=== PATIENT | female | born 1960 | race Caucasian/White ===

== ENCOUNTER → 2017-12-10 08:37 | Outpatient (CLI) | payer OTHER, SELFPAY ==
--- NOTE | 2017-12-10 08:43 | MRI_ITS ---
STUDY: MRI LUMBAR SPINE WITHOUT CONTRAST REASON FOR EXAM: Female, 57 years old. back pain, RIGHT SCIATIC PAIN, RIGHT LEG NUMBNESS, PAIN INTO BILAT BUTTOCKS. TECHNIQUE: Standardized fat and water weighted pulse sequences were obtained in the sagittal and axial planes. COMPARISON: September 21, 2012 FINDINGS: T12-L1: There is mild disc space narrowing and endplate spondylosis. There is no significant central canal or foraminal stenosis. Normal lumbar lordosis. There is no substantial scoliosis. Normal conus medullaris that terminates at the L1/L2 L1-2: There is mild disc space narrowing and endplate spondylosis. There is mild facet arthropathy without significant central canal or foraminal stenosis. L2-3: There is moderate disc space narrowing and endplate spondylosis. There is facet arthropathy with moderate central canal and mild bilateral foraminal stenosis. Findings are stable since the prior examination L3-4: There is moderate disc space narrowing and endplate sclerosis. There is a mild disc bulge and facet hypertrophy with mild central canal and mild bilateral foraminal stenosis. L4-5: There is moderate disc space narrowing and endplate spondylosis. There is facet arthropathy with severe central canal stenosis. There is mild bilateral foraminal stenosis. Findings are stable since the prior examination L5-S1: There is moderate disc space narrowing and endplate spondylosis. There is extensive facet arthropathy with mild central canal stenosis. There is mild bilateral foraminal stenosis. Findings are stable since the prior examination. Normal visualized sacral ala. Normal visualized paraspinous soft tissue structures. MRI/Spine Lumbar (Routine) IMPRESSION: Stable examination. L2/L3: Moderate central canal stenosis. L4/L5: Severe central canal stenosis. L5/S1: Severe facet arthropathy. Electronically Signed: Sebastian García MD at 8:35 EDT Tel , Service support ,
== END ==
PROVIDERS: Family Provider Family Medicine; PCP Family Medicine; Visit Provider Anesthesiology Pain Medicine
DX: M54.9 Dorsalgia, unspecified (principal); M79.606 Pain in leg, unspecified
CPT/HCPCS: 72148

== ENCOUNTER → 2018-01-20 07:31 | Outpatient (CLI) | payer OTHER, SELFPAY ==
--- NOTE | 2018-01-20 07:45 | MRI_ITS ---
STUDY: MRI RIGHT ANKLE WITHOUT CONTRAST REASON FOR EXAM: Female, 57 years old. Pain. TECHNIQUE: Standardized fat and water weighted pulse sequences were obtained in all 3 orthogonal planes. COMPARISON: None. FINDINGS: Normal subcutis adipose space. Normal posterior tibialis tendon. Normal flexor digitorum longus tendon. Normal flexor hallucis longus tendon. Normal peroneus longus and brevis tendons. There is tenosynovitis of the tibialis anterior tendon. Normal extensor hallucis longus tendon. Normal extensor digitorum longus tendons. Normal Achilles tendon and teno-osseous insertion. There is thickening of the central cord of the plantar fascia, without a plantar fasciitis or plantar fascial tear, consistent with plantar fascial degeneration. There is a plantar calcaneal spur, but without cancellous marrow edema. Normal intrinsic muscles of the rearfoot. Normal distal tibiofibular syndesmotic ligamentous complex. Normal lateral ligamentous complex. Normal subtalar ligaments and sinus tarsi. Normal deltoid ligamentous complexes. Normal plantar calcaneonavicular (spring) ligament. There is a joint effusion of the tibiotalar articulation with capsular distension. Normal talar dome. Mild arthritic change of the subtalar articulations. Mild arthritic change at the talonavicular articulation. Normal calcaneocuboid articulation. Normal navicular-cuneiform articulations. MRI/Lower Ext Joint Only (Routine) IMPRESSION: Tenosynovitis of the tibialis anterior. Mild arthritic changes of the hindfoot. Plantar heel spur. Thickening of the plantar fascia. No osteochondral injury of the talar dome. Electronically Signed: Jimy Chiang MD at 9:37 EDT , Service support ,
== END ==
PROVIDERS: Family Provider Family Medicine; PCP Family Medicine; Visit Provider Podiatrist
DX: M25.571 Pain in right ankle and joints of right foot (principal); G57.50 Tarsal tunnel syndrome, unspecified lower limb
CPT/HCPCS: 73721

== ENCOUNTER → 2018-04-20 12:13 | Outpatient (CLI) | payer OTHER, SELFPAY | PROVIDERS: Family Provider Family Medicine; PCP Family Medicine; Visit Provider Family Medicine | DX: Z01.818 Encounter for other preprocedural examination (principal) | CPT/HCPCS: 71046 ==

== ENCOUNTER 2018-04-28 16:00 | Observation (INO) | payer OTHER, SELFPAY ==
[2018-04-28] VITALS (11 sets, daily range): BP systolic 118–142; BP diastolic 62–86; PULSE 74–98; RESP 15–18; TEMP 35.8–37.2; O2SAT 93–99; BMI 38.4
[2018-04-28] MEDS: Cefazolin 2 GM in 0.9% Normal Saline 100 ML IV (07:34)
[2018-04-28] MEDS: Bupivacaine Mpf 0.5% 30 ML VIAL (13:12)
--- NOTE | 2018-04-28 13:47 | PCM.DC.POD ---
Discharge Diet: No Restrictions Discharge Activity: May not drive while taking narcotic pain medications. Weight Bearing Status: No weight bearing Keep extremity elevated above heart level: Right Leg Call your doctor if your incision/area has: Continuous Slow Oozing, Sudden Increased Bleeding, Increased Pain/ Swelling, Increased Redness, Foul Smelling Discharge, Swelling at the incision site Call your doctor if you observe: Fever of 101 or Higher, Coldness, Increased Pain, Numbness or Tingling, Chest pain, Calf discomfort, Uncontrolled pain Cleanse incision/area with: Keep Dressing Clean & Dry Allergies/Adverse Reactions: Allergies adhesive tape Adverse Reaction (Mild, Verified 04/28/18 05:49) itching Medications to take at Discharge Ascorbic Acid [Vitamin C] 1,000 mg PO DAILY@0800 05/09/14 Calcium Carb/Vitamin D3/Vit K1 [Viactiv Soft Chew] 1 ea PO BID 05/09/14 Celecoxib [Celebrex] 200 mg PO DAILY 05/09/14 Gabapentin [Neurontin] 300 mg PO QHS 05/09/14 Glucosa Santa 2Kcl/Chondroitin Santa [Glucosamine-Chondroitin Cap] 4 ea PO DAILY 05/09/14 Tizanidine HCl [Zanaflex] 4 mg PO QHS 11/14/14 acetaminophen 500 mg tablet 500 mg PO Q6H PRN 08/19/17 traMADol [Ultram (G)] 50 mg PO Q6H PRN PRN 04/24/18 Primary Care Physician: Waldemar Raymond MD [Primary Care Provider] - Test Results: Test results from this visit will be discussed in further detail at your follow-up appointment, if applicable. Please Follow Up With: Maggy Graham DPM
--- NOTE | 2018-04-28 13:49 | PCM.IMDPSTOP ---
Problem List (1) Right foot pain Status: Chronic (2) Hallux valgus (acquired), right foot Status: Chronic (3) Pes planus of right foot Status: Chronic (4) Gastrocnemius equinus of right lower extremity Status: Chronic Immediate Post-Op Note Date of Procedure: 04/28/18 - Health Social Work Professor: Beti Brooks PGY3. Surgeon: Maggy Graham DPM Primary Surgeon/Physician: Maggy Graham DPM tortilla maker: none Pre-Operative Diagnosis: pes planus symptomatic, right. gastrocnemius equinus, right. hallux valgus, right Post-Operative Diagnosis: pes planus symptomatic, right. gastrocnemius equinus, right. hallux valgus, right Surgery/Procedure Performed:: gastrocnemius open recession, right. sergey calcaneus osteotomy with graft, right. flexor digitorum longus tendon transfer with plication to posterior tibialis tendon, right. lapidus bunionectomy with internal fixation, right Description of Surgical Findings:: Hemostasis controlled Materials: 2-0 Vicryl, 3-0 Vicryl, 4-0 nylon, 4.0 mm cannulated short threaded screw, 2?3.5 mm locking screws, 2?3.5 mm cortical screws, plantar Lapidus standard plate, 4.75 swivel lock Bio-Tenodesis screw, titanium/bone graft 18 mm Marcial wedge The patient tolerated the procedure well and was transported to the PACU with vital signs stable and vascular status intact to the right lower extremity. She was advised to remain non weightbearing. Orders were placed electronically. Post operative xrays were ordered. Estimated Blood Loss: <200 mL Specimen's removed: none Type of Anesthesia:: General/Regional, Local - Preop: 4 cc of one-to-one mix of 1% lidocaine with epinephrine administered to gastrocnemius recession site, right lower extremity Postop: 13 cc total administered to the right lower extremity including saphenous and tibial nerve block and local infiltrative block to the lateral surgical site - Admit VTE Documentation VTE Present on Admission: No VTE Mechan Device Prophylaxis: SCD's VTE Pharm Prophylaxis ordered?: Yes
--- NOTE | 2018-04-28 13:55 | PCM.OPRPT ---
Problem List (1) Right foot pain Status: Chronic (2) Hallux valgus (acquired), right foot Status: Chronic (3) Pes planus of right foot Status: Chronic (4) Gastrocnemius equinus of right lower extremity Status: Chronic Report of Operation Date of Procedure: 04/28/18 - Roll Carrier: Beti Brooks PGY3. Surgeon: Maggy Graham DPM Pre-Operative Diagnosis: pes planus symptomatic, right. gastrocnemius equinus, right. hallux valgus, right Post-Operative Diagnosis: pes planus symptomatic, right. gastrocnemius equinus, right. hallux valgus, right Surgery/Procedure Performed:: gastrocnemius open recession, right. sergey calcaneus osteotomy with graft, right. flexor digitorum longus tendon transfer with plication to posterior tibialis tendon, right. lapidus bunionectomy with internal fixation, right Description of Surgical Findings:: Hemostasis: Well-padded pneumatic right thigh tourniquet, 300 mmHg Materials: 2-0 Vicryl, 3-0 Vicryl, 4-0 nylon, 4.0 mm cannulated short threaded screw, 2?3.5 mm locking screws, 2?3.5 mm cortical screws, plantar Lapidus standard plate, 4.75 swivel lock Bio-Tenodesis screw, marcial Biosync anatomic reconstructive wedge with porous titanium (8 mm) Complications: None leather crafter: none Type of Anesthesia:: General/Regional, Local - Preop: 4 cc of one-to-one mix of 1% lidocaine with epinephrine administered to gastrocnemius recession site, right lower extremity Postop: 13 cc total administered to the right lower extremity including saphenous and tibial nerve block and local infiltrative block to the lateral surgical site Specimen's removed: none Estimated Blood Loss (mL): <200 mL Description of Procedure: Indications: This is a 57-year-old female with significant past medical history of obesity, chronic back pain, and chronic pain with multiple orthopedic conditions who continues to complain of right foot pain that is affecting her daily work and daily activities. She is unable to bear weight and get through a regular work shift. She is failed conservative care including orthotics, physical therapy, stretching, cortisone injections, strengthening, pain medications, Wendy brace. She has progressive flattening of her foot with advanced bunion deformity. Most recently her pain is consistent with lateral impingement. She does have x-rays which demonstrated a severe increased intermetatarsal angle with prominent medial eminence of the first metatarsal head and lateral hallux deviation. There is also decreased calcaneal inclination angle, anterior displaced cyma line, increased Meary's angle and midtarsal breach. Her pain on palpation is over by the lateral sinus tarsi location and weightbearing stance to the plantar arch and medial foot. She did also have an MRI done and this demonstrated subtle tenosynovitis of the posterior tibial tendon, very mild bone edema consistent with lateral impingement and mild arthritis changes to the rearfoot. There is no talar dome lesion or advanced arthritis of the ankle noted on the MRI. She did have a diagnostic injection to the sinus tarsi which did not provide more than 20% relief. She did have a diagnostic injection to the tarsal tunnel around the tibial nerve and this did not provide relief to her medial foot symptoms. Her EMG nerve conduction study are also noted and she does have history of chronic back pain and this may also be contributing to her condition. Her planar dominance is in the transverse plane when she is evaluated with walking gait and in stance. Her preoperative clearance and history and physical from Dr. Raymond was reviewed. Her preoperative diagnostic data was also reviewed including labs, EKG, and chest xray. The preoperative indications, planned procedure, possible benefits, risks, complications, and anticipated healing time and management were discussed in detail with patient. She understands and elects to proceed with surgery at this time. She understands complications may include but are not limited to the following: Pain, swelling, scarring, nontender delayed healing, over or under correction, hardware failure, need for further surgery, allergic reactions, blood clots, loss of limb, function, life. I answered all of her questions. The informed surgical consent and surgical limb were signed. Procedure in detail: The patient was transferred to the operating room via cart and placed on the operating table in supine position. Final verification the patient, surgery, limb designation was performed via the timeout procedure. A bump was placed to allow good exposure to the lateral rear foot. Well-padded pneumatic thigh tourniquet was placed. General anesthesia was initiated by the anesthesia team. The right lower extremity was prepped and draped in the usual aseptic manner. Next her posterior leg flexibility was evaluated for equinus with the Silverskold test. She had improve ankle dorsiflexion with the knee flexed and the decision to perform a gastrocnemius recession was performed. I administered the preoperative local block with lidocaine with epinephrine to the gastrocnemius recession site. A 3 cm linear incision was about three cm distal to the medial head of the gastrocnemius muscle belly through the skin just medial to the leg midline. Care was taken at this point and throughout all of the procedures performed today to identify, protect, and retract all neurovascular structures. Blunt dissection was performed down to the fascial layer in which the aponeurosis was identified. Careful dissection was performed with tenotomy scissors to release just the gastrocnemius layer (Lauren technique). Ankle dorsiflexion was improved. This was copiously irrigated with normal saline. Deep closure was achieved with Vicryl. Next, an Esmarch bandage was used to exsanguinate the right lower extremity and the tourniquet was inflated at this time. Surgery proceeded in the following manner: Attention was next directed to the lateral aspect of the hindfoot in which a curvilinear incision was made to gain exposure to the anterior calcaneus to allow surgical correction. This incision was made through the skin and blunt dissection was performed down to the extensor digitorum brevis taking care to further identify protect and retract all neurovascular bundles at this time and throughout the remainder of the procedure. The anterior process of the calcaneus was identified in the extensor digitorum brevis muscle was reflected to gain good exposure as were the peroneal tendons. The calcaneal cuboid joint was identified with intraoperative fluoroscopy with a needle. Approximately 1.2 cm proximal to the joint, an osteotomy was made with a sagittal saw and osteotome. A small joint distractor was used to open this site to find the appropriate correction needed in multiple planes. An Arthrex Navitellync trapezoid shaped wedge was placed according to standard protocol (8mm). It is noted that the cyma line was reduced and full talar head coverage was achieved. The subtalar joint moved freely. The wound was irrigated and deep closure was performed over this site with the extensor digitorum brevis muscle belly tagged over the wedge to the anterior calcaneus. Attention was next directed to the medial aspect of the foot in which a curvilinear incision was made over the posterior tibialis tendon also extending distally to the navicular attachment site and further distal to the proximal phalanx of the hallux in preparation for the later bunionectomy procedure. No hypertrophy of the navicular was noted. The flexor digitorum longus tendon was carefully dissected and was released as distal as possible taking care to identify and preserve neurovascular structures in this area. This tendon (FDL) was viable and thus was selected for tendon transfer. The Bio-Tenodesis screw was next used to apply the flexor digitorum tendon transfer into the navicular utilizing proper technique and with the foot in a plantarflexed and inverted position with zero tension. Anastomosis was next performed between this flexor digitorum longus tendon and the posterior tibialis tendon at this site with size 0 FiberWire. Deep closure was next performed with Vicryl to provide additional stability. The subtalar joint was placed in neutral and her foot was evaluated for forefoot varus in which this was not identified. The medial column was evaluated and a first metatarsal cuneiform arthrodesis with bunion correction to correct her full deformity was performed next. Attention was next directed towards the bunion deformity. The medial incision was extended distally in the interface between the abductor hallucis muscle belly and plantar first metatarsal was identified and carefully dissected. The first metatarsocuneiform articulation was identified clinically and confirmed with intraoperative fluoroscopy. A 15 blade, osteotomes, curettes, and sagittal saw was used to denude the articular surface down to bleeding healthy subchondral bone in the joint was mobilized to allow for correction. A K wire and tenaculum were placed with the first metatarsal now with varus rotation correction achieved. Sesamoid reduction, decreased first intermetatarsal angle, and [id number] approximation was confirmed with intraoperative fluoroscopy. Cancellous bone chips were placed into the arthrodesis site and temporary fixation across the site with K wires was placed. A plantar Arthrex Lapidus plate was fashioned and temporary held in place with wires and BB taks. The tourniquet was deflated and brisk capillary refill time was noted to all digits of the right foot. There was no pulsatile bleeding noted and pressure was applied to maintain hemostasis. The tourniquet was deflated for an appropriate amount of time to allow tissue reperfusion for over 20 minutes. Reinflation was later performed after Esmarch reexsanguination. The plate was secured distally prior to compression screw application. Care was taken to remove all temporary fixation while the compression was applied. Lastly the plate was secured proximally and the unit was clinically and radiographically stressed and appeared to be stable as one solid unit. The reduction was maintained and all screws and hardware placement maintained the proper and desired trajectory. Next, attention was directed to the first metatarsophalangeal joint in which careful capsular dissection was performed. A sagittal saw was used to resect the hypertrophic medial prominent eminence taking care to preserve the sagittal sulcus. Additional cheilectomy was performed dorsally to allow improved sagittal plane motion. The joint was smooth and gliding. A McGlamry elevator was used to mobilize as slightly adhesed lateral sesamoid. This was irrigated with copious normal saline. No first metatarsal head osteotomy was deemed necessary nor there any first metatarsal head osteochondral defect. Capsular closure was next achieved with 2-0 Vicryl taking care to maintain the desired bony correction and a capsulorrhaphy was performed with 2-0 Vicryl for reapproximation. Additional deep closure was performed to all sites utilizing 2-0 and 3-0 Vicryl. The tourniquet was again deflated at this time and brisk capillary refill time was noted to all digits of the foot. There was no pulsatile bleeding. The skin was reapproximated 4-0 nylon utilizing horizontal mattress and simple suture techniques all sites. Next, the patient was evaluated with final intraoperative fluoroscopy demonstrating desired position of the Marcial osteotomy wedge, bunion correction, and overall foot position. A postoperative injection was administered. A dressing consisting of Betadine soaked Adaptic, gauze, abdominal pads, Kerlix, webril were applied. A well-padded posterior mold was placed with the foot in a neutral slightly inverted and plantarflexed position to protect the tendon transfer site. After procedure: The patient tolerated the procedure and anesthesia well was transported to the PACU with vital signs stable and vascular status intact to the right foot. Postoperative x-rays were obtained and reviewed as noted previously. She was advised to maintain strict nonweightbearing status to the right lower extremity use crutches for assistance. She did obtain a popliteal regional block for pain control. Her family is concerned about her returning home due to pain when the block wears off and it is noted she has had extensive work performed today and she does have history of chronic pain issues. She will be monitored under observation status until tomorrow morning to assist with pain control. Postoperative orders were entered electronically. She will resume DVT prophylaxis medication tomorrow. She understands her surgical and postoperative risks. To keep her dressing clean, dry, and intact until follow-up next week. I will follow her closely in house. She is advised to ice and elevate for pain and inflammation management. Additional postoperative orders were entered electronically. Maggy Graham DPM, FACF[facility] - Complications None
--- NOTE | 2018-04-28 16:06 | PCM.HP.STD ---
History of Present Illness Date of Admission: 04/28/18 Chief Complaint: status post gastrocnemius open recession, right. sergey calcaneus osteotomy with graft, right. flexor digitorum longus tendon transfer with plication to posterior tibialis tendon, right. lapidus bunionectomy with internal fixation, right The patient is a 57 year old F who underwent astrocnemius open recession, right. sergey calcaneus osteotomy with graft, right. flexor digitorum longus tendon transfer with plication to posterior tibialis tendon, right. lapidus bunionectomy with internal fixation, right. Patient groggy and had a nerve blocks as feeling in her right leg at this time. Denies any new complaints. [] Past Medical History Past Medical History (Chronic Problems): Chronic Problems (Last Reviewed 04/28/18 @ 16:07 by Shawn Louise DO) Right foot pain (Chronic) Hallux valgus (acquired), right foot (Chronic) Pes planus of right foot (Chronic) Gastrocnemius equinus of right lower extremity (Chronic) DDD (degenerative disc disease), lumbar (Chronic) Arthritis (Chronic) Sciatica (Chronic) Obesity (BMI 30-39.9) (Chronic) Medical History: Medical History (Last Reviewed 04/28/18 @ 16:07 by Shawn Louise DO) DDD (degenerative disc disease), lumbar (Chronic) M51.36 Arthritis M19.90 Deficiency of internal organs Z87.898 History of back pain Z87.39 Knee pain, right M25.561 Polyneuropathy G62.9 Post hysterectomy menopause E89.40, Z90.710 Allergies adhesive tape Adverse Reaction (Mild, Verified 04/28/18 05:49) itching Home Medications: Ambulatory Orders Medication Instructions Recorded Ascorbic Acid [Vitamin C] 1,000 mg PO DAILY@0800 05/09/14 Calcium Carb/Vitamin D3/Vit K1 1 ea PO BID 05/09/14 [Viactiv Soft Chew] Celecoxib [Celebrex] 200 mg PO DAILY 05/09/14 Gabapentin [Neurontin] 300 mg PO QHS 05/09/14 Glucosa Santa 2Kcl/Chondroitin Santa 4 ea PO DAILY 05/09/14 [Glucosamine-Chondroitin Cap] Tizanidine HCl [Zanaflex] 4 mg PO QHS 11/14/14 acetaminophen 500 mg tablet 500 mg PO Q6H PRN 12/15/17 traMADol [Ultram (G)] 50 mg PO Q6H PRN PRN 04/24/18 Surgical History: Surgical History (Last Reviewed 04/28/18 @ 16:07 by Shawn Louise DO) H/O arthroscopy of right knee Z98.890 H/O hernia repair Z98.890, Z87.19 H/O tubal ligation Z98.51 History of bunionectomy of left great toe Z98.890 History of surgical removal of ganglion cyst Z98.890 Hx of rotator cuff surgery Z98.890 S/P laparoscopic assisted vaginal hysterectomy (LAVH) Z90.710 Total knee replacement status Z96.659 Surgical History: hysterectomy, rotator cuff repair Smoking Status: Former smoker - *Family History Maternal Family History: Family History (Last Reviewed 04/28/18 @ 16:07 by Shawn Louise DO) Mother Breast cancer Dementia Father Prostate cancer Hypertension Review of Systems Constitutional: Denies: Anorexia, Chills, Fever Eyes: Denies: Blurred vision, Double vision HEENT: Denies: Head Aches, Sinus Congestion, Sinus Drainage Cardiovascular: Denies: Chest Pain, Palpitations Respiratory: Denies: Cough, Shortness of breath at rest, Sputum production Gastrointestinal: Denies: Abdominal Pain, Nausea, Vomiting Genitourinary: Denies: Dysuria Musculoskeletal: Denies: Joint Pain, Joint Tenderness Skin: Denies: Rash, Wounds Neurological: Denies: Numbness, Tingling, Focal weakness Psychiatric: Denies: Anxiety, Depression Hematologic/ Lymphatic: Denies: Easy Bruising, Easy Bleeding, Hx of blood clot Comment: Groggy. All review of systems are negative except as mentioned in the history of present illness and the other review of systems. VTE Information - Inpt Only VTE Present on Admission: No VTE Pharm Prophylaxis ordered?: Yes - Physical Exam General: Alert, Cooperative, No apparent distress HEENT: Atraumatic, Normocephalic Oral: Moist Mucosa, No Gingival or Mucosal Lesions/ Ulcerations Neck: No Nodes, Thyroid Normal Size and Texture Lungs: Clear to auscultation, Normal air movement, No rhonchi, No wheeze Cardiovascular: Regular rate, Regular Rhythm, Normal S1, Normal S2, No murmurs Abdomen: Bowel Sounds Present, Soft, Non Tender, Non-Distended, No Hepato-splenomegaly Extremities: No edema, No Calf Tenderness, - - Right lower extremity in a splint and Neftali wrap, did not remove. Skin: No rashes, No breakdown Neurological: - - Not able to move the digits of her left foot at this time Psych/Mental Status: Normal Affect, Appropriate Vital Signs Temp Pulse Resp BP Pulse Ox 36.3 C L 74 18 129/84 H 95 04/28/18 14:35 04/28/18 14:35 04/28/18 14:35 04/28/18 14:35 04/28/18 14:35 Oxygen Flow Rate (L/min) 2 Oxygen Delivery Method Room Air Weight: 104.8 kg Body Mass Index (BMI) 38.4 Intake and Output for Last 24 Hours 04/26/18 04/27/18 04/28/18 23:59 23:59 23:59 Intake Total 2500 / 2500 Balance 2500 / 2500 Assessment/Plan All Active Problems (Last Reviewed 04/28/18 @ 16:07 by Shawn Louise DO) Sinusitis (Acute) Gastroenteritis (Acute) Pharyngitis, acute (Acute) Right calf pain (Acute) Osteoarthritis (Acute) Sciatica (Acute) Segmental and somatic dysfunction of cervical region (Acute) Segmental and somatic dysfunction of thoracic region (Acute) Segmental and somatic dysfunction of lumbar region (Acute) Status post bilateral knee replacements (Acute) 1. Status postastrocnemius open recession, right. sergey calcaneus osteotomy with graft, right. flexor digitorum longus tendon transfer with plication to posterior tibialis tendon, right. lapidus bunionectomy with internal fixation, right Plan is to bring the patient under observation status to ensure adequate pain control given the extensive surgery. Patient will have pain medications available and have been ordered Podiatry will follow and help direct care 2. DVT prophylaxis: Caridadnox Code Visit OBSV E&M: 30596 Initial observation care L2
[2018-04-28] MEDS: Ondansetron 4 MG/2 ML Vial IV (18:21)
[2018-04-28] MEDS: Acetaminophen 500 MG Tablet PO (18:21)
[2018-04-28] MEDS: 0.9% NaCl Peripheral Flush Adult/Peds IV (18:22)
[2018-04-28] MEDS: Gabapentin 300 MG Capsule PO (20:53)
[2018-04-28] MEDS: Multivitamins,Therapeutic Tablet 1 TABLET PO (20:53)
[2018-04-28] MEDS: tiZANidine HCl 2 MG Tablet 4 MG PO (20:53)
[2018-04-28] MEDS: Ketorolac 30 MG/ML Syringe IV (22:55)
[2018-04-29 03:20] VITALS: BP 118/59; PULSE 103; RESP 15; TEMP 37.3; O2SAT 95
[2018-04-29 04:00] VITALS: RESP 15
--- NOTE | 2018-04-29 06:38 | PCM.PROGNOTE ---
Subjective: This 57-year-old female seen bedside status post (day #1) right lower extremity gastrocnemius open recession, sergey's calcaneus osteotomy with graft, flexor digitorum longus tendon transfer with plication to posterior tibialis tendon, and lapidus bunionectomy with internal fixation. She relates her pain is under control and she only has partial feeling of her right foot at this time. Her nausea has resolved. She denies fever, chill, vomiting, loss of appetite, calf pain, shortness of breath, chest pain. She is elevating her surgical limb and hopes to go home later today. - Physical Exam General: Alert, Oriented x3, Cooperative HEENT: Atraumatic Extremities: No cyanosis, No edema, Capillary Refill Less than 3 Seconds - All digits right foot, No Calf Tenderness - Negative Menendez sign bilateral Skin: - - Dressing and splint remained clean dry and intact without strikethrough noted to right lower extremity Musculoskeletal: Tenderness - Active range of motion digits 1, 2, 3, 4, 5 to right lower extremity. Able to contract in the right lower extremity Neurological: - - Partial sensation to light touch to fifth toe. Epicritic sensation light touch is not returned yet to the remaining toes and she is able to feel pressure. Psych/Mental Status: Normal Affect, Appropriate Vital Signs Temp Pulse Resp BP Pulse Ox 99.2 F H 103 H 15 118/59 L 95 04/29/18 03:20 04/29/18 03:20 04/29/18 04:00 04/29/18 03:20 04/29/18 03:20 Oxygen Flow Rate (L/min) 2 Oxygen Delivery Method Room Air Weight: 104.8 kg Body Mass Index (BMI) 38.4 Intake and Output for Last 24 Hours 04/27/18 04/28/18 04/29/18 23:59 23:59 23:59 Intake Total 2635 / 2635 1389 / 1389 Output Total 2049 Balance 2635 / 2635 -661 / -661 Medical Necessity - Tobacco Use Smoking Status: Former smoker Assessment/Plan All Active Problems (Last Reviewed 04/28/18 @ 16:07 by Shawn Louise DO) Sinusitis (Acute) Gastroenteritis (Acute) Pharyngitis, acute (Acute) Right calf pain (Acute) Osteoarthritis (Acute) Sciatica (Acute) Segmental and somatic dysfunction of cervical region (Acute) Segmental and somatic dysfunction of thoracic region (Acute) Segmental and somatic dysfunction of lumbar region (Acute) Status post bilateral knee replacements (Acute) Postoperative day #1 right lower extremity for correction of symptomatic pes planus and hallux valgus Pain control I reviewed and discussed her case. Her postoperative x-rays were reviewed with foot deformity correction noted and hardware and desired position at the Marcial calcaneal osteotomy, tendon transfer, and Lapidus arthrodesis site. She demonstrates a very low-grade fever and this is likely secondary to anesthesia; she is asymptomatic. Her regional anesthetic block is still partially working and it is noted her pain is currently very controlled. Her nausea postoperative has resolved. I recommend she remain nonweightbearing the right lower extremity with crutches; she has these already. I recommend she keeps the dressing and splint clean dry and intact until she [facility] She has already been provided with postoperative pain control (norco) and DVT prophylaxis (xarelto) medication prescriptions, and she has these at home already. She understands proper use. She was advised to continue to ice and elevate for additional pain and inflammation management. I will continue to monitor her this morning and discharge home is likely once her regional block wears off and her pain remains controlled. Podiatry discharge recommendation document has been completed. Please do not hesitate to call if you have any questions. Medical management per hospitalist during this observation time is appreciated. I answered all of her questions. Maggy Graham DPM, [facility] [phone]
[2018-04-29 07:31] VITALS: BP 116/78; PULSE 95; RESP 16; TEMP 37.2; O2SAT 94
[2018-04-29] MEDS: oxyCODONE 5 MG Tablet PO (09:04)
[2018-04-29] MEDS: Enoxaparin 40 MG/0.4 ML Syringe SC (09:05)
[2018-04-29] MEDS: Multivitamins,Therapeutic Tablet 1 TABLET PO (09:05)
[2018-04-29] MEDS: Ascorbic Acid 500 MG Tablet 1000 MG PO (09:05)
--- NOTE | 2018-04-29 10:07 | PCM.DC ---
- Discharge Diagnoses Current Active Problems: Current Active and Chronic Problems (Last Reviewed 04/28/18 @ 16:07 by Shawn Louise DO) Right foot pain (Chronic) Hallux valgus (acquired), right foot (Chronic) Pes planus of right foot (Chronic) Gastrocnemius equinus of right lower extremity (Chronic) You will use the following diet at home:: No restrictions Your food should be the consistency of: Regular Your liquids should be the consistency of: Regular/Thin Discharge Activity: May not drive while taking narcotic pain medications., - Weight Bearing Status: No weight bearing Keep extremity elevated above heart level: Right Leg Call your doctor if your incision/area has: Continuous Slow Oozing, Sudden Increased Bleeding, Increased Pain/ Swelling, Increased Redness, Foul Smelling Discharge, Swelling at the incision site Call your doctor if you observe: Fever of 101 or Higher, Coldness, Increased Pain, Numbness or Tingling, Chest pain, Calf discomfort, Uncontrolled pain Cleanse incision/area with: Keep Dressing Clean & Dry Allergies/Adverse Reactions: Allergies adhesive tape Adverse Reaction (Mild, Verified 04/28/18 05:49) itching Medications to take at Discharge Ascorbic Acid [Vitamin C] 1,000 mg PO DAILY@0800 05/09/14 Calcium Carb/Vitamin D3/Vit K1 [Viactiv Soft Chew] 1 ea PO BID 05/09/14 Gabapentin [Neurontin] 300 mg PO QHS 05/09/14 Glucosa Santa 2Kcl/Chondroitin Santa [Glucosamine-Chondroitin Cap] 4 ea PO DAILY 05/09/14 Tizanidine HCl [Zanaflex] 4 mg PO QHS 11/14/14 acetaminophen 500 mg tablet 500 mg PO Q6H PRN 08/19/17 Hydrocodone Bitart/Apap 5-325 [Mojave 5MG-325MG] 1 tablet PO Q6H PRN PRN #1 tablet 04/29/18 Rivaroxaban [Xarelto] 10 mg PO DAILY #1 tablet 04/29/18 The following prescriptions were given: Hydrocodone Bitart/Apap 5-325 [Mojave 5MG-325MG] 1 tablet PO Q6H PRN PRN #1 tablet PRN Reason: Pain Rivaroxaban [Xarelto] 10 mg PO DAILY #1 tablet Primary Care Physician: Waldemar Raymond MD [Primary Care Provider] - Within 2 Weeks Test Results: Test results from this visit will be discussed in further detail at your follow-up appointment, if applicable. Please Follow Up With: Maggy Graham DPM When: 05/05/18 Proposed Discharge Date: 04/29/18
--- NOTE | 2018-04-29 10:08 | PCM.DC.SUM ---
Discharge Date and Diagnosis Date of Admission: 04/28/18 Date of Discharge: 04/29/18 - Secondary Discharge Diagnosis Chronic Problems (Last Reviewed 04/28/18 @ 16:07 by Shawn Louise DO) Right foot pain (Chronic) Hallux valgus (acquired), right foot (Chronic) Pes planus of right foot (Chronic) Gastrocnemius equinus of right lower extremity (Chronic) DDD (degenerative disc disease), lumbar (Chronic) Arthritis (Chronic) Sciatica (Chronic) Obesity (BMI 30-39.9) (Chronic) Hospital Course and Treatment Imaging Results: Clinical Impression(s) from Imaging Studies Foot X-Ray 04/28/18 07:30 IMPRESSION: 1. Surgical fusion with metal hardware across the first tarsometatarsal articulation. 2. Mild hallux valgus deformity. 3. Old healed fracture deformity at the midshaft of the right second metatarsal. Electronically Signed: Bhavesh Jaramillo MD at 19:33 EDT , Service support , Foot X-Ray 04/28/18 13:55 IMPRESSION: Status post fusion at the first tarsometatarsal joint as well as osteotomy along the anterior aspect of the calcaneus with insertion of a metallic prosthesis. Electronically Signed: Juancarlos Garcia MD at 14:14 EDT Tel [phone], Service support , Fascione Operations: - - gastrocnemius open recession, right. sergey calcaneus osteotomy with graft, right. flexor digitorum longus tendon transfer with plication to posterior tibialis tendon, right. lapidus bunionectomy with internal fixation, right Procedures: None Summary of Care Provided: The patient is a 57 year old F presents after having surgery for gastrocnemius open recession, right. sergey calcaneus osteotomy with graft, right. flexor digitorum longus tendon transfer with plication to posterior tibialis tendon, right. lapidus bunionectomy with internal fixation, right. Patient was brought in for just pain management to ensure that her pain did not get out of control at home. Patient had a nerve block and its wearing off this morning but is otherwise feeling well. Patient is anxious to go home. Patient already has prescription for Abrams as well as Xarelto for DVT prophylaxis prescribed by Dr. Graham. Patient will be nonweightbearing to her right leg. Patient will follow-up with podiatry on the . Physical exam Vital Signs Height 1.65 m Weight: 104.8 kg Weight in Pounds 231.0 lbs Pulse Ox 94 Temperature 37.2 C Pulse Rate 95 Respiratory Rate 16 Blood Pressure 116/78 Blood Pressure Position Semi-Fowlers No acute distress and afebrile. Head is atraumatic and normocephalic. Patient able to move all extremities spontaneously. [] Discharge Diet: No Restrictions Discharge Activity: May not drive while taking narcotic pain medications., - Weight Bearing Status: No weight bearing Keep extremity elevated above heart level: Right Leg Call your doctor if your incision/area has: Continuous Slow Oozing, Sudden Increased Bleeding, Increased Pain/ Swelling, Increased Redness, Foul Smelling Discharge, Swelling at the incision site Call your doctor if you observe: Fever of 101 or Higher, Coldness, Increased Pain, Numbness or Tingling, Chest pain, Calf discomfort, Uncontrolled pain Cleanse incision/area with: Keep Dressing Clean & Dry Home Medications: Medications to take at Discharge Ascorbic Acid [Vitamin C] 1,000 mg PO DAILY@0800 05/09/14 Calcium Carb/Vitamin D3/Vit K1 [Viactiv Soft Chew] 1 ea PO BID 05/09/14 Gabapentin [Neurontin] 300 mg PO QHS 05/09/14 Glucosa Santa 2Kcl/Chondroitin Santa [Glucosamine-Chondroitin Cap] 4 ea PO DAILY 05/09/14 Tizanidine HCl [Zanaflex] 4 mg PO QHS 11/14/14 acetaminophen 500 mg tablet 500 mg PO Q6H PRN 08/19/17 Hydrocodone Bitart/Apap 5-325 [Abrams 5MG-325MG] 1 tablet PO Q6H PRN PRN #1 tablet 04/29/18 Rivaroxaban [Xarelto] 10 mg PO DAILY #1 tablet 04/29/18 Following Prescrptions Were Given to Patient: Hydrocodone Bitart/Apap 5-325 [Abrams 5MG-325MG] 1 tablet PO Q6H PRN PRN #1 tablet PRN Reason: Pain Rivaroxaban [Xarelto] 10 mg PO DAILY #1 tablet Primary Care Physician: Waldemar Raymond MD [Primary Care Provider] - Within 2 Weeks Please Follow Up With: Maggy Graham DPM When: 05/05/18 Disposition: Home Minutes spent on discharge:: 28 Patient Condition:: Good Medical Necessity - Tobacco Use Smoking Status: Former smoker Meaningful Use Info Meaningful Use Diagnoses (Choose all that apply): None applicable Code Visit OBSV E&M: 44220 Observation care discharge
== END 2018-04-29 11:50 | disposition home or self-care (01) ==
LOC: MS3 05-01 07:29 → SDC 05-01 07:29
PROVIDERS: Podiatrist; Family Provider Family Medicine; PCP Family Medicine
PROC: (CPT 28300; principal; 2018-04-28 07:15)
DX: M21.41 Flat foot [pes planus] (acquired), right foot (principal); M20.11 Hallux valgus (acquired), right foot; M51.36 Other intervertebral disc degeneration, lumbar region; E66.9 Obesity, unspecified; Z68.38 Body mass index [BMI] 38.0-38.9, adult; Z71.3 Dietary counseling and surveillance; Z79.899 Other long term (current) drug therapy; Z87.891 Personal history of nicotine dependence
CPT/HCPCS: 27687; 27691; 28300; 64445; 73620; 73630; 76000; 96372; 96374; 96375; 99218; C1713; J7120; A4216; G0378; G0379; J2405

== ENCOUNTER → 2018-08-18 08:16 | Outpatient (CLI) | payer OTHER, SELFPAY ==
[2018-08-18 17:00] VITALS: BMI 34.4
--- OUTSIDE RECORDS SUMMARY | 2018-11-22 11:31 | XMS RPT_ITS ---
:1960 Author Organization [place] Support Name Relationship Address Phone GABO DUFFY Unavailable [address] + [place] [address] WC Unavailable [address] + [place] [address] GABO DUFFY Unavailable [address] + [place] [address] WC Unavailable [address] + [place] [address] GABO DUFFY Unavailable [address] + [place] [address] WC Unavailable [address] + [place] [address] GABO DUFFY Unavailable [address] + [place] [address] [facility] Unavailable [address] + [place] [address] GABO DUFFY Unavailable [address] + [place] [address] [facility] Unavailable [address] + [place] [address] GABO DUFFY Unavailable [address] + [place] [address] [facility] Unavailable [address] + [place] [address] CLIVE, GABO Unavailable [address] + [place] [address] [facility] Unavailable [address] + [place] [address] OREGABO Bey Unavailable [address] + [place] [address] [facility] Unavailable [address] + [place] [address] OREM, GABO Unavailable [address] + [place] [address] [facility] Unavailable [address] + [place] [address] OREM, GABO Unavailable [address] + [place] [address] [facility] Unavailable [address] + [place] [address] O[place], GABO Unavailable [address] + [place] [address] [facility] Unavailable [address] + [place] [address] [place], GABO Unavailable [address] + [place] [address] [facility] Unavailable [address] + [place] [address] O[place], GABO Unavailable [address] + [place] [address] [facility] Unavailable [address] + [place] [address] O[place], GABO Unavailable [address] + [place] [address] [facility] Unavailable [address] + [place] [address] OREM, GABO Unavailable [address] + [place] [address] [facility] Unavailable [address] + [place] [address] O[place], GABO Unavailable [address] + [place] [address] [facility] Unavailable [address] + [place] [address] [place], GABO Unavailable [address] + [place] [address] [facility] Unavailable [address] + [place] [address] O[place], GABO Unavailable [address] + [place] [address] [facility] Unavailable [address] + [place] [address] [place], GABO Unavailable [address] + [place] [address] [facility] Unavailable [address] + [place] [address] GABO DUFFY Unavailable [address] + [place] [address] [facility] Unavailable [address] + [place] [address] Care Team Providers Name Role Phone Josue Hernandez Attending Unavailable Ranney, Christopher Referring Unavailable Josue Hernandez Attending Unavailable Ranney, Christopher Primary Care Unavailable Josue Hernandez Referring Unavailable DossiBeti quiroz D.C. Attending Unavailable Ranney, Christopher Referring Unavailable Ranney, Christopher Primary Care Unavailable Ranney, Christopher Attending Unavailable Ranney, Christopher Referring Unavailable Ranney, Christopher Primary Care Unavailable DossiBeti quiroz D.C. Attending Unavailable Ranney, Christopher Referring Unavailable Ranney, Christopher Primary Care Unavailable Ranney, Christopher Attending Unavailable Ranney, Christopher Referring Unavailable Ranney, Christopher Primary Care Unavailable DossiBeti quiroz D.C. Attending Unavailable Ranney, Christopher Referring Unavailable Ranney, Christopher Primary Care Unavailable DossiBeti quiroz D.C. Attending Unavailable Ranney, Christopher Referring Unavailable Ranney, Christopher Primary Care Unavailable DosBeti mcdonald D.C. Attending Unavailable Ranney, Christopher Referring Unavailable Ranney, Christopher Primary Care Unavailable ObinnaiRosita Attending Unavailable Basali Ayman Referring Unavailable Ranney, Christopher Primary Care Unavailable Bakari Lafleur Attending Unavailable Ranney, Christopher Referring Unavailable Ranney, Christopher Primary Care Unavailable Fascione, Maggy Attending Unavailable Fascione, Maggy Referring Unavailable Ranney, Christopher Primary Care Unavailable ASSESSMENT, HEALTH RISK Attending Unavailable Ranney, Christopher Referring Unavailable Ranney, Christopher Primary Care Unavailable Fascione, Maggy Referring Unavailable Ranney, Christopher Primary Care Unavailable Fascione, Maggy Consulting Unavailable Jopperi, Shawn Admitting Unavailable Jopperi, Shawn Attending Unavailable Ranney, Christopher Attending Unavailable Ranney, Christopher Referring Unavailable Ranney, Christopher Primary Care Unavailable Jopperi, Shawn Attending Unavailable Fascione, Maggy Referring Unavailable Ranney, Christopher Primary Care Unavailable Fascione, Maggy Consulting Unavailable Jopperi, Shawn Admitting Unavailable Jopperi, Shawn Attending Unavailable Fascione, Maggy Referring Unavailable [facility] Primary Care Unavailable Fascione, Maggy Consulting Unavailable Jopperi, Shawn Consulting Unavailable ASSESSMENT, HEALTH RISK Attending Unavailable [facility] Referring Unavailable [facility] Primary Care Unavailable Fascione, Maggy Attending Unavailable Fascione, Maggy Referring Unavailable [facility] Primary Care Unavailable Beti Vaughan D.C. Attending Unavailable [facility] Referring Unavailable [facility] Primary Care Unavailable PROBLEMS PROBLEMS DATE TYPE CONDITION / CODE ATTENDING STATUS SOURCE 09/27/2018 Unknown Z98.890 - Other Fascione, Maggy Active [place] specified [facility] postprocedural Hospital states / Repository Z98.890(ICD-10) 08/25/2018 Unknown M54.2 - Cervicalgia Segundo, Active [place] / M54.2(ICD-10) [facility] Repository 08/21/2018 Unknown J02.9 - Acute David, Josue Active [place] pharyngitis, Community unspecified / Hospital J02.9(ICD-10) Repository 04/29/2018 Unknown M19.90 - Unspecified Jopperi, Shawn Active [place] osteoarthritis, Community unspecified site / Hospital M19.90(ICD-10) Repository 04/20/2018 Unknown Z01.818 - Encounter Ranhenry, Active [place] for other [facility] preprocedural Hospital examination / Repository Z01.818(ICD-10) 12/10/2017 Unknown M54.9 - Dorsalgia, Basali, Ayman Active [place] unspecified / Community M54.9(ICD-10) Hospital Repository 12/10/2017 Unknown M79.606 - Pain in Basali, Ayman Active [place] leg, unspecified / Community M79.606(ICD-10) Hospital Repository 11/11/2017 Unknown M99.01 - Segmental Dossie, Beti Active [place] and somatic [facility] Community dysfunction of Hospital cervical region / Repository M99.01(ICD-10) 11/11/2017 Unknown M99.02 - Segmental Dossie, Beti Active [place] and somatic [facility] Community dysfunction of Hospital thoracic region / Repository M99.02(ICD-10) 11/11/2017 Unknown M99.03 - Segmental Dossie, Beti Active [place] and somatic [facility] Community dysfunction of Hospital lumbar region / Repository M99.03(ICD-10) 10/21/2017 Unknown M51.36 - Other Dossie, Beti Active [place] intervertebral disc [facility] Community degeneration, lumbar Hospital region / Repository M51.36(ICD-10) 09/30/2017 Unknown M54.30 - Sciatica, Dossie, Beti Active [place] unspecified side / [facility].C. Community M54.30(ICD-10) Hospital Repository PROCEDURES PROCEDURES No Procedure Records FoundRESULTS RESULTS MASSAGE THERAPY Observed: 09/25/2018 Status: F Source: [place] EVALUATION 1:23 PM [facility] REPOSITORY [facility] [address] [place] [address]. [address] [place] [address] / REHABILITATION SERVICES INITIAL EVALUATION MR#: [id number] Acct: [id number] Name: DEE DUFFY Rep #: [id number] : 1960 58 From: Moriah Hernandez Referring Dr.: Ari Raymond MD Status: REG RCR Insurance: [facility] [employer] SELF PAY INSURANCE Massage Therapy Evaluation: Initial Evaluation Date: 09/21/2018 Referred By: Dr. [place] EDEN/Age: 09 1960, 58 Diagnosis: Cervicalgia Medications: See med list in chart Goals: Decrease frequency and intensity of headaches Increase cervical range of motion Dcrease muscle stiffness Plan: To be seen one time a month or PRN for a total of 10 visits <Electronically signed by Moriah Hernandez > 09/25/18 1323 CC: Ari Raymond MD Signed RE-EVALUATION - PT (1) Observed: 09/19/2018 Status: F Source: [place] 10:45 AM [facility] REPOSIT[facility] [address] [place] [address]. [address] [place] [address] / REEVALUATION / MEDICARE RECERTIFICATION PHYSICAL THERAPY MR#: [id number] Acct: [id number] Name: DEE DUFFY Rep #: [id number] : 1960 58 From: Peterson Marte PT, ATC Referring DrAlisha: Maggy Graham DPM Status: REG RCR Insurance: [facility] SELF PAY INSURANCE Maggy Graham, DPM, It has been my pleasure to treat DEE DUFFY over the last 22 visits for S/P R foot surgery. Please see the progress note below for an update on the physical therapy plan of care! Subjective: Pt reports she is really sore today after a lot of walking yesterday in the hospital secondary to mother in law's LB surgery Objective/Function: R ankle pain is 4/10 currently. R ankle DF ROM= -3 degrees. R ankle strength is 4-/5 and painful. Pt was progressing well until having to walk a lot yesterday Plan Plan: Pt would benefit from further skilled therapy at increase strength and ROM of R ankle, and to work on decreasing pain. Attempt to get 12 more PT visits approved. Goals Goal 1:: Decrease R foot pain x 50% to aid with standing tolerance Goal Time Frame: 6-8 Weeks Goal Progress: Progressing Goal 2:: Increase R ankle DF ROM x 20 degrees to aid restoring a normalized gait pattern Goal Time Frame: 6-8 Weeks Goal Progress: Progressing Goal 3:: Increase R ankle strength x 1 grade to aid with RTW Goal Time Frame: 6-8 Weeks Goal Progress: Progressing Goal 4:: I with HEP Goal Time Frame: 6-8 Weeks Goal Progress: Goal Met Anticipated Interventions Patient/Client Instruction: Educate patient on: Condition, Plan of Care For the Purpose of:: To improve self management Therapeutic Exercise to Include: Strength training, Endurance training, Balance training, Flexibilty training, Gait and locomotor training, Active ROM For the Purpose of:: To decrease pain, To increase ROM, To improve muscle performance and motor function Cryotherapy (ice pack, ice massage): Yes For the Purpose of:: To decrease pain Please do not hesitate to contact me at [phone] by phone or if you have questions or concerns regarding this new plan of care! Sincerely, Peterson Marte, PT, ATC <Electronically signed by Peterson Marte PT, ATC> 09/19/18 1045 CC: Ari Raymond MD; Maggy Graham DPM [facility] Signed For Medicare only, by signing this I certify the plan of care. Physicians Signature Date RE-EVALUATION - PT (1) Observed: 09/08/2018 Status: F Source: JUNIOR 10:32 AM [facility] REPOSITORY [facility] [address] [facility] [address] [place] [address] / REEVALUATION / MEDICARE RECERTIFICATION PHYSICAL THERAPY MR#: [id number] Acct: [id number] Name: DEE DUFFY Rep #: [id number] : 1960 58 From: Peterson Marte PT, ATC Referring Dr.: Maggy Graham DPM Status: REG RCR Insurance: [facility] [employer] SELF PAY INSURANCE Maggy Graham DPM, It has been my pleasure to treat DEE DUFFY over the last 18 visits for S/P R foot surgery. Please see the progress note below for an update on the physical therapy plan of care! Subjective: Pt reports her heel is sore Objective/Function: R foot pain ranges from 3-6/10. R ankle MMT: R ankle is 4-/5 throughout with the exception of PF= 5/5. R ankle DF ROM: 6 degrees. Pt is progressing well toward Rx goals Plan Plan: Continue as angela Goals Goal 1:: Decrease R foot pain x 50% to aid with standing tolerance Goal Time Frame: 6-8 Weeks Goal Progress: Progressing Goal 2:: Increase R ankle DF ROM x 20 degrees to aid restoring a normalized gait pattern Goal Time Frame: 6-8 Weeks Goal Progress: Progressing Goal 3:: Increase R ankle strength x 1 grade to aid with RTW Goal Time Frame: 6-8 Weeks Goal Progress: Progressing Goal 4:: I with HEP Goal Time Frame: 6-8 Weeks Goal Progress: Progressing Anticipated Interventions Patient/Client Instruction: Educate patient on: Condition, Plan of Care For the Purpose of:: To improve self management Therapeutic Exercise to Include: Strength training, Endurance training, Balance training, Flexibilty training, Gait and locomotor training, Active ROM For the Purpose of:: To decrease pain, To increase ROM, To improve muscle performance and motor function Cryotherapy (ice pack, ice massage): Yes For the Purpose of:: To decrease pain Please do not hesitate to contact me at [phone] by phone or if you have questions or concerns regarding this new plan of care! Sincerely, Peterson Marte, PT, ATC <Electronically signed by Peterson Marte PT, ATC> 09/08/18 1032 CC: Ari Raymond MD; Maggy Graham DPM [facility] Signed For Medicare only, by signing this I certify the plan of care. Physicians Signature Date DISCHARGE SUMMARY Observed: 08/24/2018 Status: F Source: [place] 11:06 AM [facility] REPOSITORY [facility] Medical Records Department [address] [place] [address] Discharge Summary 08/24/184 MR#: [id number] Acct: [id number] Name: DEE DUFFY Rep #: [id number] : 1960 58 From: Moriah Hernandez PCP: Ari Raymond MD Status: REG RCR Y Location: [facility] Massage Therapy Discharge Summary: Initial Evaluation: 10/17/2017 Diagnosis: Cervicalgia No. of Visits: Date of last visit: 08/23/2018 Goals: Decreased neck and shoulder pain Decreased muscle tension Improved range of motion This patient is being discharged from our care at the [facility]. Thank you, Moriah Hernandez LMT 08/24/18 1106 <Electronically signed by Moriah Hernandez > Date Moriah Barnes Signature (if applicable): Date CC: Moriah Hernandez; Ari Raymond MD Signed Observed: 08/19/2018 Status: F Source: JUNIOR CULTURE, R/O STREP A 2:00 PM [facility] REPOSITORY [facility] Culture No Group A Beta Streptococcus isolated. * This cultures intended use is to screen for Beta Streptococcus A only. All other pathogens and potential pathogens will not be screened for or reported. If a complete workup of all potential pathogens is indicated an order for a routine throat culture is required. Performed By: #### M100.010 #### [facility] [address] [place], [place], [address] URGENT CARE VISIT Observed: 08/18/2018 Status: F Source: JUNIOR REPORT 5:45 PM [facility] REPOSITORY [facility] [address] [place] [address] [address] [place] [address] OFFICE VISIT Date of Service: 08/18/18 MR#: [id number] Acct: [id number] Name: DEE DUFFY Rep #: [id number] : 1960 Provider: Josue AIKEN Age/Sex: 58/F Location: [facility] Status: Signed Intake Vital Signs08/18/18 Body Mass Index (BMI) 34.4 08/18/18 Blood Pressure 130/85 H 08/18/18 Blood Pressure Location Lt brachial 08/18/18 Blood Pressure Position Sitting 08/18/18 Respiratory Rate 18 08/18/18 Pulse Rate 78 Intake Visit Reasons: SORE THROAT Chief Complaint: sore throat Bundle Shaker Required: No Accompanied by: self Is patient in pain?: No Allergies adhesive tape Adverse Reaction (Mild, Verified 08/18/18 16:59) itching Medications Ascorbic Acid [Vitamin C] 1,000 mg PO DAILY@0800 05/09/14 [History Confirmed 08/18/18] Calcium Carb/Vitamin D3/Vit K1 [Viactiv Soft Chew] 1 ea PO BID 05/09/14 [History Confirmed 08/18/18] Gabapentin [Neurontin] 300 mg PO QHS 05/09/14 [History Confirmed 08/18/18] Glucosa Santa 2Kcl/Chondroitin Santa [Glucosamine-Chondroitin Cap] 4 ea PO DAILY 05/09/14 [History Confirmed 08/18/18] Tizanidine HCl [Zanaflex] 4 mg PO QHS 11/14/14 [History Confirmed 08/18/18] acetaminophen 500 mg tablet 500 mg PO Q6H PRN 08/19/17 [History Confirmed 08/18/18] Hydrocodone Bitart/Apap 5-325 [[place] 5MG-325MG] 1 tab PO Q6H PRN PRN #1 tab 04/29/18 [Rx Confirmed 08/18/18] Rivaroxaban [Xarelto] 10 mg PO DAILY #1 tab 04/29/18 [Rx Confirmed 08/18/18] PFSH Medical History DDD (degenerative disc disease), lumbar (Chronic) Arthritis (Acute) Deficiency of internal organs (Acute) History of back pain (Acute) Knee pain, right (Acute) Polyneuropathy (Acute) Post hysterectomy menopause (Acute) Surgical History H/O arthroscopy of right knee (Acute) H/O hernia repair (Acute) H/O tubal ligation (Acute) History of bunionectomy of left great toe (Acute) History of surgical removal of ganglion cyst (Acute) Hx of rotator cuff surgery (Acute) S/P laparoscopic assisted vaginal hysterectomy (LAVH) (Acute) Total knee replacement status (Acute) Family History Mother Breast cancer Dementia Father Prostate cancer Hypertension Social History household members: spouse number of children: 2 current occupational status: employed 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 Patient states that the sore throat has worsened over the past 24 hours despite the use of several iwiw-bce-wtdstda medications. She denies any fever, chills, sweats. No nausea, vomiting, diarrhea. No shortness of breath or difficulty breathing. No other associated symptoms or alleviating/aggravating factors. ROS Const Constitutional: No fever(s), headache(s), anorexia, chills or abnormal sleep pattern ENT ENT: Positive for post nasal drip, sore throat, nasal congestion and nasal discharge; no headache(s) or ear pain Resp Respiratory: No shortness of breath Cardio Cardiology: No irregular heart rhythm or palpitations Gastro GI: No nausea/dyspepsia Neuro Neurology: No headache(s) or behavioral changes Psych Psychiatric: No abnormal sleep pattern, No behavioral changes Exam Const General: cooperative, healthy appearing HENMT Head: normal to inspection Ears: hearing grossly normal bilaterally, TM's normal bilaterally, EAC's normal Nose: external nose normal, nasal discharge clear Mouth: oral mucosae normal Throat: abnormal tonsil bilaterally Resp Effort AND Inspection: normal respiratory effort Auscultation: Bilateral: Clear to Auscultation Cardio Palpation: normal PMI Rate: regular rate Rhythm: regular rhythm Neuro General: CN's II-XI intact bilaterally, alert Psych Appearance: grossly normal Mental Status: mental status grossly normal Results BMSRAPIDSTREPA Office Rapid Strep A Negative Last Edit by Holli Lemus on 08/18/18 17:16 Assessment AND Plan Problems 1. Acute pharyngitis, unspecified etiology J02.9 Plan Negative rapid strep in the office today and patient advised we will send the swab off for culture and notify her of any positive results. Patient advised to increase fluids as well as rest and to use ibuprofen or Tylenol as needed for pain. She is to follow-up with her PCP in 5-7 days if no better sooner if worse. Advised of potential red flags and when appropriate to report to the ED. Patient verbalized understanding and agreement with all the above. Orders Orders: Plan Detail Goals Decrease radiculopathy Decrease pain and increase ROM Barriers Work requirements Coding Level of Care Code Off vis,est,level 3 Diagnoses Acute pharyngitis, unspecified etiology J02.9 Pharyngitis/tonsillitis etiology: unspecified etiology 08/18/18 0151 <Electronically signed by Josue AIKEN> Date Josue Barnes Signature: Date (if applicable) CC: RE-EVALUATION - PT (1) Observed: 08/16/2018 Status: F Source: JUNIOR 2:58 PM [facility] REPOSIT[facility] [address] [facility] [address] [place] [address] Fax REEVALUATION / MEDICARE RECERTIFICATION PHYSICAL THERAPY MR#: [id number] Acct: [id number] Name: DEE DUFFY Rep #: [id number] : 1960 58 From: Peterson Marte PT, ATC Referring Dr.: Maggy Graham DPM Status: REG RCR Insurance: [facility] [employer] SELF PAY INSURANCE Maggy Graham DPM, It has been my pleasure to treat DEE DUFFY over the last 10 visits for S/P R foot surgery. Please see the progress note below for an update on the physical therapy plan of care! Subjective: Pt feels like she is gradually getting better Objective/Function: R ankle pain ranges from 1/10-5/10. R ankle DF ROM: 0 degrees. R ankle MMT: 4-/5 throughout. Pt is progressing well toward Rx goals Plan Plan: Attempt to get 12 more PT visits for R LE strengthening Goals Goal 1:: Decrease R foot pain x 50% to aid with standing tolerance Goal Time Frame: 6-8 Weeks Goal Progress: Progressing Goal 2:: Increase R ankle DF ROM x 20 degrees to aid restoring a normalized gait pattern Goal Time Frame: 6-8 Weeks Goal Progress: Progressing Goal 3:: Increase R ankle strength x 1 grade to aid with RTW Goal Time Frame: 6-8 Weeks Goal Progress: Progressing Goal 4:: I with HEP Goal Time Frame: 6-8 Weeks Goal Progress: Progressing Anticipated Interventions Patient/Client Instruction: Educate patient on: Condition, Plan of Care For the Purpose of:: To improve self management Therapeutic Exercise to Include: Strength training, Endurance training, Balance training, Flexibilty training, Gait and locomotor training, Active ROM For the Purpose of:: To decrease pain, To increase ROM, To improve muscle performance and motor function Cryotherapy (ice pack, ice massage): Yes For the Purpose of:: To decrease pain Please do not hesitate to contact me at [phone] by phone or if you have questions or concerns regarding this new plan of care! Sincerely, Peterson Marte PT, <Electronically signed by Peterson Marte PT, ATC> 08/16/18 0413 CC: Ari Raymond MD; Maggy Graham DPM [facility] Signed For Medicare only, by signing this I certify the plan of care. Physicians Signature Date INITAL EVALUATION (1) Observed: 07/17/2018 Status: F Source: [place] He PT 4:05 PM [facility] REPOSITORY [facility] [address] [place] [address]. [address] [place] [address] Fax REHABILITATION SERVICES INITIAL EVALUATION MR#: [id number] Acct: [id number] Name: DEE DUFFY Rep #: [id number] : 1960 58 From: Peterson Marte PT, ATC Referring DrAlisha: Maggy Graham DPM Status: REG RCR Insurance: [facility] [employer] SELF PAY INSURANCE Patient's Visit Information DEE DUFFY is a 58 year old F referred to Physical Therapy by Maggy Graham DPM with a diagnosis of S/P R foot surgery. Date of Evaluation: 07/17/18 Physical Therapist: Peterson Marte PT, - Visit Plan Frequency: 2x /Week Duration: 2 Months Plan: R ankle stretching and strengthening, balance and proprio, PROM/mobs, bike, and HEP - Subjective Subjective: DOS: 04/28/18. Pt reports she had ankle pain for over 2 years. Pt reports her arch had collapsed, so she had to have it repaired. She also had a bunyonectomy. Pt was NWB'ing for 6 weeks, then 30% WBing for 2 weeks, then 70% until 3 weeks ago. Pt reports 1 week ago, she was told to begin 100%. Pt ambulates in a cam boot at this time. Pt reports she still gets increased pain with wb'ing activity. Pt is glad to have had her surgery at this time as the pain is significantly less than prior to surgery. Pt reports mild numbness still in R foot surrounding the incision. Pt reports no sleep difficulty secondary to pain. 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 1/10 pain while at rest, 6/10 - Pain R foot Pain Intensity (Out of 10): 1 Pain Intensity Range: 6 - Objective Neuro: B LE sensation is WNL to light touch throughout dermatome pattern. Girth at malleolus line: L ankle 26 cm, R ankle 27 cm. Palpation: Incisions are healed. No obvious signs of infection. ROM: L ankle DF= 5, PF= 65. R ankle DF= -8, PF= 35. MMT: L foot 5/5 throughout, R foot 3+/5 and painful - Goals Goal 1:: Decrease R foot pain x 50% to aid with standing tolerance Goal Time Frame: 6-8 Weeks Goal 2:: Increase R ankle DF ROM x 20 degrees to aid restoring a normalized gait pattern Goal Time Frame: 6-8 Weeks Goal 3:: Increase R ankle strength x 1 grade to aid with RTW Goal Time Frame: 6-8 Weeks Goal 4:: I with HEP Goal Time Frame: 6-8 Weeks - Rehabilitation Potential Physical Therapy Diagnosis: R foot pain, weakness, and limited ROM secondary to R foot surgery Rehabilitation Potential: Good - Anticipated Interventions Patient/Client Instruction: Educate patient on: Condition, Plan of Care For the Purpose of:: To improve self management Therapeutic Exercise to Include: Strength training, Endurance training, Balance training, Flexibilty training, Gait and locomotor training, Active ROM For the Purpose of:: To decrease pain, To increase ROM, To improve muscle performance and motor function Cryotherapy (ice pack, ice massage): Yes For the Purpose of:: To decrease pain Thank you for the opportunity to evaluate your patient. For Medicare and Medicare HMO plans, please review the plan of care and approve it. It will need to be FAXED BACK to us at [phone] for Medicare purposes. Please let me know if there are questions or concerns regarding this plan of care. Physician Signature: Date: <Electronically signed by Peterson Marte PT, ATC> 07/17/18 1605 CC: Ari Raymond MD; Maggy Graham DPM [facility] Signed For Medicare only, by signing this I certify the plan of care. Physicians Signature Date OPERATIVE REPORT Observed: 05/08/2018 Status: F Source: JUNIOR 10:28 PM [facility] REPOSITORY [facility] Medical Records Department [address] [place] [address] Operative Report 04/28/18 1355 MR#: [id number] Acct: [id number] Name: DEE DUFFY Rep #: [id number] : 1960 57 From: Maggy Graham DPM PCP: Ari Raymond MD Status: DIS NADIR Y Location: DE3 [id number] Problem List (1) Right foot pain Status: Chronic (2) Hallux valgus (acquired), right foot Status: Chronic (3) Pes planus of right foot Status: Chronic (4) Gastrocnemius equinus of right lower extremity Status: Chronic Report of Operation Date of Procedure: 04/28/18 - Charge Attendant: Beti Brooks PGY3. Surgeon: Maggy Graham DPM Pre-Operative Diagnosis: pes planus symptomatic, right. gastrocnemius equinus, right. hallux valgus, right Post-Operative Diagnosis: pes planus symptomatic, right. gastrocnemius equinus, right. hallux valgus, right Surgery/Procedure Performed:: gastrocnemius open recession, right. sergey calcaneus osteotomy with graft, right. flexor digitorum longus tendon transfer with plication to posterior tibialis tendon, right. lapidus bunionectomy with internal fixation, right Description of Surgical Findings:: Hemostasis: Well-padded pneumatic right thigh tourniquet, 300 mmHg Materials: 2-0 Vicryl, 3-0 Vicryl, 4-0 nylon, 4.0 mm cannulated short threaded screw, 2 3.5 mm locking screws, 2 3.5 mm cortical screws, plantar Lapidus standard plate, 4.75 swivel lock Bio-Tenodesis screw, wang Biosync anatomic reconstructive wedge with porous titanium (8 mm) Complications: None denial management representative: none Type of Anesthesia:: General/Regional, Local - Preop: 4 cc of one-to-one mix of 1% lidocaine with epinephrine administered to gastrocnemius recession site, right lower extremity Postop: 13 cc total administered to the right lower extremity including saphenous and tibial nerve block and local infiltrative block to the lateral surgical site Specimen's removed: none Estimated Blood Loss (mL): <200 mL Description of Procedure: Indications: This is a 57-year-old female with significant past medical history of obesity, chronic back pain, and chronic pain with multiple orthopedic conditions who continues to complain of right foot pain that is affecting her daily work and daily activities. She is unable to bear weight and get through a regular work shift. She is failed conservative care including orthotics, physical therapy, stretching, cortisone injections, strengthening, pain medications, Wendy brace. She has progressive flattening of her foot with advanced bunion deformity. Most recently her pain is consistent with lateral impingement. She does have x-rays which demonstrated a severe increased intermetatarsal angle with prominent medial eminence of the first metatarsal head and lateral hallux deviation. There is also decreased calcaneal inclination angle, anterior displaced cyma line, increased Meary's angle and midtarsal breach. Her pain on palpation is over by the lateral sinus tarsi location and weightbearing stance to the plantar arch and medial foot. She did also have an MRI done and this demonstrated subtle tenosynovitis of the posterior tibial tendon, very mild bone edema consistent with lateral impingement and mild arthritis changes to the rearfoot. There is no talar dome lesion or advanced arthritis of the ankle noted on the MRI. She did have a diagnostic injection to the sinus tarsi which did not provide more than 20% relief. She did have a diagnostic injection to the tarsal tunnel around the tibial nerve and this did not provide relief to her medial foot symptoms. Her EMG nerve conduction study are also noted and she does have history of chronic back pain and this may also be contributing to her condition. Her planar dominance is in the transverse plane when she is evaluated with walking gait and in stance. Her preoperative clearance and history and physical from Dr. Raymond was reviewed. Her preoperative diagnostic data was also reviewed including labs, EKG, and chest xray. The preoperative indications, planned procedure, possible benefits, risks, complications, and anticipated healing time and management were discussed in detail with patient. She understands and elects to proceed with surgery at this time. She understands complications may include but are not limited to the following: Pain, swelling, scarring, nontender delayed healing, over or under correction, hardware failure, need for further surgery, allergic reactions, blood clots, loss of limb, function, life. I answered all of her questions. The informed surgical consent and surgical limb were signed. Procedure in detail: The patient was transferred to the operating room via cart and placed on the operating table in supine position. Final verification the patient, surgery, limb designation was performed via the timeout procedure. A bump was placed to allow good exposure to the lateral rear foot. Well-padded pneumatic thigh tourniquet was placed. General anesthesia was initiated by the anesthesia team. The right lower extremity was prepped and draped in the usual aseptic manner. Next her posterior leg flexibility was evaluated for equinus with the Silverskold test. She had improve ankle dorsiflexion with the knee flexed and the decision to perform a gastrocnemius recession was performed. I administered the preoperative local block with lidocaine with epinephrine to the gastrocnemius recession site. A 3 cm linear incision was about three cm distal to the medial head of the gastrocnemius muscle belly through the skin just medial to the leg midline. Care was taken at this point and throughout all of the procedures performed today to identify, protect, and retract all neurovascular structures. Blunt dissection was performed down to the fascial layer in which the aponeurosis was identified. Careful dissection was performed with tenotomy scissors to release just the gastrocnemius layer (Lauren technique). Ankle dorsiflexion was improved. This was copiously irrigated with normal saline. Deep closure was achieved with Vicryl. Next, an Esmarch bandage was used to exsanguinate the right lower extremity and the tourniquet was inflated at this time. Surgery proceeded in the following manner: Attention was next directed to the lateral aspect of the hindfoot in which a curvilinear incision was made to gain exposure to the anterior calcaneus to allow surgical correction. This incision was made through the skin and blunt dissection was performed down to the extensor digitorum brevis taking care to further identify protect and retract all neurovascular bundles at this time and throughout the remainder of the procedure. The anterior process of the calcaneus was identified in the extensor digitorum brevis muscle was reflected to gain good exposure as were the peroneal tendons. The calcaneal cuboid joint was identified with intraoperative fluoroscopy with a needle. Approximately 1.2 cm proximal to the joint, an osteotomy was made with a sagittal saw and osteotome. A small joint distractor was used to open this site to find the appropriate correction needed in multiple planes. An Arthrex biosync trapezoid shaped wedge was placed according to standard protocol (8mm). It is noted that the cyma line was reduced and full talar head coverage was achieved. The subtalar joint moved freely. The wound was irrigated and deep closure was performed over this site with the extensor digitorum brevis muscle belly tagged over the wedge to the anterior calcaneus. Attention was next directed to the medial aspect of the foot in which a curvilinear incision was made over the posterior tibialis tendon also extending distally to the navicular attachment site and further distal to the proximal phalanx of the hallux in preparation for the later bunionectomy procedure. No hypertrophy of the navicular was noted. The flexor digitorum longus tendon was carefully dissected and was released as distal as possible taking care to identify and preserve neurovascular structures in this area. This tendon (FDL) was viable and thus was selected for tendon transfer. The Bio-Tenodesis screw was next used to apply the flexor digitorum tendon transfer into the navicular utilizing proper technique and with the foot in a plantarflexed and inverted position with zero tension. Anastomosis was next performed between this flexor digitorum longus tendon and the posterior tibialis tendon at this site with size 0 FiberWire. Deep closure was next performed with Vicryl to provide additional stability. The subtalar joint was placed in neutral and her foot was evaluated for forefoot varus in which this was not identified. The medial column was evaluated and a first metatarsal cuneiform arthrodesis with bunion correction to correct her full deformity was performed next. Attention was next directed towards the bunion deformity. The medial incision was extended distally in the interface between the abductor hallucis muscle belly and plantar first metatarsal was identified and carefully dissected. The first metatarsocuneiform articulation was identified clinically and confirmed with intraoperative fluoroscopy. A 15 blade, osteotomes, curettes, and sagittal saw was used to denude the articular surface down to bleeding healthy subchondral bone in the joint was mobilized to allow for correction. A K wire and tenaculum were placed with the first metatarsal now with varus rotation correction achieved. Sesamoid reduction, decreased first intermetatarsal angle, and [id number] approximation was confirmed with intraoperative fluoroscopy. Cancellous bone chips were placed into the arthrodesis site and temporary fixation across the site with K wires was placed. A plantar Arthrex Lapidus plate was fashioned and temporary held in place with wires and BB taks. The tourniquet was deflated and brisk capillary refill time was noted to all digits of the right foot. There was no pulsatile bleeding noted and pressure was applied to maintain hemostasis. The tourniquet was deflated for an appropriate amount of time to allow tissue reperfusion for over 20 minutes. Reinflation was later performed after Esmarch reexsanguination. The plate was secured distally prior to compression screw application. Care was taken to remove all temporary fixation while the compression was applied. Lastly the plate was secured proximally and the unit was clinically and radiographically stressed and appeared to be stable as one solid unit. The reduction was maintained and all screws and hardware placement maintained the proper and desired trajectory. Next, attention was directed to the first metatarsophalangeal joint in which careful capsular dissection was performed. A sagittal saw was used to resect the hypertrophic medial prominent eminence taking care to preserve the sagittal sulcus. Additional cheilectomy was performed dorsally to allow improved sagittal plane motion. The joint was smooth and gliding. A McGlamry elevator was used to mobilize as slightly adhesed lateral sesamoid. This was irrigated with copious normal saline. No first metatarsal head osteotomy was deemed necessary nor there any first metatarsal head osteochondral defect. Capsular closure was next achieved with 2-0 Vicryl taking care to maintain the desired bony correction and a capsulorrhaphy was performed with 2-0 Vicryl for reapproximation. Additional deep closure was performed to all sites utilizing 2-0 and 3-0 Vicryl. The tourniquet was again deflated at this time and brisk capillary refill time was noted to all digits of the foot. There was no pulsatile bleeding. The skin was reapproximated 4-0 nylon utilizing horizontal mattress and simple suture techniques all sites. Next, the patient was evaluated with final intraoperative fluoroscopy demonstrating desired position of the Wang osteotomy wedge, bunion correction, and overall foot position. A postoperative injection was administered. A dressing consisting of Betadine soaked Adaptic, gauze, abdominal pads, Kerlix, webril were applied. A well- padded posterior mold was placed with the foot in a neutral slightly inverted and plantarflexed position to protect the tendon transfer site. After procedure: The patient tolerated the procedure and anesthesia well was transported to the PACU with vital signs stable and vascular status intact to the right foot. Postoperative x-rays were obtained and reviewed as noted previously. She was advised to maintain strict nonweightbearing status to the right lower extremity use crutches for assistance. She did obtain a popliteal regional block for pain control. Her family is concerned about her returning home due to pain when the block wears off and it is noted she has had extensive work performed today and she does have history of chronic pain issues. She will be monitored under observation status until tomorrow morning to assist with pain control. Postoperative orders were entered electronically. She will resume DVT prophylaxis medication tomorrow. She understands her surgical and postoperative risks. To keep her dressing clean, dry, and intact until follow-up next week. I will follow her closely in house. She is advised to ice and elevate for pain and inflammation management. Additional postoperative orders were entered electronically. Maggy Graham DPM, [facility] [place] - Complications None 05/08/18 0033 <Electronically signed by Maggy Graham DPM> Date Maggy Graham DPM CC: Ari Raymond MD; Maggy Graham DPM Signed DISCHARGE SUMMARY Observed: 04/29/2018 Status: F Source: UBALDO 10:11 AM [facility] REPOSITORY [facility] Medical Records Department [address] [place] [address] Discharge Summary 04/29/18 1008 MR#: [id number] Acct: [id number] Name: DEE DUFFY Rep #: [id number] : 1960 57 From: Shawn Louise DO PCP: Ari Raymond MD Status: ADM NADIR Y Location: [place] [address] Discharge Date and Diagnosis Date of Admission: 04/28/18 Date of Discharge: 04/29/18 - Secondary Discharge Diagnosis Chronic Problems (Last Reviewed 04/28/18 @ 16:07 by Shawn Louise DO) Right foot pain (Chronic) Hallux valgus (acquired), right foot (Chronic) Pes planus of right foot (Chronic) Gastrocnemius equinus of right lower extremity (Chronic) DDD (degenerative disc disease), lumbar (Chronic) Arthritis (Chronic) Sciatica (Chronic) Obesity (BMI 30-39.9) (Chronic) Hospital Course and Treatment Imaging Results: Clinical Impression(s) from Imaging Studies Foot X-Ray 04/28/18 07:30 IMPRESSION: 1. Surgical fusion with metal hardware across the first tarsometatarsal articulation. 2. Mild hallux valgus deformity. 3. Old healed fracture deformity at the midshaft of the right second metatarsal. Electronically Signed: Bhavesh Jaramillo MD at 19:33 EDT , Service support , Foot X-Ray 04/28/18 13:55 IMPRESSION: Status post fusion at the first tarsometatarsal joint as well as osteotomy along the anterior aspect of the calcaneus with insertion of a metallic prosthesis. Electronically Signed: Juancarlos Garcia MD at 14:14 EDT Tel [phone], Service support , Gladys Operations: - - gastrocnemius open recession, right. sergey calcaneus osteotomy with graft, right. flexor digitorum longus tendon transfer with plication to posterior tibialis tendon, right. lapidus bunionectomy with internal fixation, right Procedures: None Summary of Care Provided: The patient is a 57 year old F presents after having surgery for gastrocnemius open recession, right. sergey calcaneus osteotomy with graft, right. flexor digitorum longus tendon transfer with plication to posterior tibialis tendon, right. lapidus bunionectomy with internal fixation, right. Patient was brought in for just pain management to ensure that her pain did not get out of control at home. Patient had a nerve block and its wearing off this morning but is otherwise feeling well. Patient is anxious to go home. Patient already has prescription for Ladonia as well as Xarelto for DVT prophylaxis prescribed by Dr. Graham. Patient will be nonweightbearing to her right leg. Patient will follow-up with podiatry on the . Physical exam Vital Signs Height 1.65 m Weight: 104.8 kg Weight in Pounds 231.0 lbs Pulse Ox 94 No acute distress and afebrile. Head is atraumatic and normocephalic. Patient able to move all extremities spontaneously. [] Discharge Diet: No Restrictions Discharge Activity: May not drive while taking narcotic pain medications., - Weight Bearing Status: No weight bearing Keep extremity elevated above heart level: Right Leg Call your doctor if your incision/area has: Continuous Slow Oozing, Sudden Increased Bleeding, Increased Pain/ Swelling, Increased Redness, Foul Smelling Discharge, Swelling at the incision site Call your doctor if you observe: Fever of 101 or Higher, Coldness, Increased Pain, Numbness or Tingling, Chest pain, Calf discomfort, Uncontrolled pain Cleanse incision/area with: Keep Dressing Clean AND Dry Home Medications: Medications to take at Discharge Ascorbic Acid [Vitamin C] 1,000 mg PO DAILY@0800 05/09/14 Calcium Carb/Vitamin D3/Vit K1 [Viactiv Soft Chew] 1 ea PO BID 05/09/14 Gabapentin [Neurontin] 300 mg PO QHS 05/09/14 Glucosa Santa 2Kcl/Chondroitin Santa [Glucosamine-Chondroitin Cap] 4 ea PO DAILY 05/09/14 Tizanidine HCl [Zanaflex] 4 mg PO QHS 11/14/14 acetaminophen 500 mg tablet 500 mg PO Q6H PRN 08/19/17 Hydrocodone Bitart/Apap 5-325 [Ladonia 5MG-325MG] 1 tablet PO Q6H PRN PRN #1 tablet 04/29/18 Rivaroxaban [Xarelto] 10 mg PO DAILY #1 tablet 04/29/18 Following Prescrptions Were Given to Patient: Hydrocodone Bitart/Apap 5-325 [Lad[place] 5MG-325MG] 1 tablet PO Q6H PRN PRN #1 tablet PRN Reason: Pain Rivaroxaban [Xarelto] 10 mg PO DAILY #1 tablet Primary Care Physician: Waldemar Raymond MD [Primary Care Provider] - Within 2 Weeks Please Follow Up With: Maggy Graham DPM When: 05/05/18 Disposition: Home Minutes spent on discharge:: 28 Patient Condition:: Good Medical Necessity - Tobacco Use Smoking Status: Former smoker Meaningful Use Info Meaningful Use Diagnoses (Choose all that apply): None applicable Code Visit OBSV E AND M: 81216 Observation care discharge 04/29/18 1011 <Electronically signed by Shawn Louise DO> Date Shawn Samaniegoigner Signature (if applicable): Date CC: Ari Raymond MD; Shawn Louise DO; Maggy Graham DPM Signed DISCHARGE INSTRUCTION Observed: 04/29/2018 Status: F Source: UBALDO 10:08 AM [facility] REPOSITORY [facility] Medical Records Department [address] [place] [address] Instructions for Home/Discharge Instructions 04/29/18 1007 MR#: [id number] Acct: [id number] Name: DEE DUFFY Rep #: [id number] : 1960 57 From: Shawn Louise DO PCP: Ari Raymond MD Status: ADM NADIR - Discharge Diagnoses Current Active Problems: Current Active and Chronic Problems (Last Reviewed 04/28/18 @ 16:07 by Shawn Louise DO) Right foot pain (Chronic) Hallux valgus (acquired), right foot (Chronic) Pes planus of right foot (Chronic) Gastrocnemius equinus of right lower extremity (Chronic) You will use the following diet at home:: No restrictions Your food should be the consistency of: Regular Your liquids should be the consistency of: Regular/Thin Discharge Activity: May not drive while taking narcotic pain medications., - Weight Bearing Status: No weight bearing Keep extremity elevated above heart level: Right Leg Call your doctor if your incision/area has: Continuous Slow Oozing, Sudden Increased Bleeding, Increased Pain/ Swelling, Increased Redness, Foul Smelling Discharge, Swelling at the incision site Call your doctor if you observe: Fever of 101 or Higher, Coldness, Increased Pain, Numbness or Tingling, Chest pain, Calf discomfort, Uncontrolled pain Cleanse incision/area with: Keep Dressing Clean AND Dry Allergies/Adverse Reactions: Allergies adhesive tape Adverse Reaction (Mild, Verified 04/28/18 05:49) itching Medications to take at Discharge Ascorbic Acid [Vitamin C] 1,000 mg PO DAILY@0800 05/09/14 Calcium Carb/Vitamin D3/Vit K1 [Viactiv Soft Chew] 1 ea PO BID 05/09/14 Gabapentin [Neurontin] 300 mg PO QHS 05/09/14 Glucosa Santa 2Kcl/Chondroitin Santa [Glucosamine-Chondroitin Cap] 4 ea PO DAILY 05/09/14 Tizanidine HCl [Zanaflex] 4 mg PO QHS 11/14/14 acetaminophen 500 mg tablet 500 mg PO Q6H PRN 08/19/17 Hydrocodone Bitart/Apap 5-325 [Ladonia 5MG-325MG] 1 tablet PO Q6H PRN PRN #1 tablet 04/29/18 Rivaroxaban [Xarelto] 10 mg PO DAILY #1 tablet 04/29/18 The following prescriptions were given: Hydrocodone Bitart/Apap 5-325 [Ladonia 5MG-325MG] 1 tablet PO Q6H PRN PRN #1 tablet PRN Reason: Pain Rivaroxaban [Xarelto] 10 mg PO DAILY #1 tablet Primary Care Physician: Waldemar Raymond MD [Primary Care Provider] - Within 2 Weeks Test Results: Test results from this visit will be discussed in further detail at your follow-up appointment, if applicable. Please Follow Up With: Maggy Graham DPM When: 05/05/18 Proposed Discharge Date: 04/29/18 04/29/18 1008 <Electronically signed by Shawn Louise DO> Date Shawn Louise DO CC: Ari Raymond MD; Maggy Graham DPM HISTORY AND PHYSICAL Observed: 04/28/2018 Status: F Source: JUNIOR EXAM 4:10 PM [facility] REPOSITORY [facility] Medical Records Department [address] [place] [id number] History and Physical 04/28/18 1606 MR#: [id number] Acct: [id number] Name: DEE DUFFY Rep #: [id number] : 1960 57 From: Shawn Louise DO PCP: Ari Raymond MD Status: [facility] Y Location[place] [facility] [place] [id number] History of Present Illness Date of Admission: 04/28/18 Chief Complaint: status post gastrocnemius open recession, right. sergey calcaneus osteotomy with graft, right. flexor digitorum longus tendon transfer with plication to posterior tibialis tendon, right. lapidus bunionectomy with internal fixation, right The patient is a 57 year old F who underwent astrocnemius open recession, right. sergey calcaneus osteotomy with graft, right. flexor digitorum longus tendon transfer with plication to posterior tibialis tendon, right. lapidus bunionectomy with internal fixation, right. Patient groggy and had a nerve blocks as feeling in her right leg at this time. Denies any new complaints. [] Past Medical History Past Medical History (Chronic Problems): Chronic Problems (Last Reviewed 04/28/18 @ 16:07 by Shawn Louise DO) Right foot pain (Chronic) Hallux valgus (acquired), right foot (Chronic) Pes planus of right foot (Chronic) Gastrocnemius equinus of right lower extremity (Chronic) DDD (degenerative disc disease), lumbar (Chronic) Arthritis (Chronic) Sciatica (Chronic) Obesity (BMI 30-39.9) (Chronic) Medical History: Medical History (Last Reviewed 04/28/18 @ 16:07 by Shawn Louise DO) DDD (degenerative disc disease), lumbar (Chronic) M51.36 Arthritis M19.90 Deficiency of internal organs Z87.898 History of back pain Z87.39 Knee pain, right M25.561 Polyneuropathy G62.9 Post hysterectomy menopause E89.40, Z90.710 Allergies adhesive tape Adverse Reaction (Mild, Verified 04/28/18 05:49) itching Home Medications: Ambulatory Orders Medication Instructions Recorded Ascorbic Acid [Vitamin C] 1,000 mg PO DAILY@0800 05/09/14 Calcium Carb/Vitamin D3/Vit K1 1 ea PO BID 05/09/14 Surgical History: Surgical History (Last Reviewed 04/28/18 @ 16:07 by Shawn Louise DO) H/O arthroscopy of right knee Z98.890 H/O hernia repair Z98.890, Z87.19 H/O tubal ligation Z98.51 History of bunionectomy of left great toe Z98.890 History of surgical removal of ganglion cyst Z98.890 Hx of rotator cuff surgery Z98.890 S/P laparoscopic assisted vaginal hysterectomy (LAVH) Z90.710 Total knee replacement status Z96.659 Surgical History: hysterectomy, rotator cuff repair Smoking Status: Former smoker - *Family History Maternal Family History: Family History (Last Reviewed 04/28/18 @ 16:07 by Shawn Louise DO) Mother Breast cancer Dementia Father Prostate cancer Hypertension Review of Systems Constitutional: Denies: Anorexia, Chills, Fever Eyes: Denies: Blurred vision, Double vision HEENT: Denies: Head Aches, Sinus Congestion, Sinus Drainage Cardiovascular: Denies: Chest Pain, Palpitations Respiratory: Denies: Cough, Shortness of breath at rest, Sputum production Gastrointestinal: Denies: Abdominal Pain, Nausea, Vomiting Genitourinary: Denies: Dysuria Musculoskeletal: Denies: Joint Pain, Joint Tenderness Skin: Denies: Rash, Wounds Neurological: Denies: Numbness, Tingling, Focal weakness Psychiatric: Denies: Anxiety, Depression Hematologic/ Lymphatic: Denies: Easy Bruising, Easy Bleeding, Hx of blood clot Comment: Groggy. All review of systems are negative except as mentioned in the history of present illness and the other review of systems. VTE Information - Inpt Only VTE Present on Admission: No VTE Pharm Prophylaxis ordered?: Yes - Physical Exam General: Alert, Cooperative, No apparent distress HEENT: Atraumatic, Normocephalic Oral: Moist Mucosa, No Gingival or Mucosal Lesions/ Ulcerations Neck: No Nodes, Thyroid Normal Size and Texture Lungs: Clear to auscultation, Normal air movement, No rhonchi, No wheeze Cardiovascular: Regular rate, Regular Rhythm, Normal S1, Normal S2, No murmurs Abdomen: Bowel Sounds Present, Soft, Non Tender, Non-Distended, No Hepato-splenomegaly Extremities: No edema, No Calf Tenderness, - - Right lower extremity in a splint and Neftali wrap, did not remove. Skin: No rashes, No breakdown Neurological: - - Not able to move the digits of her left foot at this time Psych/Mental Status: Normal Affect, Appropriate Vital Signs Temp Pulse Resp BP Pulse Ox 36.3 C L 74 18 129/84 H 95 04/28/18 14:35 04/28/18 14:35 04/28/18 14:35 04/28/18 14:35 04/28/18 14:35 Oxygen Flow Rate (L/min) 2 Oxygen Delivery Method Room Air Weight: 104.8 kg Body Mass Index (BMI) 38.4 Intake and Output for Last 24 Hours Intake Total 2500 / 2500 Balance 2500 / 2500 Assessment/Plan All Active Problems (Last Reviewed 04/28/18 @ 16:07 by Shawn Louise DO) Sinusitis (Acute) Gastroenteritis (Acute) Pharyngitis, acute (Acute) Right calf pain (Acute) Osteoarthritis (Acute) Sciatica (Acute) Segmental and somatic dysfunction of cervical region (Acute) Segmental and somatic dysfunction of thoracic region (Acute) Segmental and somatic dysfunction of lumbar region (Acute) Status post bilateral knee replacements (Acute) 1. Status postastrocnemius open recession, right. sergey calcaneus osteotomy with graft, right. flexor digitorum longus tendon transfer with plication to posterior tibialis tendon, right. lapidus bunionectomy with internal fixation, right * Plan is to bring the patient under observation status to ensure adequate pain control given the extensive surgery. * Patient will have pain medications available and have been ordered * Podiatry will follow and help direct care 2. DVT prophylaxis: Lovenox Code Visit OBSV E AND M: 25513 Initial observation care L2 04/28/18 1610 <Electronically signed by Shawn Louise DO> Date Shawn Louise DO Cosigner Signature: Date (if applicable) CC: Ari Raymond MD; Shawn Louise DO Signed DISCHARGE INSTRUCTION Observed: 04/28/2018 Status: F Source: JUNIOR 1:49 PM [facility] REPOSITORY [facility] Medical Records Department [address] [place] [address] Instructions for Home/Discharge Instructions 04/28/18 1347 MR#: [id number] Acct: [id number] Name: DEE DUFFY Rep #: [id number] : 1960 57 From: Maggy Graham DPM PCP: Ari Raymond MD [place] [facility] [place] Diet: No Restrictions Discharge Activity: May not drive while taking narcotic pain medications. Weight Bearing Status: No weight bearing Keep extremity elevated above heart level: Right Leg Call your doctor if your incision/area has: Continuous Slow Oozing, Sudden Increased Bleeding, Increased Pain/ Swelling, Increased Redness, Foul Smelling Discharge, Swelling at the incision site Call your doctor if you observe: Fever of 101 or Higher, Coldness, Increased Pain, Numbness or Tingling, Chest pain, Calf discomfort, Uncontrolled pain Cleanse incision/area with: Keep Dressing Clean AND Dry Allergies/Adverse Reactions: Allergies adhesive tape Adverse Reaction (Mild, Verified 04/28/18 05:49) itching Medications to take at Discharge Ascorbic Acid [Vitamin C] 1,000 mg PO DAILY@0800 05/09/14 Calcium Carb/Vitamin D3/Vit K1 [Viactiv Soft Chew] 1 ea PO BID 05/09/14 Celecoxib [Celebrex] 200 mg PO DAILY 05/09/14 Gabapentin [Neurontin] 300 mg PO QHS 05/09/14 Glucosa Santa 2Kcl/Chondroitin Santa [Glucosamine-Chondroitin Cap] 4 ea PO DAILY 05/09/14 Tizanidine HCl [Zanaflex] 4 mg PO QHS 11/14/14 acetaminophen 500 mg tablet 500 mg PO Q6H PRN 08/19/17 traMADol [Ultram (G)] 50 mg PO Q6H PRN PRN 04/24/18 Primary Care Physician: Waldemar Raymond MD [Primary Care Provider] - Test Results: Test results from this visit will be discussed in further detail at your follow-up appointment, if applicable. Please Follow Up With: Maggy Graham DPM 04/28/18 1349 <Electronically signed by Maggy Graham DPM> Date Maggy Graham DPM CC: Ari Raymond MD FOOT MIN 3 VIEWS Observed: 04/28/2018 Status: F Source: JUNIOR 1:47 PM [facility] REPOSITORY [facility] Imaging Services [address] [place] [address] Foot min 3 Views MR#: [id number] Acct: [id number] Name: DEE DUFFY Rep #: [id number] : 1960 F 57 From: Juancarlos Garcia MD PCP: Ari Raymond MD Status: [facility] Study: Foot min 3 Views Date of Exam: 04/28/18 Exam# [id number] Ordering Dr: Maggy Graham DPM STUDY: X-RAY - RIGHT FOOT CLINICAL: Female, 57 years old. Postoperative evaluation. TECHNIQUE: 3 view(s) of the foot. COMPARISON: None. FINDINGS: There is a plantar calcaneal spur. There is evidence of fusion at the first tarsal metatarsal joint. There has been partial resection of the anterior aspect of the calcaneus with the metallic prosthetic insertion. Healed fracture through the midportion of the second metatarsal. There is degenerative arthrosis of the metatarsophalangeal joint of the hallux with a hallux valgus deformity. Normal tibial and fibular sesamoid bones. Normal interphalangeal joint of the great toe. Normal phalanges of the great toe. Normal second through fifth metatarsophalangeal joints. Normal interphalangeal joints and phalanges of the lesser toes. Postoperative soft tissue changes. RAD/Foot min 3 Views IMPRESSION: Status post fusion at the first tarsometatarsal joint as well as osteotomy along the anterior aspect of the calcaneus with insertion of a metallic prosthesis. Electronically Signed: Juancarlos Garcia MD at 14:14 EDT Tel [phone], Service support , CC: Ari Raymond MD; Maggy Graham DPM Recruitment And Outreach Assistant: Signed FOOT 2 VIEWS Observed: 04/28/2018 Status: F Source: JUNIOR 12:11 AM [facility] Imaging Services [address] [place] [address] Foot 2 Views MR#: [id number] Acct: [id number] Name: DEE DUFFY Rep #: [id number] : 1960 F 57 From: Alan Jaramillo MD PCP: Ari Raymond MD Status: ADM [facility]IR Study: Foot 2 Views Date of Exam: 04/28/18 Exam# [id number] Ordering Dr: Maggy Graham DPM STUDY: X-RAY - RIGHT FOOT CLINICAL: Female, 57 years old. Bunionectomy, calcaneus osteotomy, flexor digitorum longus tendon transfer. TECHNIQUE: Fluoroscopic assistance was provided to Dr. Graham. 9 intraprocedural fluoroscopic spot view(s) of the foot are submitted. FLUOROSCOPY TIME: 178.2 seconds COMPARISON: None. FINDINGS: Images demonstrate surgical fusion across the first tarsometatarsal articulation. Anteromedial metal sideplate is secured by metal screws in both the medial navicular and diaphysis of the first metatarsal. An additional screw is directed in oblique fashion over a guide pin through the plate across the base of the first metatarsal into the medial cuneiform. A hallux valgus deformity as well as old healed fracture deformity of the midshaft of the second metatarsal are also noted. RAD/Foot 2 Views IMPRESSION: 1. Surgical fusion with metal hardware across the first tarsometatarsal articulation. 2. Mild hallux valgus deformity. 3. Old healed fracture deformity at the midshaft of the right second metatarsal. Electronically Signed: Bhavesh Jaramillo MD at 19:33 EDT , Service support , CC: Ari Raymond MD; Maggy Graham DPM Recruitment And Outreach Assistant: Signed CHEST PA AND LATERAL Observed: 04/20/2018 Status: F Source: JUNIOR 12:16 PM [facility] REPOSITORY [facility] Imaging Services [address] [place] [address] Chest PA and Lateral MR#: [id number] Acct: [id number] Name: DEE DUFFY Rep #: [id number] : 1960 F 57 From: Chu [place] DO PCP: Ari Raymond MD Status: REG CLI Study: Chest PA and Lateral Date of Exam: 04/20/18 Exam# [id number] Ordering Dr: Waldemar Raymond MD STUDY: X-RAY CHEST REASON FOR EXAM: Female, 57 years old. Pre-op TECHNIQUE: Frontal and lateral views COMPARISON: None. FINDINGS: The lungs are clear and expanded. There is no demonstrated pleural abnormality. Normal size heart. Normal mediastinum and cmailla. Normal visualized pulmonary arteries. Normal visualized aortic arch and descending thoracic aorta. Normal visualized thoracic spine. Normal visualized ribs, clavicles, and shoulders. There is no demonstrated abnormality of the visualized soft tissue structures of the upper abdomen. RAD/Chest PA and Lateral IMPRESSION: Normal x-ray examination of the chest. Electronically Signed: Chu [place] DO at 23:04 EDT Tel [phone], Service support , CC: Ari Raymond MD Recruitment And Outreach Assistant: Signed URINALYSIS, EMPLOYEE Collected: 04/10/2018 Status: F Source: JUNIOR 9:49 AM [facility] REPOSITORY TYPE CODE TESTS RESULT OUT OF RANGE REFERENCE UNITS LAB L400.3000 Yellow COLOR Normal Yellow LAB L400.3050 Clear Normal CLARITY Clear LAB L400.3200 Normal mg/dl Normal GLUCOSE, UR Normal LAB L400.3300 Negative mg/dL Normal BILIRUBIN URINE Negative LAB L400.3400 Negative mg/dl High 5 KETONE UR LAB L400.3465 1.002-1.030 Normal SP.GR. DIPSTX 1.020 LAB L400.3550 5.0 - 8.0 pH UR Normal 5.0 LAB L400.3600 Negative mg/dl PROT Normal DIPSTX Negative LAB L400.3700 Normal mg/dl Normal UROBILI Normal LAB L400.3750 Negative Normal NITRITE UR Negative LAB L400.3780 Negative /ul High 10 OCCULT BLOOD-UR LAB L400.3800 Negative /ul High LEUK 25 ESTERASE Performed By: #### L400.0100 #### [facility] [address] [place], [address] EMPLOYEE PROFILE Collected: 04/10/2018 Status: F Source: JUNIOR 9:49 AM [facility] REPOSITORY TYPE CODE TESTS RESULT OUT OF RANGE REFERENCE UNITS LAB L501.0100 74-106 mg/dL Normal GLU 85 Result Comment: Please note revised GLUCOSE reference range effective 2017. LAB L501.1000 7-18 mg/dL Normal BUN 18 LAB L501.1100 0.55-1.02 mg/dL Normal CREAT,SERUM 0.81 Result Comment: The validity of the calculated GFR AND GFRAA in patients over 70 years has not been determined. Clinical correlation is essential. LAB L501.1110 >60 mL/min Normal EST GFR 78 Result Comment: Non- GFR Calc LAB L501.1115 >60 mL/min Normal EST GFR - AA 94 Result Comment: GFR Calc LAB L501.1300 10-20 RATIO High BUN/CRE 22.2 LAB L501.1400 2.6-6.0 mg/dL Normal URIC 4.4 Result Comment: The drugs N-Acetylcysteine and Metamizole may falsely depress this assay. LAB L501.1500 6.4-8.2 g/dL Normal T PROT 7.5 LAB L501.1800 3.2-5.0 g/dL Normal ALB 4.0 LAB L501.1950 2.2-4.2 g/dL Normal GLOB 3.5 LAB L501.2000 0.9-2.4 RATIO Normal A/G 1.1 LAB L501.2200 8.5-10.1 mg/dL Normal CA 9.0 LAB L501.2300 2.5-4.9 mg/dL Normal PHOS 3.9 LAB L501.4100 15-37 U/L Normal AST 25 LAB L501.4305 45-117 U/L Normal ALK P 64 LAB L501.4405 13-56 U/L Normal ALT 26 LAB L501.4600 0.20-1.00 mg/dL High T BILI 1.30 LAB L501.4700 0.00-0.30 mg/dL Normal D BILI 0.23 LAB L501.4900 200 mg/dL High CHOL 220 Result Comment: <200 mg/dL Desirable 200-240 mg/dL Borderline >240 mg/dL High Risk LAB L501.5000 mg/dL Normal TRIG 69 Result Comment: The drugs N-Acetylcysteine and Metamizole may falsely depress this assay. Serum Triglycerides Reference Interval Normal <150 mg/dL Borderline high 150 - 199 mg/dL High 200 - 499 mg/dL Very High > or = 500 mg/dL LAB L501.5300 136-145 mmol/L Normal NA 145 LAB L501.5600 3.5-5.1 mmol/L Normal K 4.0 LAB L501.5900 98-107 mmol/L Normal CL 104 LAB L501.6100 21.0-32.0 mmol/L Normal CO2 31.0 LAB L501.6200 5-15 Normal GAP 10 LAB L501.6400 mg/dL Normal HDL 88 Result Comment: The drugs N-Acetylcysteine and Metamizole may falsely depress this assay. Reference Range HDL <40 mg/dL Low HDL Cholesterol HDL >or= 60 mg/dL High HDL Cholesterol LAB L501.6475 Normal CHOL:HDL 2.50 LAB L501.6500 0-130 mg/dL Normal LDL 118 LAB L501.6600 5-40 mg/dL Normal VLDL 14 LAB L504.2610 84-246 U/L Normal LDH 232 Performed By: #### L500.2900 #### [facility] [address] [place], [address] CBC, EMPLOYEE Collected: 04/10/2018 Status: F Source: JUNIOR 9:49 AM [facility] REPOSITORY TYPE CODE TESTS RESULT OUT OF RANGE REFERENCE UNITS LAB L100.1000 4.4-11.0 K/mm3 Low WBC 4.2 LAB L100.1200 4.2-5.4 M/mm3 Normal RBC 4.83 LAB L100.1300 12.0-15.0 g/dl Normal HGB 14.4 LAB L100.1400 37-47 % Normal HCT 43.2 LAB L100.1500 81-99 fL Normal MCV 89.4 LAB L100.1600 27.0-32.0 pg Normal MCH 29.8 LAB L100.1700 32-36 g/gl Normal MCHC 33.3 LAB L100.1810 11.6-14.6 % Normal RDW CV 12.8 LAB L100.1820 35.1-43.9 fl Normal RDW SD 41.5 LAB L100.1900 150-450 K/mm3 Normal PLT 220 LAB L100.2000 6.2-12.0 fl Normal MPV 9.6 LAB L100.2110 47-70 % Normal NEUT% 53.7 LAB L100.2210 19-41 % Normal LY% 35.5 LAB L100.2310 0-10 % Normal MONO% 8.5 LAB L100.2410 0-5 % Normal EO% 1.4 LAB L100.2510 0-1 % Normal BASO% 0.9 LAB L100.2620 2.0-7.7 X10 3/uL Normal Absolute Neut 2.3 LAB L100.2720 0.83-4.51 X10 3/ul Normal Absolute Lymph 1.50 Performed By: #### L100.0200 #### [facility] [address] [facility] [place], [address] NICOTINE URINE DRUG Collected: 04/10/2018 Status: F Source: UBALDO SCREEN 9:49 AM [facility] REPOSITORY TYPE CODE TESTS RESULT OUT OF RANGE REFERENCE UNITS LAB L505.6250 TO BE Normal CONFIRMED Result Comment: CONFIRMATORY TESTING FOR ALL POSITIVE URINE DRUG SCREEN RESULTS WILL ONLY BE SENT OUT UPON PHYSICIAN ORDER. The results of Urine Drug Screen methods provide only preliminary analytical test results. A more specific alternate chemical method must be used in order to obtain a confirmed analytical result. Gas chromatography/mass spectrometery (GC/MS) is the preferred confirmatory method. Clinical consideration and professional judgement should be applied to any drug of abuse test result, particularly when preliminary positive results are used. LAB L505.6270 <200 ng/mL Normal COT DRG Negative SCREEN Result Comment: Cotinine is the first-stage metabolite of Nicotine. Performed By: #### L505.6240 #### [facility] [address] [place], [address] DOWNTIME REPORT Observed: 02/23/2018 Status: F Source: UBALDO 12:00 PM [facility] REPOSITORY [facility] Medical Records Department [address] [place] [address] Downtime Report MR#: [id number] Acct: [id number] Name: DEE DUFFY Rep #: [id number] : 1960 57 From: Aamir Zuniga PCP: Ari Raymond MD Status: REG RCR This patient was seen during an EMR downtime February 06, 2018 - February 13, 2018. This patient may have a combination of paper and electronic documentation or all paper documentation. All documentation is viewable within the e-chart portion of [employer] for each patient visit. LOWER EXT JOINT ONLY Observed: 01/20/2018 Status: F Source: JUNIOR (ROUTINE) 7:31 AM [facility] REPOSITORY [facility] Imaging Services [address] [place] [address] Lower Ext Joint Only (Routine) MR#: [id number] Acct: [id number] Name: DEE DUFFY Rep #: [id number] : 1960 F 57 From: Jimy Chiang MD PCP: Ari Raymond MD Status: REG CLI Study: Lower Ext Joint Only (Routine) Date of Exam: 01/20/18 Exam# [id number] Ordering Dr: Maggy Graham DPM STUDY: MRI RIGHT ANKLE WITHOUT CONTRAST REASON FOR EXAM: Female, 57 years old. Pain. TECHNIQUE: Standardized fat and water weighted pulse sequences were obtained in all 3 orthogonal planes. COMPARISON: None. FINDINGS: Normal subcutis adipose space. Normal posterior tibialis tendon. Normal flexor digitorum longus tendon. Normal flexor hallucis longus tendon. Normal peroneus longus and brevis tendons. There is tenosynovitis of the tibialis anterior tendon. Normal extensor hallucis longus tendon. Normal extensor digitorum longus tendons. Normal Achilles tendon and teno-osseous insertion. There is thickening of the central cord of the plantar fascia, without a plantar fasciitis or plantar fascial tear, consistent with plantar fascial degeneration. There is a plantar calcaneal spur, but without cancellous marrow edema. Normal intrinsic muscles of the rearfoot. Normal distal tibiofibular syndesmotic ligamentous complex. Normal lateral ligamentous complex. Normal subtalar ligaments and sinus tarsi. Normal deltoid ligamentous complexes. Normal plantar calcaneonavicular (spring) ligament. There is a joint effusion of the tibiotalar articulation with capsular distension. Normal talar dome. Mild arthritic change of the subtalar articulations. Mild arthritic change at the talonavicular articulation. Normal calcaneocuboid articulation. Normal navicular-cuneiform articulations. MRI/Lower Ext Joint Only (Routine) IMPRESSION: Tenosynovitis of the tibialis anterior. Mild arthritic changes of the hindfoot. Plantar heel spur. Thickening of the plantar fascia. No osteochondral injury of the talar dome. Electronically Signed: Jimy Chiang MD at 9:37 EDT , Service support , CC: Ari Raymond MD; Maggy Graham DPM Recruitment And Outreach Assistant: Signed URGENT CARE VISIT Observed: 12/14/2017 Status: F Source: JUNIOR REPORT 3:36 PM [facility] [address] [place] [address] [address] [place] [address] OFFICE VISIT Date of Service: 12/14/17 MR#: [id number] Acct: [id number] Name: DEE DUFFY Rep #: [id number] : 1960 Provider: Bakari AIKEN Age/Sex: 57/F Location: [facility] Status: Signed Intake Vital Signs12/14/17 Height 5 ft 5 in Intake Visit Reasons: COUGH, SORE THROAT, SINUS Chief Complaint: sinus pressure and post nasal drip Allergies adhesive tape Allergy (Mild, Verified 12/14/17 15:22) itching Medications Ascorbic Acid [Vitamin C] 1,000 mg PO DAILY@0800 05/09/14 [History Confirmed 12/14/17] Calcium Carb/Vitamin D3/Vit K1 [Viactiv Soft Chew] 1 ea PO BID 05/09/14 [History Confirmed 12/14/17] Celecoxib [Celebrex] 200 mg PO DAILY 05/09/14 [History Confirmed 12/14/17] Gabapentin [Neurontin] 300 mg PO QHS 05/09/14 [History Confirmed 12/14/17] Glucosa Santa 2Kcl/Chondroitin Santa [Glucosamine-Chondroitin Cap] 4 ea PO DAILY 05/09/14 [History Confirmed 12/14/17] Tizanidine HCl [Zanaflex] 4 mg PO QHS 11/14/14 [History Confirmed 12/14/17] acetaminophen 500 mg tablet 500 mg PO Q6H PRN 08/19/17 [History Confirmed 12/14/17] amoxicillin 500 mg capsule 1,000 mg PO BID 10 Days #40 cap 12/14/17 [Rx Confirmed 12/14/17] PFSH Medical History DDD (degenerative disc disease), lumbar (Chronic) Arthritis (Acute) Deficiency of internal organs (Acute) History of back pain (Acute) Knee pain, right (Acute) Polyneuropathy (Acute) Post hysterectomy menopause (Acute) Surgical History H/O arthroscopy of right knee (Acute) H/O hernia repair (Acute) H/O tubal ligation (Acute) History of bunionectomy of left great toe (Acute) History of surgical removal of ganglion cyst (Acute) Hx of rotator cuff surgery (Acute) S/P laparoscopic assisted vaginal hysterectomy (LAVH) (Acute) Total knee replacement status (Acute) Family History Mother Breast cancer Dementia Father Prostate cancer Hypertension Social History household members: spouse number of children: 2 current occupational status: employed 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 Patient has no complaints fever, sweats, rash, chest pain/shortness of breath, or cough. She is non-smoker. 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 She is non-smoker. She notes no family members in her household with similar signs or symptoms. She notes no other associated symptoms, no alleviating or aggravating factors. ROS Const Constitutional: Positive for chills; no excessive sweating, abnormal sleep pattern, fever(s), night sweats or body ache Eyes Eyes: No change in vision ENT ENT: Positive for post nasal drip, sinus pressure and sinus pain; no abnormal hearing, ear pain, ear discharge, ear pressure, hearing loss or sore throat Resp Respiratory: No cough or chest congestion Cardio Cardiology: No excessive sweating, chest pain at rest, chest pain with exertion, shortness of breath, dyspnea on exertion, irregular heart rhythm, generalized swelling or leg pain with exertion Gastro GI: No abdominal pain, change in stool character or change in bowel habits Skin Skin: No rash Neuro Neurology: No abnormal hearing Psych Psychiatric: No abnormal sleep pattern Endo Endocrine: No excessive sweating Exam Const General: cooperative, healthy appearing, no acute distress, comfortable Nutritional Appearance: average body habitus Orientation: alert, awake, oriented x3 HENMT Head: normal to inspection Ears: hearing grossly normal bilaterally, external ears normal, TM's normal bilaterally, EAC's normal Nose: external nose normal, nares normal, septum normal, no nasal discharge Face and sinus: normal facial exam, face symmetric, sinus tenderness maxillary Mouth: oral mucosae normal, lip normal, oropharynx normal, tongue normal Teeth and gingiva: dentition normal, gingiva normal Throat: uvula midline, tonsils normal, posterior oropharynx normal, no postnasal drainage Eyes General: appearance normal, both eyes and all related structures Neck Neck: normal visual inspection, full ROM, no lymphadenopathy, no meningeal signs, supple Neck mass: No Thyroid: thyroid normal Lymphatic: no lymphadenopathy noted Chest Chest palpation AND inspection: normal inspection of the chest Resp Effort AND Inspection: normal respiratory effort, able to speak in complete sentences, symmetric chest movement, no cough Auscultation: Bilateral: Clear to Auscultation Cardio Palpation: normal PMI Rate: regular rate Rhythm: regular rhythm Heart Sounds: S1 normal, S2 normal, no gallops, no murmurs, no rubs Pulses: radial pulses present GI Inspection: normal to inspection Palpation: soft Skin General: no rashes or lesions noted Assessment AND Plan Problems 1. Sinusitis J32.9 Plan Amoxicillin as prescribed today at patient's request; see HPI. Clear fluids, rest, Tylenol, warm facial compresses as needed as instructed today. Avoid tobacco smoke exposure. Follow-up with PCP in 3-5 days should symptoms not improved, sooner should symptoms worsen or any other concerns develop. Patient states acknowledging understanding all the above. This note was generated with [employer] dictation software. It may contain incorrect words, spelling, and punctuation that were not noted in checking the note before signing. Medications New: Plan Detail Goals Decrease radiculopathy Decrease pain and increase ROM Barriers Work requirements Coding Level of Care Code Off vis,est,level 3 Diagnoses Sinusitis J32.9 12/14/17 1536 <Electronically signed by Bakari AIKEN> Date Bakari AIKEN Cosigner Signature: Date (if applicable) CC: SPINE LUMBAR Observed: 12/10/2017 Status: F Source: JUNIOR (ROUTINE) 8:43 AM [facility] REPOSITORY [facility] Imaging Services [address] [place] [id number] Spine Lumbar (Routine) MR#: [id number] Acct: [id number] Name: DEE DUFFY Rep #: [id number] : 1960 F 57 From: Sebastian García PCP: Ari Raymond MD Status: REG CLI Study: Spine Lumbar (Routine) Date of Exam: 12/10/17 Exam# [id number] Ordering Dr: Rosita Jimenez MD STUDY: MRI LUMBAR SPINE WITHOUT CONTRAST REASON FOR EXAM: Female, 57 years old. back pain, RIGHT SCIATIC PAIN, RIGHT LEG NUMBNESS, PAIN INTO BILAT BUTTOCKS. TECHNIQUE: Standardized fat and water weighted pulse sequences were obtained in the sagittal and axial planes. COMPARISON: September 21, 2012 FINDINGS: T12-L1: There is mild disc space narrowing and endplate spondylosis. There is no significant central canal or foraminal stenosis. Normal lumbar lordosis. There is no substantial scoliosis. Normal conus medullaris that terminates at the L1/L2 L1-2: There is mild disc space narrowing and endplate spondylosis. There is mild facet arthropathy without significant central canal or foraminal stenosis. L2-3: There is moderate disc space narrowing and endplate spondylosis. There is facet arthropathy with moderate central canal and mild bilateral foraminal stenosis. Findings are stable since the prior examination L3-4: There is moderate disc space narrowing and endplate sclerosis. There is a mild disc bulge and facet hypertrophy with mild central canal and mild bilateral foraminal stenosis. L4-5: There is moderate disc space narrowing and endplate spondylosis. There is facet arthropathy with severe central canal stenosis. There is mild bilateral foraminal stenosis. Findings are stable since the prior examination L5-S1: There is moderate disc space narrowing and endplate spondylosis. There is extensive facet arthropathy with mild central canal stenosis. There is mild bilateral foraminal stenosis. Findings are stable since the prior examination. Normal visualized sacral ala. Normal visualized paraspinous soft tissue structures. MRI/Spine Lumbar (Routine) IMPRESSION: Stable examination. L2/L3: Moderate central canal stenosis. L4/L5: Severe central canal stenosis. L5/S1: Severe facet arthropathy. Electronically Signed: Sebastian García MD at 8:35 EDT Tel , Service support , CC: Rosita Jimenez MD; Ari Raymond MD Recruitment And Outreach Assistant: Signed CHIROPRACTIC REPORT Observed: 11/14/2017 Status: F Source: JUNIOR 9:[address] [facility] [address] [place] [id number] OFFICE VISIT Date of Service: 11/10/17 MR#: [id number] Acct: [id number] Name: DEE DUFFY Rep #: [id number] : 1960 Provider: Beti Anthony D.C. Age/Sex: 57/F Location: [facility] Status: Signed Intake Vital Signs11/10/17 Height 5 ft 5.5 in 11/10/17 Weight: 210 lb 11/10/17 Body Mass Index (BMI) 34.4 Intake Visit Reasons: back pain Chief Complaint: back pain Is patient in pain?: Yes Allergies adhesive tape Allergy (Mild, Verified 08/19/17 09:58) itching Medications Ascorbic Acid [Vitamin C] 1,000 mg PO DAILY@0800 05/09/14 [History Confirmed 08/19/17] Calcium Carb/Vitamin D3/Vit K1 [Viactiv Soft Chew] 1 ea PO BID 05/09/14 [History Confirmed 08/19/17] Celecoxib [Celebrex] 200 mg PO DAILY 05/09/14 [History Confirmed 08/19/17] Gabapentin [Neurontin] 300 mg PO QHS 05/09/14 [History Confirmed 08/19/17] Glucosa Santa 2Kcl/Chondroitin Santa [Glucosamine-Chondroitin Cap] 4 ea PO DAILY 05/09/14 [History Confirmed 08/19/17] Tizanidine HCl [Zanaflex] 4 mg PO QHS 11/14/14 [History Confirmed 08/19/17] acetaminophen 500 mg tablet 500 mg PO Q6H PRN 08/19/17 [History Confirmed 08/19/17] PFSH Medical History DDD (degenerative disc disease), lumbar (Chronic) Arthritis (Acute) Deficiency of internal organs (Acute) History of back pain (Acute) Knee pain, right (Acute) Polyneuropathy (Acute) Post hysterectomy menopause (Acute) Surgical History H/O arthroscopy of right knee (Acute) H/O hernia repair (Acute) H/O tubal ligation (Acute) History of bunionectomy of left great toe (Acute) History of surgical removal of ganglion cyst (Acute) Hx of rotator cuff surgery (Acute) S/P laparoscopic assisted vaginal hysterectomy (LAVH) (Acute) Total knee replacement status (Acute) Family History Mother Breast cancer Dementia Father Prostate cancer Hypertension Social History household members: spouse number of children: 2 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 The patient states that recently she has had little to no pain in the neck and low back, only her feet have been bothering here while working. Today Dee rates her pain a 2/10 and describes it as a sore ache in the low back from standing for a long period of time, she denies any numbness or tingling. Location: neck and low back pain Duration: intermittant Aggravating or associated factors: frequent bending, lifting, and prolonged standing Relieving factors: sitting and adjustment Pain Quality: aching, dull Exam Musc General: Yes normal posture, normal gait and joint tenderness (C4,T2,T4, L5) Cervical Spine: cervical spasm (L>R scalene and upper trap(slightly improved)), cervical muscular tenderness left medial: paracervical muscle (scalene), loss of normal cervical lordosis Thoracic/Lumbar Spine: thoraco-lumbar spasm (slightly improved) on the right greater than left and on the right (IT Band, piriformis), thoracic and lumbar spine normal to inspection Sacroiliac joints: on the right tender to palpation Office Procedures Chiropractic Treatments Procedures Manipulation: 3-4 regions (C4,T2,T4, L5) Electrical Stimulation: 15 mins Location: cervical and lumbar Traction, Mechanical: Yes Assessment AND Plan 1. Segmental and somatic dysfunction of cervical region M99.01 Orders Orders: 2. Segmental and somatic dysfunction of thoracic region M99.02 Orders Orders: 3. Segmental and somatic dysfunction of lumbar region M99.03 Orders Orders: Plan Detail Goals Decrease radiculopathy Decrease pain and increase ROM Barriers Work requirements Follow Up PRN Coding Level of Care Code No Charge Diagnoses Segmental and somatic dysfunction of cervical region M99.01 Segmental and somatic dysfunction of thoracic region M99.02 Segmental and somatic dysfunction of lumbar region M99.03 Additional Codes Procedures - Electrical Stimulation: 15 mins (63350) Procedures - Traction, Mechanical: Yes (25562) Procedures - Manipulation: 3-4 regions (12708) 11/14/17 0934 <Electronically signed by Beti Anthony D.C.> Date Beti Anthony D.C. Cosigner Signature: Date (if applicable) CC: CHIROPRACTIC REPORT Observed: 11/01/2017 Status: F Source: JUNIOR 2:[address] [facility] [address] [place] [address] OFFICE VISIT Date of Service: 11/01/17 MR#: [id number] Acct: [id number] Name: DEE DUFFY Gabriella Rep #: [id number] : 1960 Provider: Beti Anthony D.C. Age/Sex: 57/F Location: [facility] Status: Signed Intake Vital Signs11/01/17 Height 5 ft 5.5 in 11/01/17 Weight: 221 lb 3 oz 11/01/17 Body Mass Index (BMI) 36.2 Intake Visit Reasons: back pain Chief Complaint: back pain Is patient in pain?: Yes Allergies adhesive tape Allergy (Mild, Verified 08/19/17 09:58) itching Medications Ascorbic Acid [Vitamin C] 1,000 mg PO DAILY@0800 05/09/14 [History Confirmed 08/19/17] Calcium Carb/Vitamin D3/Vit K1 [Viactiv Soft Chew] 1 ea PO BID 05/09/14 [History Confirmed 08/19/17] Celecoxib [Celebrex] 200 mg PO DAILY 05/09/14 [History Confirmed 08/19/17] Gabapentin [Neurontin] 300 mg PO QHS 05/09/14 [History Confirmed 08/19/17] Glucosa Santa 2Kcl/Chondroitin Santa [Glucosamine-Chondroitin Cap] 4 ea PO DAILY 05/09/14 [History Confirmed 08/19/17] Tizanidine HCl [Zanaflex] 4 mg PO QHS 11/14/14 [History Confirmed 08/19/17] acetaminophen 500 mg tablet 500 mg PO Q6H PRN 08/19/17 [History Confirmed 08/19/17] PFSH Medical History DDD (degenerative disc disease), lumbar (Chronic) Arthritis (Acute) Deficiency of internal organs (Acute) History of back pain (Acute) Knee pain, right (Acute) Polyneuropathy (Acute) Post hysterectomy menopause (Acute) Surgical History H/O arthroscopy of right knee (Acute) H/O hernia repair (Acute) H/O tubal ligation (Acute) History of bunionectomy of left great toe (Acute) History of surgical removal of ganglion cyst (Acute) Hx of rotator cuff surgery (Acute) S/P laparoscopic assisted vaginal hysterectomy (LAVH) (Acute) Total knee replacement status (Acute) Family History Mother Breast cancer Dementia Father Prostate cancer Hypertension Social History household members: spouse number of children: 2 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 She states that after her last treatment her neck pain slightly increased described as a tight ache that at times can become constant. Today Dee rates her pain a 3/10 today and describes it as sharp tension in the neck, the pain does increase after working a 12 hr shift, bending, leaning and rotating her head from side to side causes increased pain along with stress. Dee denies any numbness, tingling or radiculopathy she states that her back pain has greatly increased with a slight ache from time to time. Onset: 09/05/17 Location: neck Duration: intermittant Aggravating or associated factors: bending, leaning, and rotation of the neck Relieving factors: heat Pain Quality: aching, dull, sharp Exam Musc General: Yes normal posture, normal gait and joint tenderness (C4,T2,T4, L5) Cervical Spine: cervical spasm (L>R scalene and upper trap), cervical muscular tenderness left medial: paracervical muscle (scalene), loss of normal cervical lordosis Thoracic/Lumbar Spine: thoraco-lumbar spasm on the right greater than left and on the right (IT Band, piriformis), thoracic and lumbar spine normal to inspection Sacroiliac joints: on the right tender to palpation Office Procedures Chiropractic Treatments Procedures Manipulation: 3-4 regions (C4, T2, T4, T6, L5) Electrical Stimulation: 15 mins Location: cervical Assessment AND Plan 1. Segmental and somatic dysfunction of cervical region M99.01 Orders Orders: 2. Segmental and somatic dysfunction of lumbar region M99.03 Orders Orders: 3. Segmental and somatic dysfunction of thoracic region M99.02 Orders Orders: Plan Detail Goals Decrease radiculopathy Decrease pain and increase ROM Barriers Work requirements Follow Up 1 x month Coding Level of Care Code No Charge Diagnoses Segmental and somatic dysfunction of cervical region M99.01 Segmental and somatic dysfunction of lumbar region M99.03 Segmental and somatic dysfunction of thoracic region M99.02 Additional Codes Procedures - Electrical Stimulation: 15 mins (48888) Procedures - Manipulation: 3-4 regions (49298) 11/01/17 1428 <Electronically signed by Beti Anthony D.C.> Date eBti Anthony D.C. Cosigner Signature: Date (if applicable) CC: CHIROPRACTIC REPORT Observed: 10/24/2017 Status: F Source: UBALDO 10:[address] [facility] [address] [place] [id number] OFFICE VISIT Date of Service: 10/20/17 MR#: [id number] Acct: [id number] Name: DEE DUFFY Rep #: [id number] : 1960 Provider: Beti Anthony D.C. Age/Sex: 57/F Location: [facility] Status: Signed Intake Vital Signs10/20/17 Height 5 ft 5.5 in 10/20/17 Weight: 222 lb 10/20/17 Body Mass Index (BMI) 36.3 Intake Visit Reasons: back pain Is patient in pain?: No Allergies adhesive tape Allergy (Mild, Verified 08/19/17 09:58) itching Medications Ascorbic Acid [Vitamin C] 1,000 mg PO DAILY@0800 05/09/14 [History Confirmed 08/19/17] Calcium Carb/Vitamin D3/Vit K1 [Viactiv Soft Chew] 1 ea PO BID 05/09/14 [History Confirmed 08/19/17] Celecoxib [Celebrex] 200 mg PO DAILY 05/09/14 [History Confirmed 08/19/17] Gabapentin [Neurontin] 300 mg PO QHS 05/09/14 [History Confirmed 08/19/17] Glucosa Santa 2Kcl/Chondroitin Santa [Glucosamine-Chondroitin Cap] 4 ea PO DAILY 05/09/14 [History Confirmed 08/19/17] Tizanidine HCl [Zanaflex] 4 mg PO QHS 11/14/14 [History Confirmed 08/19/17] acetaminophen 500 mg tablet 500 mg PO Q6H PRN 08/19/17 [History Confirmed 08/19/17] PFSH Medical History DDD (degenerative disc disease), lumbar (Chronic) Arthritis (Acute) Deficiency of internal organs (Acute) History of back pain (Acute) Knee pain, right (Acute) Polyneuropathy (Acute) Post hysterectomy menopause (Acute) Surgical History H/O arthroscopy of right knee (Acute) H/O hernia repair (Acute) H/O tubal ligation (Acute) History of bunionectomy of left great toe (Acute) History of surgical removal of ganglion cyst (Acute) Hx of rotator cuff surgery (Acute) S/P laparoscopic assisted vaginal hysterectomy (LAVH) (Acute) Total knee replacement status (Acute) Family History Mother Breast cancer Dementia Father Prostate cancer Hypertension Social History household members: spouse number of children: 2 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 She states that after having a massage earlier this week her pain greatly decreased, even after working last night her pain did not increase. Today Dee rates her pain a 1/10 on occasion, with sudden quick movements like bending and twisting there is a slight ache in the low back. Dee states that her neck is no longer painful, and her L IT band is slightly sore but does not cause any pain. The patient denies any numbness or tingling. Location: low back Duration: intermittent Aggravating or associated factors: quick movements of bending or twisting Relieving factors: chiro, massage Pain Quality: aching, dull Exam Musc General: Yes normal posture, normal gait and joint tenderness (C5,T2,T5, L3, L5) Cervical Spine: cervical spasm (R>L scalene and upper trap) Thoracic/Lumbar Spine: thoraco-lumbar spasm on the right greater than left and on the right (IT Band, piriformis), thoracic and lumbar spine normal to inspection Sacroiliac joints: on the right tender to palpation Office Procedures Chiropractic Treatments Procedures Manipulation: 3-4 regions (C6, T2, T6, L5) Electrical Stimulation: 15 mins Location: lumbar Traction, Mechanical: Yes Details: Traction: thor/lumbar, 15min Assessment AND Plan Problems 1. Segmental and somatic dysfunction of lumbar region M99.03 2. Segmental and somatic dysfunction of thoracic region M99.02 3. Segmental and somatic dysfunction of cervical region M99.01 4. DDD (degenerative disc disease), lumbar M51.36 Plan Transition to PRN due to positive response to treatment and massage. Orders Orders: Plan Detail Goals Decrease radiculopathy Decrease pain and increase ROM Barriers Work requirements Follow Up PRN Coding Level of Care Code No Charge Diagnoses Segmental and somatic dysfunction of lumbar region M99.03 Segmental and somatic dysfunction of thoracic region M99.02 Segmental and somatic dysfunction of cervical region M99.01 DDD (degenerative disc disease), lumbar M51.36 Additional Codes Procedures - Electrical Stimulation: 15 mins (11271) Procedures - Manipulation: 3-4 regions (95090) Procedures - Traction, Mechanical: Yes (39400) 10/24/17 1011 <Electronically signed by Beti Anthony D.C.> Date Beti Anthony D.C. Cosigner Signature: Date (if applicable) CC: CHIROPRACTIC REPORT Observed: 10/18/2017 Status: F Source: JUNIOR 11:[address] [facility] [address] [place] [address] OFFICE VISIT Date of Service: 08/10/17 MR#: [id number] Acct: [id number] Name: DEE DUFFY Rep #: [id number] : 1960 Provider: Beti Anthony D.C. Age/Sex: 57/F Location: [facility] Status: Signed Intake Vital Signs08/10/17 Height 5 ft 6.5 in 08/10/17 Weight: 210 lb 08/10/17 Body Mass Index (BMI) 33.3 Intake Visit Reasons: 2 W FU Chief Complaint: Neck pain Is patient in pain?: Yes Allergies adhesive tape Allergy (Mild, Verified 08/09/17 14:12) itching Medications Ascorbic Acid [Vitamin C] 1,000 mg PO DAILY@0800 05/09/14 [History Confirmed 11/27/14] Calcium Carb/Vitamin D3/Vit K1 [Viactiv Soft Chew] 1 ea PO BID 05/09/14 [History Confirmed 11/27/14] Celecoxib [Celebrex] 200 mg PO DAILY 09/04/14 [History Confirmed 11/27/14] Gabapentin [Neurontin] 300 mg PO QHS 05/09/14 [History Confirmed 11/27/14] Glucosa Santa 2Kcl/Chondroitin Santa [Glucosamine-Chondroitin Cap] 4 ea PO DAILY 05/09/14 [History Confirmed 11/27/14] Tizanidine HCl [Zanaflex] 4 mg PO QHS 11/14/14 [History Confirmed 11/27/14] Hydrocodone Bitart/Apap 5-325 [Ladonia 5/325] 1 - 2 tab PO Q4H PRN PRN #30 tab 12/05/14 [Rx] Iron Poly/Vit C [Niferex-150] 150 mg PO DAILYCM #30 cap 12/05/14 [Rx] Ondansetron [Zofran Odt] 4 mg PO Q6H PRN PRN #20 tab 12/05/14 [Rx] Pantoprazole Sodium [Protonix] 40 mg PO DAILY #30 tab 12/05/14 [Rx] Polyethylene Glycol 3350 [Miralax] 17 gm PO DAILY #0 packet 12/05/14 [Rx] Rivaroxaban [Xarelto] 10 mg PO DAILY@0600 #19 tab 12/05/14 [Rx] Senna/Docusate Sodium [Senokot-S] 2 tab PO BID #0 tab 12/05/14 [Rx] Hydrocodone Bitart/Apap 5-325 [Ladonia 5/325] 1 - 2 tab PO Q4H PRN PRN #20 tab 06/16/15 [Rx] Ondansetron [Zofran Odt] 4 mg PO Q8H PRN PRN #10 tab 06/16/15 [Rx] Tamsulosin HCl [Flomax] 0.4 mg PO DAILY 14 Days cap 06/16/15 [Rx] PFSH Medical History Osteoarthritis (Acute) Sciatica (Acute) Segmental and somatic dysfunction of cervical region (Acute) Segmental and somatic dysfunction of thoracic region (Acute) Segmental and somatic dysfunction of lumbar region (Acute) Arthritis (Chronic) Sciatica (Chronic) Obesity (BMI 30-39.9) (Chronic) Status post bilateral knee replacements (Acute) Arthritis (Acute) Deficiency of internal organs (Acute) Polyneuropathy (Acute) Post hysterectomy menopause (Acute) Surgical History H/O hernia repair (Acute) History of surgical removal of ganglion cyst (Acute) Hx of rotator cuff surgery (Acute) Total knee replacement status (Acute) Social History household members: spouse number of children: 2 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 She states that after her last adjustment her neck becomes sore and stiff, more on the L side. Today Dee rates her pain a 6/10 and describes it as sore and slightly burning. Dee states that her low back pain has also slightly increased becoming sore and tight. Dee denies any numbness and tingling. Location: Neck AND low back pain Aggravating or associated factors: standing, laying face down, sitting for a long period of time Pain Quality: aching, sharp, burning Exam Musc General: Yes normal posture, normal gait and joint tenderness (C2, C5, T4, T8, L5) Cervical Spine: cervical spinal tenderness at C2, at C5 and at C6, cervical spasm Thoracic/Lumbar Spine: thoracic and lumbar spine normal to inspection, thoraco-lumbar spasm (R QL), thoracic spinal tenderness (L3, L4, L5) Sacroiliac joints: on the right Office Procedures Chiropractic Treatments Procedures Manipulation: 3-4 regions (C6, T4, T6, L5) Electrical Stimulation: 15 mins (cervical/pelvis) Traction, Mechanical: Yes Assessment AND Plan Problems 1. Sciatica M54.30 2. Segmental and somatic dysfunction of cervical region M99.01 3. Segmental and somatic dysfunction of thoracic region M99.02 4. Segmental and somatic dysfunction of lumbar region M99.03 Plan Acute care treatment plan: 2x/wk Orders Orders: Plan Detail Goals Decrease radiculopathy Decrease pain and increase ROM Barriers Work requirements Follow Up 2 Days 10/18/17 1113 <Electronically signed by Beti Anthony D.C.> Date Beti Anthony D.C. Cosign Signature: Date (if applicable) CC: CHIROPRACTIC REPORT Observed: 10/12/2017 Status: F Source: JUNIOR 11:[address] [facility] [address] [place] [address] OFFICE VISIT Date of Service: 10/11/17 MR#: [id number] Acct: [id number] Name: DEE DUFFY Rep #: [id number] : 1960 Provider: Beti Anthony D.C. Age/Sex: 57/F Location: [facility] Status: Signed Intake Vital Signs10/11/17 Height 5 ft 5.5 in 10/11/17 Weight: 210 lb 10/11/17 Body Mass Index (BMI) 34.4 Intake Visit Reasons: neck pain Is patient in pain?: Yes Allergies adhesive tape Allergy (Mild, Verified 08/19/17 09:58) itching Medications Ascorbic Acid [Vitamin C] 1,000 mg PO DAILY@0800 05/09/14 [History Confirmed 08/19/17] Calcium Carb/Vitamin D3/Vit K1 [Viactiv Soft Chew] 1 ea PO BID 05/09/14 [History Confirmed 08/19/17] Celecoxib [Celebrex] 200 mg PO DAILY 05/09/14 [History Confirmed 08/19/17] Gabapentin [Neurontin] 300 mg PO QHS 05/09/14 [History Confirmed 08/19/17] Glucosa Santa 2Kcl/Chondroitin Santa [Glucosamine-Chondroitin Cap] 4 ea PO DAILY 05/09/14 [History Confirmed 08/19/17] Tizanidine HCl [Zanaflex] 4 mg PO QHS 11/14/14 [History Confirmed 08/19/17] acetaminophen 500 mg tablet 500 mg PO Q6H PRN 08/19/17 [History Confirmed 08/19/17] PFSH Medical History DDD (degenerative disc disease), lumbar (Chronic) Arthritis (Acute) Deficiency of internal organs (Acute) History of back pain (Acute) Knee pain, right (Acute) Polyneuropathy (Acute) Post hysterectomy menopause (Acute) Surgical History H/O arthroscopy of right knee (Acute) H/O hernia repair (Acute) H/O tubal ligation (Acute) History of bunionectomy of left great toe (Acute) History of surgical removal of ganglion cyst (Acute) Hx of rotator cuff surgery (Acute) S/P laparoscopic assisted vaginal hysterectomy (LAVH) (Acute) Total knee replacement status (Acute) Family History Mother Breast cancer Dementia Father Prostate cancer Hypertension Social History household members: spouse number of children: 2 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 She states that today her back feels achy and out of line. Dee rates her pain a 2/10 and states it is staying localized to the low back. Bending, prolonged standing, and walking still increases the patients pain. Dee denies any numbness or tingling. Her neck has not been causing any pain since her last visit. Location: low back pain Duration: occasional Aggravating or associated factors: prolonged walking, standing and bending Relieving factors: chiro Pain Quality: aching, dull Exam Musc General: Yes normal posture, normal gait and joint tenderness (C5,T5, L3, L5) Cervical Spine: cervical spasm (R>L scalene and upper trap) Thoracic/Lumbar Spine: thoraco-lumbar spasm on the right greater than left and on the left (IT Band, piriformis), thoracic and lumbar spine normal to inspection Sacroiliac joints: on the left Office Procedures Chiropractic Treatments Procedures Manipulation: 3-4 regions (C6, T4, T8, L5) Electrical Stimulation: 15 mins Location: Lumbar Assessment AND Plan Problems 1. DDD (degenerative disc disease), lumbar M51.36 2. Segmental and somatic dysfunction of cervical region M99.01 3. Segmental and somatic dysfunction of thoracic region M99.02 4. Segmental and somatic dysfunction of lumbar region M99.03 Plan Follow up in 2 weeks Orders Orders: Plan Detail Goals Decrease radiculopathy Decrease pain and increase ROM Barriers Work requirements Follow Up 2 Weeks Coding Level of Care Code No Charge Diagnoses DDD (degenerative disc disease), lumbar M51.36 Segmental and somatic dysfunction of cervical region M99.01 Segmental and somatic dysfunction of thoracic region M99.02 Segmental and somatic dysfunction of lumbar region M99.03 Additional Codes Procedures - Electrical Stimulation: 15 mins (51267) Procedures - Manipulation: 3-4 regions (75237) 10/12/17 1153 <Electronically signed by Beti Anthony D.C.> Date Beti Anthony D.C. Cosigner Signature: Date (if applicable) CC: CHIROPRACTIC REPORT Observed: 09/29/2017 Status: F Source: JUNIOR 3:[address] [facility] [address] [place] [address] OFFICE VISIT Date of Service: 09/29/17 MR#: [id number] Acct: [id number] Name: DEE DUFFY Rep #: [id number] : 1960 Provider: Beti Anthony D.C. Age/Sex: 57/F Location: [facility] Status: Signed Intake Vital Signs09/29/17 Height 5 ft 5.5 in 09/29/17 Weight: 222 lb 09/29/17 Body Mass Index (BMI) 36.3 Intake Visit Reasons: neck pain Is patient in pain?: Yes Allergies adhesive tape Allergy (Mild, Verified 08/19/17 09:58) itching Medications Ascorbic Acid [Vitamin C] 1,000 mg PO DAILY@0800 05/09/14 [History Confirmed 08/19/17] Calcium Carb/Vitamin D3/Vit K1 [Viactiv Soft Chew] 1 ea PO BID 05/09/14 [History Confirmed 08/19/17] Celecoxib [Celebrex] 200 mg PO DAILY 05/09/14 [History Confirmed 08/19/17] Gabapentin [Neurontin] 300 mg PO QHS 05/09/14 [History Confirmed 08/19/17] Glucosa Santa 2Kcl/Chondroitin Santa [Glucosamine-Chondroitin Cap] 4 ea PO DAILY 05/09/14 [History Confirmed 08/19/17] Tizanidine HCl [Zanaflex] 4 mg PO QHS 11/14/14 [History Confirmed 08/19/17] acetaminophen 500 mg tablet 500 mg PO Q6H PRN 08/19/17 [History Confirmed 08/19/17] PFSH Medical History DDD (degenerative disc disease), lumbar (Chronic) Arthritis (Acute) Deficiency of internal organs (Acute) History of back pain (Acute) Knee pain, right (Acute) Polyneuropathy (Acute) Post hysterectomy menopause (Acute) Surgical History H/O arthroscopy of right knee (Acute) H/O hernia repair (Acute) H/O tubal ligation (Acute) History of bunionectomy of left great toe (Acute) History of surgical removal of ganglion cyst (Acute) Hx of rotator cuff surgery (Acute) S/P laparoscopic assisted vaginal hysterectomy (LAVH) (Acute) Total knee replacement status (Acute) Family History Mother Breast cancer Dementia Father Prostate cancer Hypertension Social History household members: spouse number of children: 2 current occupational status: employed 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 Dee states her neck is stiff and sore with a slight tightness after working. The patient also complains of R IT band pain, the pain starts at the top of the R hip and radiates into the knee. Prolonged sitting, bending and walking all cause increased pain. Dee states that her IT band pain came on after moving her mom. Today Dee rates her pain a 5/10 and describes it as a deep throbbing ache, she does not complain of any low back pain today and denies any numbness or tingling. Onset: 09/23/17 Location: neck and R IT band Duration: frequent Aggravating or associated factors: lifting, moving Pain Quality: aching, dull, radiating Exam Musc General: Yes normal posture, normal gait and joint tenderness (C2, C5,T5, L3, L5) Cervical Spine: cervical spasm (R>L scalene and upper trap) Thoracic/Lumbar Spine: thoraco-lumbar spasm on the right greater than left and on the left (IT Band, piriformis), thoracic and lumbar spine normal to inspection Sacroiliac joints: on the left Office Procedures Chiropractic Treatments Procedures Manipulation: 3-4 regions (C2, T4, T6, L5) Electrical Stimulation: 15 mins Location: Cervical and lumbar Traction, Mechanical: Yes Details: Traction: thor/lumb, 15min Assessment AND Plan Problems 1. Segmental and somatic dysfunction of lumbar region M99.03 2. Segmental and somatic dysfunction of thoracic region M99.02 3. Segmental and somatic dysfunction of cervical region M99.01 4. DDD (degenerative disc disease), lumbar M51.36 Plan Follow up 2x/mo Orders Orders: Plan Detail Goals Decrease radiculopathy Decrease pain and increase ROM Barriers Work requirements Follow Up 2 Weeks Coding Level of Care Code No Charge Diagnoses Segmental and somatic dysfunction of lumbar region M99.03 Segmental and somatic dysfunction of thoracic region M99.02 Segmental and somatic dysfunction of cervical region M99.01 DDD (degenerative disc disease), lumbar M51.36 Additional Codes Procedures - Electrical Stimulation: 15 mins (56780) Procedures - Manipulation: 3-4 regions (26012) Procedures - Traction, Mechanical: Yes (79200) 09/29/17 1529 <Electronically signed by Beti Anthony D.C.> Date Beti Barnes Signature: Date (if applicable) CC: ALLERGIES ALLERGIES DATE TYPE / CODE NAME / CODE REACTION SEVERITY SOURCE 08/18/2018 Drug adhesive Itching [facility] Allergy/416 tape/[id number] Hospital 748070(SNOM (RXNORM) Repository ED CT) ENCOUNTERS ENCOUNTERS ADMIT/DISCHARGE ACCOUNT ADMITTING ENCOUNTER LOCATION SOURCE NUMBER CLASS 09/27/2018 [id number] Ambulatory [place] 6 [facility] ing:PT Repository 09/21/2018 [id number] Ambulatory [place] 9 [facility] ing:MASS Repository 08/23/2018/ [id number] Ambulatory [place] 8 7 [facility] ing:MASS Repository 08/18/2018/ [id number] Ambulatory BMSBuilding:B [place] 8 2 [facility] Repository 08/18/2018 [id number] Ambulatory [place] 3 [facility] ing:LABSPEC Repository 05/16/2018 [id number] Ambulatory [place] 6 [facility] Hospital ing:EMPH Repository 04/28/2018/ [id number] Shawn Louise Ambulatory [place] 8 0 [facility] Hospital ing:AS1Fxvx: Repository [id number]: 1 04/28/2018 [id number] Shawn Louise Ambulatory BMSBuilding:B [place] 6 [facility] Repository 04/28/2018 [id number] Ambulatory BMSBuilding:B [place] 9 [facility] Repository 04/20/2018 [id number] Ambulatory [place] 5 [facility] ing:MTRAD Repository 04/10/2018/ [id number] Ambulatory [place] 8 5 [facility] ing:EMPH Repository 01/20/2018 [id number] Ambulatory [place] 9 [facility] ing:MRI Repository 12/14/2017/ [id number] Ambulatory BMSBuilding:B [place] 8 0 [facility] Repository 12/10/2017 [id number] Ambulatory [place] 8 [facility] ing:MRI Repository 11/10/2017/ [id number] Ambulatory BMSBuilding:B [place] 8 4 [facility] Repository 11/01/2017/ [id number] Ambulatory BMSBuilding:B [place] 8 9 [facility] Repository 10/20/2017/ [id number] Ambulatory BMSBuilding:B [place] 8 0 [facility] Repository 10/11/2017/ [id number] Ambulatory BMSBuilding:B [place] 8 6 [facility] Repository 09/29/2017/ [id number] Ambulatory BMSBuilding:B [place] 8 8 [facility] Repository 08/10/2017/ [id number] Ambulatory BMSBuilding:B [place] 7 3 [facility] Repository PAYERS PAYERS ENCOUNTER GUARANTOR PAYER SUBSCRIBER SOURCE 09/27/2018 DEE [id number] Primary Insurance:[facility] DEE PEREZMDOB: [facility] [id number] [facility] [address]Ycq: [facility] Number: Repository () [id number] Date:7551-40-63YY [address] [address]SZWQ[place]W, [place] [address]WI: CHECK WEBSITE 09/27/2018 Secondary NOT GIVENUNK [place] Insurance:SELF PAY [facility] Number: Effective Repository Date:2018-07-11 09/21/2018 DEE [id number] Primary Insurance:[facility] DEE PEREZMDOB: [facility] [facility] [id number] [facility] [address]Puj: [facility] Number: Repository () [id number] Date:2365-05-15ZO [address] [address]OEWPZGLZN, [place] [address]NP: CHECK WEBSITE 09/21/2018 Secondary NOT GIVENUNK [place] Insurance:SELF PAY [facility] Number: Effective Repository Date:2018-09-18 08/23/2018 DEE [id number] Primary Insurance:[facility] DEE Quiroz OREMDOB: [place] [address], [facility] [id number] [place] [address]Hbu: [facility] Number: Repository () [id number] Date:0537-05-30PN [address] [address], [place] [address]KW: CHECK WEBSITE 08/23/2018 Secondary NOT GIVENUNK [place] Insurance:SELF PAY [facility] Number: Effective Repository Date:2017-10-06 08/18/2018 DEE Quiroz [id number] Primary Insurance:[facility] DEE Quiroz OREMDOB: [place] [address], [facility] [id number] [place] [address]Pcx: [place] [phone]) [phone] Number: Repository () [id number] Date:7930-91-34TV [address] [address]QFYIKPCYX, [place] [address]HU: CHECK WEBSITE 08/18/2018 Secondary NOT GIVENUNK [place] Insurance:SELF PAY [facility] Number: Effective Repository Date:2018-08-18 08/18/2018 DEE Quiroz [id number] Primary Insurance:[facility] DEE Quiroz OREMDOB: [place] [address], [facility] [id number] [place] [address]Juz: [facility] Number: Repository () [id number] Date:8472-10-32HM [address] [address]XHPONGUDP, [place] [address]WX: CHECK WEBSITE 08/18/2018 Secondary NOT GIVENUNK [place] Insurance:SELF PAY [facility] Number: Effective Repository Date:2018-08-18 05/16/2018 DEE Quiroz [id number] Primary NOT GIVENUNK [place] [address], Insurance:SELF PAY [facility] [place] [address]Ocp: [facility] Number: Effective Repository () Date:2018-05-06 04/28/2018 DEE Quiroz [id number] Primary Insurance:[facility] DEE Quiroz OREMDOB: [place] [address], [employer] [facility] [id number] [place] [address]Koh: [facility] Number: Repository () [id number] Date:2963-66-37JW [address] [address]US[place]PB, [place] [address]FU: CHECK WEBSITE 04/28/2018 Secondary NOT GIVENUNK [place] Insurance:SELF PAY [facility] Number: Effective Repository Date:2018-03-24 04/28/2018 DEE Gabriella [id number] Primary Insurance:[facility] DEE Quiroz OREMDOB: [place] [address], [facility] [id number] [place] [address]Ftt: [facility] Number: Repository () [id number] Date:3375-67-34UK [address] [address]ICFMEEBWI, [place] [address]MQ: CHECK WEBSITE 04/28/2018 Secondary NOT GIVENUNK [place] Insurance:SELF PAY [facility] Number: Effective Repository Date:2018-04-28 04/28/2018 DEE Quiroz [id number] Primary Insurance:[facility] DEE PEREZMDOB: [place] [address], [employer] [facility] [id number] [place] [address]Wmw: [facility] Number: Repository () [id number] Date:5333-20-11EG [address] [address]QMXCHYURR, [place] [address]QD: CHECK WEBSITE 04/28/2018 Secondary NOT GIVENUNK [place] Insurance:SELF PAY [facility] Number: Effective Repository Date:2018-04-28 04/20/2018 DEE Gabriella [id number] Primary Insurance:[facility] DEE Quiroz OREMDOB: [place] [address], [employer] [facility] [id number] [facility] [place] [address]The: [facility] Number: Repository () [id number] Date:0788-59-74LL [address] [address]PBVWHMQIW, [place] [address]II: CHECK WEBSITE 04/20/2018 Secondary NOT GIVENUNK [place] Insurance:SELF PAY [facility] Number: Effective Repository Date:2018-04-20 04/10/2018 DEE [id number] Primary NOT GIVENUNK [place] [address], Insurance:SELF PAY [facility] [place] [address]Fpm: [facility] Number: Effective Repository (HP) Date:2018-04-10 01/20/2018 DEE [id number] Primary Insurance:[facility] DEE Quiroz OREMDOB: [place] [address], [facility] [id number] [facility] [place] [address]Ism: [facility] Number: Repository () [id number] Date:1093-34-31DO [address] [address]BX[place]LA[place], [place] [address]UX: CHECK WEBSITE 01/20/2018 Secondary NOT GIVENUNK [place] Insurance:SELF PAY [facility] Number: Effective Repository Date:2018-01-10 12/14/2017 DEE [id number] Primary Insurance:[facility] DEE Quiroz OREMDOB: [place] [address], [employer] [facility] [id number] [facility] [place] [address]Dwk: [facility] Number: Repository () [id number] Date:4696-96-53FK [address] [address], [place] [address]NN: CHECK WEBSITE 12/14/2017 Secondary NOT GIVENUNK [place] Insurance:SELF PAY [facility] Number: Effective Repository Date:2017-12-14 12/10/2017 DEE [id number] Primary Insurance:[facility] DEE Quiroz OREMDOB: [place] [address], [employer] [facility] [id number] [facility] [place] [address]Mqq: [facility] Number: Repository () [id number] Date:7927-83-52HV [address] [address]HCZWZWXKZ, [place] [address]SW: CHECK WEBSITE 12/10/2017 Secondary NOT GIVENUNK [place] Insurance:SELF PAY [facility] Number: Effective Repository Date:2017-12-05 11/10/2017 DEE Quiroz [id number] Primary Insurance:[facility] DEE Quiroz OREMDOB: [place] [address], [facility] [id number] [facility] [place] [address]Rvh: [facility] Number: Repository () [id number] Date:1255-82-15VV [address] [address]AVUD, [place] [address]OI: CHECK WEBSITE 11/10/2017 Secondary NOT GIVENUNK [place] Insurance:SELF PAY [facility] Number: Effective Repository Date:2017-11-01 11/01/2017 DEE Quiroz [id number] Primary Insurance:[facility] DEE Quiroz OREMDOB: [place] [address], [facility] [id number] [place] [address]Wlu: [facility] Number: Repository () [id number] Date:1160-82-94OO [address] [address]ZJSRFBCXZ, [place] [address]CO: CHECK WEBSITE 11/01/2017 Secondary NOT GIVENUNK [place] Insurance:SELF PAY [facility] Number: Effective Repository Date:2017-10-20 10/20/2017 DEE Quiroz [id number] Primary Insurance:[facility] DEE PEREZMDOB: [place] [address], [facility] [id number] [place] [address]Nnt: [facility] Number: Repository () [id number] Date:1869-62-07DK [address] [address]PP[place], [place] [address]NN: CHECK WEBSITE 10/20/2017 Secondary NOT GIVENUNK [place] Insurance:SELF PAY [facility] Number: Effective Repository Date:2017-10-11 10/11/2017 DEE Quiroz [id number] Primary Insurance:[facility] DEE PEREZMDOB: [place] [address], [facility] [id number] [facility] [place] [address]Tct: [facility] Number: Repository () [id number] Date:0430-31-05DN [address] [address]TUHBOSDSC, [place] [address]RE: CHECK WEBSITE 10/11/2017 Secondary NOT GIVENUNK [place] Insurance:SELF PAY [facility] Number: Effective Repository Date:2017-09-29 09/29/2017 DEE [id number] Primary Insurance:[facility] DEE PEREZMDOB: [place] [address], [facility] [id number] [facility] [place] [address]Pjt: [place] [phone]) [phone] Number: Repository () [id number] Date:0973-27-14RO [address] [address]PKDXJID[place], [place] [address]DB: CHECK WEBSITE 09/29/2017 Secondary NOT GIVENUNK [place] Insurance:SELF PAY [facility] Number: Effective Repository Date:2017-09-21 08/10/2017 DEE [id number] Primary Insurance:[facility] DEE PEREZMDOB: [place] [facility] [id number] [facility] [place] [address]Ndl: [facility] Number: Repository () [id number] Date:5644-00-70FE [address] [address]XNBDBUVAQ, [place] [address]DH: CHECK WEBSITE 08/10/2017 Secondary NOT GIVENUNK [place] Insurance:SELF PAY [facility] Number: Effective Repository Date:2017-08-06
== END ==
PROVIDERS: Family Provider Family Medicine; PCP Family Medicine; Referring Provider Physician Assistant Surgical; Visit Provider Physician Assistant Surgical
DX: J02.9 Acute pharyngitis, unspecified (principal)
CPT/HCPCS: 87081

== ENCOUNTER 2018-08-23 10:45 | Outpatient (RCR) | payer OTHER, SELFPAY ==
--- NOTE | 2018-02-07 10:00 | DT_ITS ---
This patient was seen during an EMR downtime February 06, 2018 - February 13, 2018. This patient may have a combination of paper and electronic documentation or all paper documentation. All documentation is viewable within the e-chart portion of [facility] for each patient visit.
--- NOTE | 2018-08-24 11:05 | DS.PCM_ITS ---
Massage Therapy Discharge Summary: Initial Evaluation: 10/17/2017 Diagnosis: Cervicalgia No. of Visits: Date of last visit: 08/23/2018 Goals: Decreased neck and shoulder pain Decreased muscle tension Improved range of motion This patient is being discharged from our care at the [facility]. Thank you, Moriah Hernandez LMT
== END 2018-08-23 19:00 | disposition home or self-care (01) ==
LOC: MASS 10:45
PROVIDERS: Family Provider Family Medicine; PCP Family Medicine; Visit Provider Family Medicine
DX: M54.2 Cervicalgia (principal)
CPT/HCPCS: 97124

== ENCOUNTER → 2018-11-27 10:41 | Outpatient (CLI) | payer OTHER, SELFPAY ==
[2018-08-18 17:00] VITALS: BMI 34.4
--- NOTE | 2018-11-27 10:58 | RAD_ITS ---
STUDY: X-RAY - LEFT KNEE REASON FOR EXAM: Female, 58 years old. Bilateral knee surgery 4 years ago. Follow-up. TECHNIQUE: 4 view(s) of the knee. COMPARISON: Left knee, November 03, 2015 and November 02, 2016. FINDINGS: There is a total knee replacement. The prosthetic components are intact and articulate normally with each other. There is no evidence of loosening from the underlying bone. There is no evidence of osseous fracture or destructive osseous pathology. No joint effusion. The soft tissue structures are unremarkable. RAD/Knee 3 Views IMPRESSION: Stable left total knee arthroplasty without change when compared to the prior study. Electronically Signed: Valeriy Diaz DO at 10:32 EDT Tel [phone], Service support ,
--- NOTE | 2018-11-27 11:03 | RAD_ITS ---
STUDY: X-RAY - RIGHT KNEE REASON FOR EXAM: Female, 58 years old. Knee surgery 4 years ago. Follow-up. TECHNIQUE: 3 view(s) of the knee. COMPARISON: November 02, 2016. FINDINGS: There is a total knee replacement. The prosthetic components are intact and articulate normally with each other. There is no evidence of loosening from the underlying bone. There is no evidence of osseous fracture or destructive osseous pathology. There is no joint effusion. The soft tissue structures are unremarkable. RAD/Knee 3 Views IMPRESSION: Right total knee arthroplasty without acute abnormality or interval change. Electronically Signed: Valeriy Diaz DO at 9:58 EDT Tel [phone], Service support ,
== END ==
PROVIDERS: Family Provider Family Medicine; PCP Family Medicine; Referring Provider Orthopaedic Surgery; Visit Provider Orthopaedic Surgery
DX: M25.561 Pain in right knee (principal); M25.562 Pain in left knee; Z96.653 Presence of artificial knee joint, bilateral
CPT/HCPCS: 73562

== ENCOUNTER → 2018-11-29 09:14 | Outpatient (CLI) | payer OTHER, SELFPAY ==
[2018-08-18 17:00] VITALS: BMI 34.4
--- NOTE | 2018-11-29 09:17 | RAD_ITS ---
STUDY: X-RAY - THORACIC SPINE REASON FOR EXAM: Female, 58 years old. Back pain TECHNIQUE: 3 view(s) of the thoracic spine were obtained. COMPARISON: None. FINDINGS: Normal kyphosis of the thoracic spine. There is no substantial scoliosis. Normal thoracic vertebrae and endplates. Normal disc space heights. The soft tissue structures are unremarkable. RAD/Thoracic Spine 3 Views IMPRESSION: Normal x-ray examination of the thoracic spine. No fracture Electronically Signed: Guevara Chávez MD at 5:47 EDT Tel , Service support ,
== END ==
PROVIDERS: Family Provider Family Medicine; PCP Family Medicine; Referring Provider Anesthesiology Pain Medicine; Visit Provider Anesthesiology Pain Medicine
DX: M54.9 Dorsalgia, unspecified (principal)
CPT/HCPCS: 72072

== ENCOUNTER 2019-01-12 09:30 | Outpatient (RCR) | payer OTHER, SELFPAY ==
--- NOTE | 2018-07-17 16:05 | HP.PTEVAL_ITS ---
Patient's Visit Information DEE DUFFY is a 58 year old F referred to Physical Therapy by Maggy Graham DPM with a diagnosis of S/P R foot surgery. Date of Evaluation: 07/17/18 Physical Therapist: Peterson Marte PT, - Visit Plan Frequency: 2x /Week Duration: 2 Months Plan: R ankle stretching and strengthening, balance and proprio, PROM/mobs, bike, and HEP - Subjective Subjective: DOS: 04/28/18. Pt reports she had ankle pain for over 2 years. Pt reports her arch had collapsed, so she had to have it repaired. She also had a bunyonectomy. Pt was NWB'ing for 6 weeks, then 30% WBing for 2 weeks, then 70% until 3 weeks ago. Pt reports 1 week ago, she was told to begin 100%. Pt ambulates in a cam boot at this time. Pt reports she still gets increased pain with wb'ing activity. Pt is glad to have had her surgery at this time as the pain is significantly less than prior to surgery. Pt reports mild numbness still in R foot surrounding the incision. Pt reports no sleep difficulty secondary to pain. 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 1/10 pain while at rest, 6/10 - Pain R foot Pain Intensity (Out of 10): 1 Pain Intensity Range: 6 - Objective Neuro: B LE sensation is WNL to light touch throughout dermatome pattern. Girth at malleolus line: L ankle 26 cm, R ankle 27 cm. Palpation: Incisions are healed. No obvious signs of infection. ROM: L ankle DF= 5, PF= 65. R ankle DF= -8, PF= 35. MMT: L foot 5/5 throughout, R foot 3+/5 and painful - Goals Goal 1:: Decrease R foot pain x 50% to aid with standing tolerance Goal Time Frame: 6-8 Weeks Goal 2:: Increase R ankle DF ROM x 20 degrees to aid restoring a normalized gait pattern Goal Time Frame: 6-8 Weeks Goal 3:: Increase R ankle strength x 1 grade to aid with RTW Goal Time Frame: 6-8 Weeks Goal 4:: I with HEP Goal Time Frame: 6-8 Weeks - Rehabilitation Potential Physical Therapy Diagnosis: R foot pain, weakness, and limited ROM secondary to R foot surgery Rehabilitation Potential: Good - Anticipated Interventions Patient/Client Instruction: Educate patient on: Condition, Plan of Care For the Purpose of:: To improve self management Therapeutic Exercise to Include: Strength training, Endurance training, Balance training, Flexibilty training, Gait and locomotor training, Active ROM For the Purpose of:: To decrease pain, To increase ROM, To improve muscle performance and motor function Cryotherapy (ice pack, ice massage): Yes For the Purpose of:: To decrease pain Thank you for the opportunity to evaluate your patient. For Medicare and Medicare HMO plans, please review the plan of care and approve it. It will need to be FAXED BACK to us at [phone] for Medicare purposes. Please let me know if there are questions or concerns regarding this plan of care. Physician Signature: Date:
--- NOTE | 2018-08-16 14:58 | HP.PTREVAL ---
Maggy Graham DPM, It has been my pleasure to treat DEE DUFFY over the last 10 visits for S/P R foot surgery. Please see the progress note below for an update on the physical therapy plan of care! Subjective: Pt feels like she is gradually getting better Objective/Function: R ankle pain ranges from 1/10-5/10. R ankle DF ROM: 0 degrees. R ankle MMT: 4-/5 throughout. Pt is progressing well toward Rx goals Plan Plan: Attempt to get 12 more PT visits for R LE strengthening Goals Goal 1:: Decrease R foot pain x 50% to aid with standing tolerance Goal Time Frame: 6-8 Weeks Goal Progress: Progressing Goal 2:: Increase R ankle DF ROM x 20 degrees to aid restoring a normalized gait pattern Goal Time Frame: 6-8 Weeks Goal Progress: Progressing Goal 3:: Increase R ankle strength x 1 grade to aid with RTW Goal Time Frame: 6-8 Weeks Goal Progress: Progressing Goal 4:: I with HEP Goal Time Frame: 6-8 Weeks Goal Progress: Progressing Anticipated Interventions Patient/Client Instruction: Educate patient on: Condition, Plan of Care For the Purpose of:: To improve self management Therapeutic Exercise to Include: Strength training, Endurance training, Balance training, Flexibilty training, Gait and locomotor training, Active ROM For the Purpose of:: To decrease pain, To increase ROM, To improve muscle performance and motor function Cryotherapy (ice pack, ice massage): Yes For the Purpose of:: To decrease pain Please do not hesitate to contact me at [phone] by phone or if you have questions or concerns regarding this new plan of care! Sincerely, Peterson Marte, PT,
--- NOTE | 2018-09-08 10:32 | HP.PTREVAL_ITS ---
Maggy Graham DPM, It has been my pleasure to treat DEE DUFFY over the last 18 visits for S/P R foot surgery. Please see the progress note below for an update on the physical therapy plan of care! Subjective: Pt reports her heel is sore Objective/Function: R foot pain ranges from 3-6/10. R ankle MMT: R ankle is 4- /5 throughout with the exception of PF= 5/5. R ankle DF ROM: 6 degrees. Pt is progressing well toward Rx goals Plan Plan: Continue as angela Goals Goal 1:: Decrease R foot pain x 50% to aid with standing tolerance Goal Time Frame: 6-8 Weeks Goal Progress: Progressing Goal 2:: Increase R ankle DF ROM x 20 degrees to aid restoring a normalized gait pattern Goal Time Frame: 6-8 Weeks Goal Progress: Progressing Goal 3:: Increase R ankle strength x 1 grade to aid with RTW Goal Time Frame: 6-8 Weeks Goal Progress: Progressing Goal 4:: I with HEP Goal Time Frame: 6-8 Weeks Goal Progress: Progressing Anticipated Interventions Patient/Client Instruction: Educate patient on: Condition, Plan of Care For the Purpose of:: To improve self management Therapeutic Exercise to Include: Strength training, Endurance training, Balance training, Flexibilty training, Gait and locomotor training, Active ROM For the Purpose of:: To decrease pain, To increase ROM, To improve muscle performance and motor function Cryotherapy (ice pack, ice massage): Yes For the Purpose of:: To decrease pain Please do not hesitate to contact me at [phone] by phone or if you have questions or concerns regarding this new plan of care! Sincerely, Peterson Marte, PT, ATC
--- NOTE | 2018-09-19 10:45 | HP.PTREVAL ---
Maggy Graham DPM, It has been my pleasure to treat DEE DUFFY over the last 22 visits for S/P R foot surgery. Please see the progress note below for an update on the physical therapy plan of care! Subjective: Pt reports she is really sore today after a lot of walking yesterday in the hospital secondary to mother in law's LB surgery Objective/Function: R ankle pain is 4/10 currently. R ankle DF ROM= -3 degrees. R ankle strength is 4-/5 and painful. Pt was progressing well until having to walk a lot yesterday Plan Plan: Pt would benefit from further skilled therapy at increase strength and ROM of R ankle, and to work on decreasing pain. Attempt to get 12 more PT visits approved. Goals Goal 1:: Decrease R foot pain x 50% to aid with standing tolerance Goal Time Frame: 6-8 Weeks Goal Progress: Progressing Goal 2:: Increase R ankle DF ROM x 20 degrees to aid restoring a normalized gait pattern Goal Time Frame: 6-8 Weeks Goal Progress: Progressing Goal 3:: Increase R ankle strength x 1 grade to aid with RTW Goal Time Frame: 6-8 Weeks Goal Progress: Progressing Goal 4:: I with HEP Goal Time Frame: 6-8 Weeks Goal Progress: Goal Met Anticipated Interventions Patient/Client Instruction: Educate patient on: Condition, Plan of Care For the Purpose of:: To improve self management Therapeutic Exercise to Include: Strength training, Endurance training, Balance training, Flexibilty training, Gait and locomotor training, Active ROM For the Purpose of:: To decrease pain, To increase ROM, To improve muscle performance and motor function Cryotherapy (ice pack, ice massage): Yes For the Purpose of:: To decrease pain Please do not hesitate to contact me at [phone] by phone or if you have questions or concerns regarding this new plan of care! Sincerely, Peterson Marte, PT, ATC
--- NOTE | 2018-10-16 09:50 | HP.PTREVAL ---
Maggy Graham DPM, It has been my pleasure to treat DEE DUFFY over the last 31 visits for S/P R foot surgery. Please see the progress note below for an update on the physical therapy plan of care! Subjective: Pt to see Dr. macdonald. Pain was bad this morning 5/10 Objective/Function: R foot pain is 2/10, but increases to 5/10 at worst. R ankle ROM: Df= 0, Pf= 42, Inv= 27, Ever= 6 degrees. R ankl MMT: PF= 5/5, DF and ever= 4/5, Inv= 4+/5. Pt cont to show progress towards rx goals Plan Plan: cont with POC Goals Goal 1:: Decrease R foot pain x 50% to aid with standing tolerance Goal Time Frame: 6-8 Weeks Goal Progress: Progressing Goal 2:: Increase R ankle DF ROM x 20 degrees to aid restoring a normalized gait pattern Goal Time Frame: 6-8 Weeks Goal Progress: Progressing Goal 3:: Increase R ankle strength x 1 grade to aid with RTW Goal Time Frame: 6-8 Weeks Goal Progress: Progressing Goal 4:: I with HEP Goal Time Frame: 6-8 Weeks Goal Progress: Goal Met Anticipated Interventions Patient/Client Instruction: Educate patient on: Condition, Plan of Care For the Purpose of:: To improve self management Therapeutic Exercise to Include: Strength training, Endurance training, Balance training, Flexibilty training, Gait and locomotor training, Active ROM For the Purpose of:: To decrease pain, To increase ROM, To improve muscle performance and motor function Cryotherapy (ice pack, ice massage): Yes For the Purpose of:: To decrease pain Please do not hesitate to contact me at [phone] by phone or if you have questions or concerns regarding this new plan of care! Sincerely, Peterson Marte, PT, ATC
--- NOTE | 2018-10-24 10:02 | HP.PTREVAL ---
Maggy Graham DPM, It has been my pleasure to treat DEE DUFFY over the last 34 visits for S/P R foot surgery. Please see the progress note below for an update on the physical therapy plan of care! Subjective: Pt reports she is sore from work yesterday Objective/Function: Pt reports R ankle/foot pain ranges from 3/10 to 4/10. R ankle MMT: PF 5/5, all other motions are 4-/5 throughout. R ankle DF ROM 0 degrees today. Pt is progressing well but continues to demonstrate a need for skilled therapy to decrease pain, increase strength and ROM Plan Plan: Attempt to get 12 more PT visits approved to continue working on pain, strength, and ROM Goals Goal 1:: Decrease R foot pain x 50% to aid with standing tolerance Goal Time Frame: 6-8 Weeks Goal Progress: Progressing Goal 2:: Increase R ankle DF ROM x 20 degrees to aid restoring a normalized gait pattern Goal Time Frame: 6-8 Weeks Goal Progress: Progressing Goal 3:: Increase R ankle strength x 1 grade to aid with RTW Goal Time Frame: 6-8 Weeks Goal Progress: Progressing Goal 4:: I with HEP Goal Time Frame: 6-8 Weeks Goal Progress: Goal Met Anticipated Interventions Patient/Client Instruction: Educate patient on: Condition, Plan of Care For the Purpose of:: To improve self management Therapeutic Exercise to Include: Strength training, Endurance training, Balance training, Flexibilty training, Gait and locomotor training, Active ROM For the Purpose of:: To decrease pain, To increase ROM, To improve muscle performance and motor function Cryotherapy (ice pack, ice massage): Yes For the Purpose of:: To decrease pain Please do not hesitate to contact me at [phone] by phone or if you have questions or concerns regarding this new plan of care! Sincerely, Peterson Marte, PT, ATC
--- NOTE | 2018-11-27 09:31 | HP.PTREVAL ---
Maggy Graham DPM, It has been my pleasure to treat DEE DUFFY over the last 42 visits for S/P R foot surgery. Please see the progress note below for an update on the physical therapy plan of care! Subjective: Pt reports she is stiff today Objective/Function: R foot pain 3/10. Increases to 5/10 at worst. MMT: DF and Inv= 4/5, PF and Ever= 5/5. DF ROM: 0 degrees AROM, 6 degrees PROM. Pt is progresing well toward Rx goals Plan Plan: continue working on pain, strength, and ROM Goals Goal 1:: Decrease R foot pain x 50% to aid with standing tolerance Goal Time Frame: 6-8 Weeks Goal Progress: Progressing Goal 2:: Increase R ankle DF ROM x 20 degrees to aid restoring a normalized gait pattern Goal Time Frame: 6-8 Weeks Goal Progress: Progressing Goal 3:: Increase R ankle strength x 1 grade to aid with RTW Goal Time Frame: 6-8 Weeks Goal Progress: Progressing Goal 4:: I with HEP Goal Time Frame: 6-8 Weeks Goal Progress: Goal Met Anticipated Interventions Patient/Client Instruction: Educate patient on: Condition, Plan of Care For the Purpose of:: To improve self management Therapeutic Exercise to Include: Strength training, Endurance training, Balance training, Flexibilty training, Gait and locomotor training, Active ROM For the Purpose of:: To decrease pain, To increase ROM, To improve muscle performance and motor function Cryotherapy (ice pack, ice massage): Yes For the Purpose of:: To decrease pain Please do not hesitate to contact me at [phone] by phone or if you have questions or concerns regarding this new plan of care! Sincerely, Peterson Marte, PT, ATC
--- NOTE | 2018-11-27 09:34 | HP.PTREVAL_ITS ---
Maggy Graham DPM, It has been my pleasure to treat DEE DUFFY over the last 42 visits for S/P R foot surgery. Please see the progress note below for an update on the physical therapy plan of care! Subjective: Pt reports she is stiff today Objective/Function: R foot pain 3/10. Increases to 5/10 at worst. MMT: DF and I nv= 4/5, PF and Ever= 5/5. DF ROM: 0 degrees AROM, 6 degrees PROM. Pt is progresing well toward Rx goals Plan Plan: continue working on pain, strength, and ROM Goals Goal 1:: Decrease R foot pain x 50% to aid with standing tolerance Goal Time Frame: 6-8 Weeks Goal Progress: Progressing Goal 2:: Increase R ankle DF ROM x 20 degrees to aid restoring a normalized gait pattern Goal Time Frame: 6-8 Weeks Goal Progress: Progressing Goal 3:: Increase R ankle strength x 1 grade to aid with RTW Goal Time Frame: 6-8 Weeks Goal Progress: Progressing Goal 4:: I with HEP Goal Time Frame: 6-8 Weeks Goal Progress: Goal Met Anticipated Interventions Patient/Client Instruction: Educate patient on: Condition, Plan of Care For the Purpose of:: To improve self management Therapeutic Exercise to Include: Strength training, Endurance training, Balance training, Flexibilty training, Gait and locomotor training, Active ROM For the Purpose of:: To decrease pain, To increase ROM, To improve muscle performance and motor function Cryotherapy (ice pack, ice massage): Yes For the Purpose of:: To decrease pain Please do not hesitate to contact me at [phone] by phone or if you have questions or concerns regarding this new plan of care! Sincerely, Peterson Marte, PT, ATC
--- NOTE | 2018-12-07 16:05 | HP.PTEVAL2 ---
Patient's Visit Information DEE DUFFY is a 58 year old F referred to Physical Therapy by Maggy Graham DPM with a diagnosis of Back pain. Date of Evaluation: 12/07/18 Physical Therapist: Peterson Marte PT, ATC - Visit Plan Frequency: 1x/Week Duration: 2 Weeks Plan: Seek second opinion from aMylin Patricia PT MDT next visit - Subjective Findings: Pt reports she has had mid T/S pain for the past 3 days. Pt reports her pain had an insidious onset in nature. Pt reports she sees Dr. Jimenez for her LBP, but she has never had this pain before. Pt reports she had recent xrays, but has not received the results at this time. Pt reports occasional sleep difficulty secondary to pain. Pt reports breathing tends to increase her pain the most. Pt has found that only putting a pillow behind her back for support helps with the pain. No radiating pain at this time. 0/10 pain at rest, 4/10 pain with deep breathing. - Pain T/S Intensity: 0 Pain Intensity Range: 4 - Objective Objective: Neuro: B LE sensation is WNL to light touch. B patellar reflex= 2/3. Palpation: Pt is very sore on the R side of her spine in the T8-10 region. Mild deformity noted. T/S ROM: Pt is minimally limited with extension, R SB and Rot. MMT: B LE's and UE's are grossly 5/5 throughout. Repeated movements: Repeated ext in standing with table top elevated decreased pain - Goals Goal 1:: Decrease T/S pain x 50% to aid with sleep Goal Time Frame: 2-4 Weeks Goal 2:: Increase T/S ROM x 1 grade to aid with IADL's Goal Time Frame: 2-4 Weeks Goal 3:: I with HEP Goal Time Frame: 2-4 Weeks - Rehabilitation Potential Physical Therapy Diagnosis: Pt has limited T/S ROM and pain secondary to a T/S disc derrangement Rehabilitation Potential: Good - Anticipated Interventions Patient/Client Instruction: Educate patient on: Condition, Plan of Care For the Purpose of:: To improve self management Therapeutic Exercise to Include: Strength training, Body mechanics, Postural training, Flexibilty training, Chelsy Exercises For the Purpose of:: To decrease pain, To increase ROM Cryotherapy (ice pack, ice massage): Yes For the Purpose of:: To decrease pain Thank you for the opportunity to evaluate your patient. For Medicare and Medicare HMO plans, please review the plan of care and approve it. It will need to be FAXED BACK to us at [phone] for Medicare purposes. For Medicare only, by signing this I certify the plan of care. Please let me know if there are questions or concerns regarding this plan of care. Physician Signature: Date:
--- NOTE | 2018-12-14 11:22 | HP.PTDCSUM ---
HP - PT D/C Summary It has been my pleasure to treat DEE DUFFY under orders from Maggy Graham DPM, for the diagnosis of S/P R foot surgery for a total of 46 visit(s). Discharge Date: Please see the following information for a summary of their discharge status. - Subjective Subjective: Mild pain this date - Pain R foot Pain Intensity (Out of 10): 2 - Overall Improvement % Improvement: 80 - Objective Objective/Function: R ankle pain is 1-2/10. R ankle MMT: DF= 4/5, PF= 5/5, Inv/Ever= 4/5. R ankle DF ROM= 0 degrees. Pt is I with HEP - Goals Goal 1:: Decrease R foot pain x 50% to aid with standing tolerance Goal Progress: Goal Met Goal 2:: Increase R ankle DF ROM x 20 degrees to aid restoring a normalized gait pattern Goal Progress: Progressing Goal 3:: Increase R ankle strength x 1 grade to aid with RTW Goal Progress: Progressing Goal 4:: I with HEP Goal Progress: Goal Met - Plan Plan: Discharge - D/C Information If there are questions or concerns regarding this patient's physical therapy, please feel free to call me at [phone]. Thank you for the referral of this patient. Sincerely, Peterson Marte, PT, ATC
--- NOTE | 2018-12-15 13:40 | HP.PTEVAL3 ---
Patient's Visit Information DEE DUFFY is a 58 year old F referred to Physical Therapy by Maggy Graham DPM with a diagnosis of R TKA. Date of Evaluation: 12/15/18 Physical Therapist: Peterson Marte PT, ATC - Visit Plan Frequency: 2x /Week Duration: 4-6 Weeks Plan: R LE stretching and strengthening, core stab ex's, balance and proprio, and HEP - Subjective Findings: DOS: 11/25/14. Pt reports she has a R TKA performed at that time. Pt reports she had PT and felt like she had fully recovered after that surgery. Pt reports she had R foot/ankle surgery in April of 2018. Pt reports shortly after that she began to notice her K knee became weak and started to give out on her. Pt reports she was NWBing after her foot surgery for 2 mos, and notes when she was allowed to WB is when she began to notice the weakness in her R knee. Pt has had xrays taken 2 weeks ago, which showed no significant findings. Pt has R LE radiculopathy which is related to her 2011 LB surgery. No pain in her R knee. Pt has 3 steps into house, and she must negotiate them one step at a time. Pt reports her R knee gives out on her, but she has always caught herself and avoided any falls. No pain at this time. - Objective Objective: Neuro: B LE sensation is WNL to light touch. B achilles reflex= 2/3. Palpation: Crepitus with AROM of the R knee. No obvious deformity. ROM: L knee 0-135 degrees, R knee 0-120 degrees. MMT: R knee ext= 4/5. All other B LE MMT is 5/5 throughout. Girth at joint line: L knee 43 cm, R knee 44 cm. Special test: Pt has significant crepitus with McMurrays test - Goals Goal 1:: Increase R knee strength x 1 grade to aid with preventing future falls Goal Time Frame: 4-6 Weeks Goal 2:: Pt will be able to negotiate 1 flight of stairs reciprocally to aid with IADL's Goal Time Frame: 4-6 Weeks Goal 3:: I with HEP Goal Time Frame: 4-6 Weeks - Rehabilitation Potential Physical Therapy Diagnosis: Pt has difficutly with stair negotiation and with R knee giving out on her secondary to residual weakness from a R TKA Rehabilitation Potential: Good - Anticipated Interventions Patient/Client Instruction: Educate patient on: Condition, Plan of Care For the Purpose of:: To improve self management Therapeutic Exercise to Include: Strength training, Endurance training, Balance training, Dynamic Lumbar Stabilization For the Purpose of:: To increase ROM, To improve muscle performance and motor function Thank you for the opportunity to evaluate your patient. For Medicare and Medicare HMO plans, please review the plan of care and approve it. It will need to be FAXED BACK to us at [phone] for Medicare purposes. For Medicare only, by signing this I certify the plan of care. Please let me know if there are questions or concerns regarding this plan of care. Physician Signature: Date:
--- NOTE | 2019-01-12 10:00 | HP.PTDCS(2) ---
HP - PT D/C Summary (2) It has been my pleasure to treat DEE DUFFY under orders from Maggy Graham DPM, for the diagnosis of Back pain for a total of 10 visit(s). Discharge Date: Please see the following information for a summary of their discharge status. - Subjective Subjective: No pain this date - Overall Improvement % Improvement: 100 - Objective Objective/Function/Assessment: Pt has no T/S pain this date . T/S ROM is now WNL. I with HEP - Goals Patient Goals: Improve Mobility, Improve Function, Decrease Pain, Sleep Normal Goal 1:: Decrease T/S pain x 50% to aid with sleep Goal Progress: Goal Met Goal 2:: Increase T/S ROM x 1 grade to aid with IADL's Goal Progress: Goal Met Goal 3:: I with HEP Goal Progress: Goal Met - Plan Plan: Discharge - D/C Information If there are questions or concerns regarding this patient's physical therapy, please feel free to call me at [phone]. Thank you for the referral of this patient. Sincerely, Peterson Marte, PT, ATC
--- NOTE | 2019-01-12 10:32 | HP.PTDCS(3) ---
HP - PT D/C Summary (3) It has been my pleasure to treat DEE DUFFY under orders from Maggy Graham DPM, for the diagnosis of R TKA for a total of 9visit(s). Discharge Date: Please see the following information for a summary of their discharge status. - Subjective Subjective: Pt reports she is no better this date. Knee is still giving out just as much. - Overall Improvement % Improvement: 10 - Objective Objective/Function/Assessment: R knee strength 5/5. Pt can negotiate stairs reciprocally with 2 handrails. Pt is I with HEP. Rx goals achieved - Goals Patient Goals: Improve Mobility, Improve Function, Maneuver Steps Goal 1:: Increase R knee strength x 1 grade to aid with preventing future falls Goal Progress: Goal Met Goal 2:: Pt will be able to negotiate 1 flight of stairs reciprocally to aid with IADL's Goal Progress: Goal Met Goal 3:: I with HEP Goal Progress: Goal Met - Plan Plan: Discharge - D/C Information If there are questions or concerns regarding this patient's physical therapy, please feel free to call me at [phone]. Thank you for the referral of this patient. Sincerely, Peterson Marte, PT, ATC
== END 2019-01-12 19:00 | disposition home or self-care (01) ==
LOC: PT 09:30
PROVIDERS: Family Provider Family Medicine; PCP Family Medicine; Referring Provider Podiatrist; Visit Provider Podiatrist
DX: Z98.890 Other specified postprocedural states (principal)
CPT/HCPCS: 97035; 97110; 97140; 97162; 97530

== ENCOUNTER 2019-07-19 16:27 | Emergency (ER) | payer OTHER, SELFPAY ==
[2019-05-15 08:42] VITALS: BMI 34.4
[2019-07-19 16:28] VITALS: BP 148/80; PULSE 73; RESP 18; TEMP 36.8; O2SAT 94; BMI 39.3
--- NOTE | 2019-07-19 16:48 | ED.DCSUM_ITS ---
- ER Visit Summary Date of Service: 07/19/19 Chief Complaint: Fall History of Present Illness: The patient is a 59 F who presents after mechanical fall. She tripped on a patient's Mac catheter. She landed on her knees and her left thumb. Her left thumb was causing a lot of pain, but seems to have improved. Her knees still hurt. She has pain distal to her left patella and overlying her right patella. History of total knee replacement bilaterally. Neurovascular intact distally. No other injuries. No blood thinners. Physical Examination: Afebrile and vital signs unremarkable. Left thumb and hand shows normal inspection. Good range of motion. Neurovascular intact. Sk in intact. Bilateral knees show good range of motion and extension. There is ecchymosis overlying the right patella.. Good extension and range of motion. Neurovascular intact bilaterally. Test Results: Xrays of the knees obtained. Emergency Department Course and Treatment: She declined pain medicine. We will check x-rays of the knees. She has minimal tenderness to the left thumb at this time, so x-rays will be deferred. X-rays negative. Follow-up with [facility]. Rest, ice, elevate. Anti- inflammatories for pain. Treatment Plan: As above Disposition: Discharge Impression: 1. Bilateral knee contusions 2. Left thumb sprain This note was generated with [employer] dictation software. It may contain incorrect words, spelling, and punctuation that were not noted in review of the chart prior to signing ED Disposition - Plan for ED Patient: Referrals: Waldemar Raymond MD [Primary Care Provider] -
--- NOTE | 2019-07-19 16:52 | RAD_ITS ---
STUDY: X-RAY - LEFT KNEE REASON FOR EXAM: Female, 59 years old. Trauma TECHNIQUE: 4 view(s) of the knee. COMPARISON: November 27, 2018 FINDINGS: Knee prosthesis is noted in anatomic alignment and position. No evidence for acute fracture. There is prepatellar soft tissue swelling No definitive evidence for loosening or infection of prosthesis RAD/Knee 4 or More Views IMPRESSION: Stable appearance to knee prosthesis without evidence for acute fracture Electronically Signed: Marty Fowler MD at 17:31 EST , Service support ,
--- NOTE | 2019-07-19 17:00 | RAD_ITS ---
STUDY: X-RAY - RIGHT KNEE REASON FOR EXAM: Female, 59 years old. Trauma TECHNIQUE: 4 view(s) of the knee. COMPARISON: November 27, 2018 FINDINGS: Knee prosthesis is noted in anatomic alignment and position. No evidence for acute fracture. There is prepatellar soft tissue swelling noted. No definitive evidence for loosening or infection of prosthesis RAD/Knee 4 or More Views IMPRESSION: Stable appearance to knee prosthesis.. Electronically Signed: Marty Fowler MD at 17:32 EST , Service support ,
--- NOTE | 2019-07-19 17:53 | ED.DEP ---
ED Disposition - Plan for ED Patient: Instructions: Knee Sprain Referrals: [facility] [GROUP OF PHYSICIANS] -
[2019-07-19 18:02] VITALS: BP 159/81; PULSE 66; RESP 18; O2SAT 94
== END 2019-07-19 18:03 | disposition home or self-care (01) ==
LOC: ED 16:50
PROVIDERS: Emergency Provider Emergency Medicine; Family Provider Family Medicine; PCP Family Medicine
DX: S80.01XA Contusion of right knee, initial encounter (principal); S80.02XA Contusion of left knee, initial encounter; S63.602A Unspecified sprain of left thumb, initial encounter; W01.10XA Fall on same level from slipping, tripping and stumbling with subsequent striking against unspecified object, initial encounter; Y93.9 Activity, unspecified; Y92.9 Unspecified place or not applicable; Y99.0 Civilian activity done for income or pay; Z79.899 Other long term (current) drug therapy; Z96.653 Presence of artificial knee joint, bilateral
CPT/HCPCS: 73564; 99282

== ENCOUNTER 2019-08-22 06:49 | Inpatient (IN) | payer OTHER, SELFPAY ==
[2019-05-15 08:42] VITALS: BMI 34.4
[2019-08-10 10:05] VITALS: BP 125/77; PULSE 86; RESP 16; TEMP 36.1; O2SAT 96; BMI 37.8
--- NOTE | 2019-08-10 10:10 | SDCEKG_ITS ---
Test Reason : Blood Pressure : / mmHG Vent. Rate : 068 BPM Atrial Rate : 068 BPM P-R Int : 178 ms QRS Dur : 092 ms QT Int : 372 ms P-R-T Axes : 050 022 036 degrees QTc Int : 395 ms Normal sinus rhythm Normal ECG When compared with ECG of 09-MAY-2014 12:17, No significant change was found Confirmed by LAYLA DOVER, [place]STER ([id number]), editor greeting card NORIS NORWOOD ([id number]) on 08/12/2019 12:20:03 PM Referred By: Bakari Sweet Confirmed By:MAURO RICH MD
[2019-08-10 10:28] LABS: Absolute Lymphocyte Count 1.39 X10^3/uL (0.83-4.51); Absolute Neutrophil Count 2.8 X10^3/uL (2.0-7.7); Basophil# 0.04 X10^3/uL; Basophil% 0.9 % (0-1); Eosinophil# 0.07 X10^3/uL; Eosinophils% 1.5 % (0-5); Hematocrit 45.1 % (37-47); Hemoglobin 14.9 g/dL (12.0-15.0); Lymphocyte # 1.39 X10^3/ul (4.0); Lymphocyte % 30.2 % (19-41); Mean Corpuscular Hgb 29.7 pg (27.0-32.0); Mean Corpuscular Volume 89.8 fL (81-99); Mean Platelet Vol. 9.1 fl (6.2-12.0); Monocyte# 0.35 X10^3/uL; Monocyte% 7.6 % (0-10); NRBC Flagged by Analyzer 0 % (0-5); Neutrophil # 2.75 X10^3/uL (2.7-7.7); Neutrophil % 59.6 % (47-70); Platelet Count 201 K/mm3 (150-450); RBC Distribution Width CV 12.8 % (11.6-14.6); RBC Distribution Width SD 41.9 fl (35.1-43.9); Red Blood Count 5.02 M/mm3 (4.2-5.4); White Blood Count 4.6 K/mm3 (4.4-11.0)
[2019-08-10 10:37] LABS: Anion Gap 3 (5-15); BUN 15 mg/dL (7-18); BUN/Creat Ratio 17.8 RATIO (10-20); Calcium,Total 9.2 mg/dL (8.5-10.1); Chloride 108 mmol/L (98-107); Creatinine, Serum 0.84 mg/dL (0.55-1.02); EST Glomerular Filtration Rate 74 mL/min (>60); Est Glom Filt Rate - Afr Amer 89 mL/min (>60); Estimated Creatinine Clearance 66.49 ml/min; Glucose 91 mg/dL (74-106); Potassium 3.8 mmol/L (3.5-5.1); Sodium Level 140 mmol/L (136-145)
--- NOTE | 2019-08-11 08:53 | PCM.HP.BLA ---
History and Physical History and Physical Patient Name: Meg Gonzalez : 1960 From: HERMAN CORRIGAN PA-C DATE OF SURGERY: 08/22/2019 SCHEDULED PROCEDURE: right revision total knee arthroplasty polyethylene exchange HISTORY OF PRESENT ILLNESS: Preoperative history and physical exam was performed on August 10, 2019. This is a 59-year-old female who has had previous bilateral total knee replacement on November 25, 2014. This was performed by Dr. Jensen Martinez. Patient states she has had pain in her right knee for 4 years. She does complain of instability. She has had multiple falls due to the instability. Patient states the knee wants to give out when walking and turning. She does have difficulty with activities of daily living including shopping. Patient has had a recent injury at work when she tripped landing on bilateral knees. Patient states the pain does not wake her at night. She has been through formal physical therapy. She has had right ankle and foot pain in which she has had surgery with Dr. Graham. Patient has also had previous knee arthroscopies with Dr. Jensen Martinez prior to the total knee replacement. She denies any recent fevers, chills, recent infections. Patient denies chest pain, shortness of breath. After failing conservative measures and discussing treatment options with Dr. Bakari Sweet, the patient does wish to proceed with a revision right total knee arthroplasty polyethylene exchange. We have received clearance from Dr. Raymond primary care physician. REVIEW OF SYSTEMS: ROS: Const: Denies anorexia, anxiety, change in appetite, fever, hard of hearing, vision problems and weight change. CV: Denies chest pain, heart murmur, irregular heartbeat and peripheral vascular disease. Resp: Denies asthma, cough, pneumonia, sleep apnea, SOB, tuberculosis and wheezing. GI: Denies constipation, diarrhea, difficulty swallowing, heartburn, nausea, bloody stools and vomiting. : Urinary: denies incontinence. Musculo: Reports leg swelling, limp and trouble walking, but denies weakness. Skin: Denies Raynaud's, history of shingles and tattoo. Neuro: Reports numbness/tingling but denies ambulatory dysfunction, dizziness and tremor. Psych: Denies anxiety, depression, insomnia, mental illness and stress. Brad/Lymph: Denies anemia, bleeding/bruising tendency and past transfusion. Reviewed, no changes. PAST MEDICAL HISTORY: Advance Care Plan: Other Directive, POA Effective Date: 02/12/2019 Other Directive, LIVING WILL Effective Date: 02/12/2019 PMH: Medical Problems: Arthritis - KNEES Hepatitis - (1979) A Sciatica - SEEING DR. BULLARD Accidents: Fracture - STRESS - RT 2ND METATARSAL Sports Related Injury - RT KNEE ARTHROSCOPY-[facility] Surgical Hx: Tubal Ligation - (1985) SPENCER Arthroscopy - (2002) RT KNEE [facility] DR. MARTINEZ Bunion - (1990) LT FOOT [facility] DR. SALCEDO Ganglion Cyst - LT WRIST 2000, [address] [facility] [address] SALCEDO Stress FX - (2003) RT 2ND METAT[address] DR. ANDRE RT Knee Arthroscopy - (03/31/2009) CHARLI @ [facility] Hysterectomy - (02/2010) [facility] RT Shoulder Arthroscopy - (07/21/2011) ROTATOR CUFF REPAIR [facility] @ [facility] Knee Replacement Bilat - (11/25/2014) [email or web address] Foot and Ankle SX - (04/2018) Anesthesia Complications: None Assistive Devices: None Reviewed, no changes. 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 Personal Habits: Cigarette Use: Former - 1 PACK .Alcohol: Occasionally.Drug Use: Denies Use.Enjoy Exercising: Never Exercises. Reviewed, no changes. VITALS: Ht: 67.5 Wt: 229lb Wt k.874 BMI: 35.3 BP: 118/78 Pulse: 80 Resp: 12 T: 96.9 T: 36.1C ALLERGIES: No Known Drug Allergy MEDICATIONS: Diclofenac Sodium 1 % apply to affected area up to 4 times daily, 2 grams to the right knee., Cymbalta 30 mg 1 by mouth every day, Celebrex 200 mg 1 by mouth every day, Glucosamine-Chondroitin 500-400 4 PO q day, Vitamin C 500 mg 2 PO qday, Tylenol ES 1000 mg. 1 q 6hrs prn villeda, Zanaflex 4 mg 1 daily and work up to three times a day not to take with robaxin, Melatonin 3 mg 1 cap PO qhs PRE-OP EXAM: General appearance:NORMAL Other: Eyes: Conjunctivae and lids: NORMAL Pupils: ERR Ears, Nose, Mouth, and Throat: NORMAL Other: Inspection of lips, teeth and gums: NORMAL Other: Neck: Examination of neck: no masses noted. Respiratory: Assessment of respiratory effort: NORMAL Other: Auscultation of lungs: clear to auscultation no wheezes, rhonchi or rales. Cardiovascular: Auscultation of heart: regular rate and rhythm, no murmurs, gallops or rubs. Gastrointestinal: Exam of abdomen: soft, nontender, nondistended bowel sounds present. PHYSICAL EXAMINATION: On examination of the right knee is cool to touch without erythema. There is no ecchymosis. Previous incision is well-healed without signs of infection. Range of motion: 2 of hyperextension to 130 flexion. There is 2 mm anterior translation with anterior drawer testing. Posterior sag. Sensation intact to light touch. Neurovascularly intact. IMAGING STUDIES: Previous x-rays from [facility] reveals right total knee arthroplasty. On the sagittal alignment shows slight extension of the right knee with the femoral component when compared to the left. Implants appear well fixed. IMPRESSION: 1. Painful right total knee arthroplasty with instability PLAN: Dr. Bakari Sweet did discuss and review with the patient all treatment options including surgical versus nonsurgical options. Patient does wish to proceed with the above-stated procedure. Potential risks, benefits, and complications of the procedure were discussed in detail including but not limited to , infection, nerve and blood vessel damage, persistent pain, numbness, tingling, paresthesias, blood clot, pulmonary embolism, and requirement for possible further surgery. The patient expressed full understanding and has no further questions for the doctor. Patient does agree to proceed with the above-stated procedure and has signed the surgery consent form. This dictation was created using voice recognition software. Phonetic and/or grammatical errors may exist. ___ I have re-examined the patient. There are no clinical changes since date of exam. ___ See progress notes for changes. ___ Dictated on admission Date: Time: Signature:
[2019-08-14 08:16] VITALS: BMI 39.3
[2019-08-15 17:39] LABS: Albumin, Serum 3.9 g/dL (3.2-5.0)
[2019-08-22] VITALS (10 sets, daily range): BP systolic 111–146; BP diastolic 56–82; PULSE 72–84; RESP 12–18; TEMP 36.3–36.6; O2SAT 96–100; BMI 37.8
[2019-08-22 07:20] LABS: Bedside Glucose 72 mg/dL (70-110)
[2019-08-22] MEDS: Scopolamine 1mg/72hr Patch 1 PATCH TD (07:30)
[2019-08-22] MEDS: Lactated Ringers 1,000 ML 125 ML IV ×3 (07:30→16:25)
[2019-08-22] MEDS: Gabapentin 600 MG Tablet PO (07:32)
[2019-08-22] MEDS: Celecoxib 200 MG Capsule 400 MG PO (07:32)
[2019-08-22] MEDS: Acetaminophen 500 MG Tablet 1000 MG PO ×3 (07:33→21:57)
[2019-08-22] MEDS: Magnesium Sulfate 4gm/100mL 4 GM/100 ML IV.SOLN. IV (07:37)
[2019-08-22] MEDS: Cefazolin 2 GM in 0.9% Normal Saline 100 ML IV (08:56)
--- NOTE | 2019-08-22 10:02 | OP.PCM_ITS ---
Report of Operation Date of Procedure: 08/22/19 Pre-Operative Diagnosis: Failed right total knee arthroplasty, global inst ability Post-Operative Diagnosis: Failed right total knee arthroplasty, global instability Surgery/Procedure Performed:: 1 component revision right total knee Description of Surgical Findings:: Stable knee in flexion and extension. office nurse: Beti White Type of Anesthesia:: Spinal - She is a spinal right Anesthesiologist: Shawn Prado Special Medications: 2 g Ancef, 1 g TXA at incision, 1 g TXA closure, 10 mg Dec adron, joint cocktail (5 mg Duramorph, 30 mL of 0.5% Ropivicaine, 1000 units of epinephrine, 30 mg of Toradol) Estimated Blood Loss (mL): 25 Fluids Replaced: 1700 mL crystalloid Description of Procedure: 59yo female history of right TKA in 2015 presents with pain and instability. Reviewed options were discussed the patient. Based on patient's negative work- up for infection symptoms of instability and instability on examination, a polyethylene exchange is recommended. Risks and benefits of the procedure were discussed with the patient including but not limited to blood loss, DVTs, PEs, neurovascular damage, infection, general risk of anesthesia including loss of life. Demonstrated understanding and was able to sign informed consent. On the date of procedure patient's R lower extremity was marked in the preoperative area. The patient was then taken back to the operating room where the patient was placed on the table in the supine position. All bony prominences were identified a well-padded. Anesthesia assumed control of the C-spine and airway and remained controlled throughout the remainder of the procedure. A tourniquet was placed on the operative thigh and the leg was prepped in a sterile fashion. The surgeon then scrubbed at this time .Upon reentering the room left lower extremity was draped in a standard orthopedic fashion. A timeout was then called and everyone agreed upon the side, the site, the procedure to be performed, patient's identity and antibiotics given. A midline skin incision was made and sharp dissection was taken down through skin subcutaneous tissue and fat. Appropriate flaps were elevated medially and laterally. His arthrotomy was identified and the standard medial parapatellar incision was made and the patella was subluxed laterally. The standard deep MCL release was done. At this point a synovectomy commenced. Our attention was first turned towards the subpatellar pouch and all suspicious synovium and tissues were debrided. We then directed our attention towards medial lateral gutters were these tissues were debrided. Knee was then flexed up the polyethylene was removed. Once polyethylene was removed we did the remainder of the synovectomy in the medial and lateral gutters and along the lateral structures and MCL. We then debrided the posterior knee. Knee was flexed up and culture was taken from the femoral notch. And also there was a membrane beneath the tibial baseplate that was removed and sent for culture. He had completed our synovectomy and were happy with the joint. A 6 L of normal saline were then irrigated throughout the wound with low-pressure lavage and the wound was once again explored. We then began trialing. With the trials a 13 mm polyethylene seem to improve the patient's hyperextension she seemed appropriately stable in flexion. Because of this we elected to proceed with a 13 mm CS polyethylene. The final polyethylene was opened and put into place however when taking the knee through range of motion with the 13 mm polyethylene in patient again had hyperextension and instability especially in flexion. At this point based on the patient's previous symptoms and intolerance of instability we elected to remove the 13 mm polyethylene and again re-trialed. A 16 mm polyethylene was trialed which showed appropriate full extension of the knee. This also improved stability in flexion. A 16 mm polyethylene was then opened and put back into place after appropriate trialing. The wound was then irrigated out with a chlorhexidine lavage. The wound was copiously irrigated with normal saline solution. The wound was closed in a layer monsivais fashion using #1 vicryl interrupted sutures for the arthrotomy, 2-0 interrupted Vicryl for the subcuticular layer and louis for final skin closure. A sterile compressive dressing was then placed. The patient was then awakened from anesthesia, transferred to the [facility] and transferred to the PACU for recovery. Post op plan Weightbearing as tolerated, aspirin for DVT prophylaxis. Range of motion as tolerated. My physician blood bank assistant was a vital part of this case. He was important in appropriate retraction during the case, and protection of soft tissues during bony cuts. His intimate knowledge of the case and my steps aided in safe and expedient completion of the procedure as well as appropriate position of the leg during the case. He was also vital in assisting with closure under my direct supervision. Grafts/Implants Used: [place] X3 CS 16mm polyethylene, size 4 - Complications No intraoperative complications - Admit VTE Documentation VTE Present on Admission: No VTE Mechan Device Prophylaxis: SCD's, Thigh High GEORGE Hose VTE Pharm Prophylaxis ordered?: Yes
--- NOTE | 2019-08-22 11:15 | RAD_ITS ---
STUDY: X-RAY - RIGHT KNEE REASON FOR EXAM: Postoperative, total knee arthroplasty. TECHNIQUE: 2 view(s) of the knee. COMPARISON: Radiographs 07/19/2019. FINDINGS: There is a right total knee arthroplasty without evidence of complication. There is soft tissue swelling, postoperative gas in the soft tissues and overlying skin louis. RAD/Knee 1 or 2 Views IMPRESSION: Uncomplicated right total knee arthroplasty. Electronically Signed: Elias Méndez MD at 13:10 EST Tel , Service support ,
[2019-08-22] MEDS: DULoxetine Hcl 30 MG Capsule PO (13:29)
[2019-08-22] MEDS: Ensure Surgery 237 ML LIQUID PO ×2 (13:29→16:29)
[2019-08-22] MEDS: Famotidine 20 MG Tablet PO (13:30)
[2019-08-22] MEDS: Senna/Docusate Sodium 1 Tablet 2 TABLET PO ×2 (13:30→21:57)
[2019-08-22] MEDS: Aspirin 81 MG TAB.CHEW PO (16:26)
[2019-08-22] MEDS: oxyCODONE 5 MG Tablet PO ×2 (16:26→22:01)
[2019-08-22] MEDS: Cefazolin 1 GM/50 ML BAG IV (16:29)
[2019-08-22] MEDS: Doxycycline 100 MG CAPSULE PO (21:57)
[2019-08-22] MEDS: MELATONIN 3 MG TABLET PO (21:58)
[2019-08-23] MEDS: Cefazolin 1 GM/50 ML BAG IV (01:18)
[2019-08-23 04:50] VITALS: BP 104/61; PULSE 87; RESP 18; TEMP 36.9; O2SAT 95
[2019-08-23] MEDS: Acetaminophen 500 MG Tablet 1000 MG PO (04:59)
[2019-08-23] MEDS: oxyCODONE 5 MG Tablet PO ×2 (04:59→09:23)
[2019-08-23 05:34] LABS: Hematocrit 37.1 % (37-47); Hemoglobin 12.1 g/dL (12.0-15.0); Mean Corp Hgb Conc 32.6 g/dL (32-36); Mean Corpuscular Hgb 29.3 pg (27.0-32.0); Mean Corpuscular Volume 89.8 fL (81-99); Mean Platelet Vol. 9.1 fl (6.2-12.0); Platelet Count 196 K/mm3 (150-450); RBC Distribution Width CV 12.9 % (11.6-14.6); RBC Distribution Width SD 42.6 fl (35.1-43.9); Red Blood Count 4.13 M/mm3 (4.2-5.4); White Blood Count 7.2 K/mm3 (4.4-11.0)
[2019-08-23 06:09] LABS: Anion Gap 5 (5-15); BUN 13 mg/dL (7-18); BUN/Creat Ratio 17.6 RATIO (10-20); Calcium,Total 8.2 mg/dL (8.5-10.1); Chloride 106 mmol/L (98-107); Creatinine, Serum 0.74 mg/dL (0.55-1.02); EST Glomerular Filtration Rate 86 mL/min (>60); Est Glom Filt Rate - Afr Amer 104 mL/min (>60); Estimated Creatinine Clearance 75.48 ml/min; Glucose 105 mg/dL (74-106); Potassium 4.3 mmol/L (3.5-5.1); Sodium Level 140 mmol/L (136-145)
--- NOTE | 2019-08-23 09:04 | PCM.PN.ORT ---
Subjective: The patient was sitting in bedside chair upon examination. Patient denies any chest pain, shortness of breath, dizziness, lightheadedness, nausea or vomiting, or calf pain. Pain is controlled on medications. No adverse overnight events. Patient does complain of soreness and pain with the right knee but medications are helpful. There has been some slight drainage over the distal portion of the incision contacting 3 borders. Objective: Vital signs stable and afebrile. Patient is able to plantarflex and dorsiflex actively. Sensation is intact to light touch to saphenous, sural, superficial and deep peroneal, and tibial distribution. Dressing is currently with drainage over the distal portion of the incision contacting 3 borders. Dressing was removed and new Mepilex dressing placed. There was no active drainage. Negative Homans bilaterally, negative signs and symptoms of DVT. - Physical Exam Vitals/I&O's: Vital Signs Temp Pulse Resp BP Pulse Ox 98.5 F 87 18 104/61 95 08/23/19 04:50 08/23/19 04:50 08/23/19 04:50 08/23/19 04:50 08/23/19 04:50 Oxygen Flow Rate (L/min) 6 Oxygen Delivery Method Room Air Weight: 104.7 kg Body Mass Index (BMI) 37.8 Intake and Output for Last 24 Hours 08/21/19 08/22/19 08/23/19 23:59 23:59 23:59 Intake Total 3493.33 / 3493.33 369.5 / 369.5 Output Total 150 / 150 Balance 3343.33 / 3343.33 369.5 / 369.5 General: Alert, Oriented x3, Cooperative, No apparent distress Microbiology Past 72 Hours 08/22/19 Unknown Tissue - Knee Gram Stain - Final 08/22/19 Unknown Tissue - Knee Gram Stain - Final 08/22/19 Unknown Tissue - Knee Gram Stain - Final Laboratory Results 08/23/19 05:08: WBC 7.2, RBC 4.13 L, Hgb 12.1, Hct 37.1, MCV 89.8, MCH 29.3, MCHC 32.6, RDW Std Deviation 42.6, RDW Coeff of Makayla 12.9, Plt Count 196, MPV 9.1 08/23/19 05:08: Sodium 140, Potassium 4.3, Chloride 106, Carbon Dioxide 29.0, Anion Gap 5, BUN 13, Creatinine 0.74, Estim Creat Clear Calc 75.48, Est GFR (MDRD) Af Amer 104, Est GFR (MDRD) Non-Af 86, BUN/Creatinine Ratio 17.6, Glucose 105, Calcium 8.2 L Current Medications Acetaminophen (Tylenol) 1,000 mg PO Q8 [facility] Last Admin: 08/23/19 04:59 Dose: 1,000 mg Documented by: [facility], [facility]) [facility] Admin: 08/22/19 16:26 Dose: 81 mg Documented by: Celecoxib (Celebrex) 200 mg PO BID [facility] Doxycycline Monohydrate (Doxycycline) 100 mg PO BID [facility] Stop: 08/29/19 22:01 Last Admin: 08/22/19 21:57 Dose: 100 mg Documented by: Duloxetine HCl (Cymbalta) 30 mg PO DAILY [facility] Last Admin: 08/22/19 13:29 Dose: 30 mg Documented by: Enteral Nutritional Formula (Ensure Surgery) 237 ml PO TIDCM [facility] Last Admin: 08/22/19 16:29 Dose: 237 ml Documented by: Famotidine (Pepcid) 20 mg PO DAILY [facility] Last Admin: 08/22/19 13:30 Dose: 20 mg Documented by: Lactated Ringer's () 1,000 mls @ 125 mls/hr IV .Q8H [facility] Last Admin: 08/23/19 05:46 Dose: Not Given Documented by: Ketorolac Tromethamine (Toradol) 15 mg IV Q6H PRN PRN PRN Reason: Pain Score 1-5/10 Stop: 08/24/19 07:31 Melatonin (Melatonin) 3 mg PO QHS [facility] Last Admin: 08/22/19 21:58 Dose: 3 mg Documented by: Morphine Sulfate () 2 - 4 mg IV Q2H PRN PRN PRN Reason: Pain Score 6-10/10 Morphine Sulfate () 2 - 4 mg IV Q2H PRN PRN PRN Reason: Pain Score 6-10/10 Ondansetron HCl (Zofran) 4 mg IV Q8H PRN PRN PRN Reason: NAUSEA Oxycodone HCl (Oxyir) 5 - 10 mg PO Q4H PRN PRN PRN Reason: Pain Score 4-10/10 Last Admin: 08/23/19 04:59 Dose: 5 mg Documented by: Promethazine HCl (Phenergan) 12.5 mg IM Q6H PRN PRN; Protocol PRN Reason: NAUSEA/VOMITING Senna/Docusate Sodium (Senokot-S, Carina-Colace) 2 tablet PO BID [facility] Last Admin: 08/22/19 21:57 Dose: 2 tablet Documented by: Sodium Chloride () 10 - 40 ml IV UD PRN PRN Reason: SALINE FLUSH Medical Necessity - Tobacco Use Smoking Status: Former smoker Tobacco Use: Non-smoker Assessment/Plan All Active Problems (Last Reviewed 05/15/19 @ 08:40 by Lara Yeboah) Sinusitis, acute (Acute) Sinusitis (Acute) Gastroenteritis (Acute) Pharyngitis, acute (Acute) Right calf pain (Acute) Osteoarthritis (Acute) Sciatica (Acute) Segmental and somatic dysfunction of cervical region (Acute) Segmental and somatic dysfunction of thoracic region (Acute) Segmental and somatic dysfunction of lumbar region (Acute) Status post bilateral knee replacements (Acute) 1. S/P right revision total knee arthroplasty with polyethylene exchange POD #1 2. Continue Pain Medications: Tylenol and OxyIR 3. DVT Prophylaxis: Aspirin 81 mg twice daily for 4 weeks postoperatively 4. PT/OT: Weightbearing as tolerated 5. H & H: 12.1/37.1, asymptomatic 6. Encouraged Incentive Spirometry 7. Disposition: Orthopedically stable, plan will be for discharge home this afternoon if patient tolerates physical therapy, pain is well controlled, and there is no significant drainage. Prescriptions will be E scribed to [facility]. Patient will follow-up per postop instructions. Patient has outpatient physical therapy established. I have reviewed the [place] Automated Rx Reporting System (OARRS) report for this patient for refill pattern and other prescriber involvement as part of the appropriate surveillance for the provision of acute and chronic controlled medications. The report was requested and reviewed on the date of this entry and was considered in the prescribing process.
--- NOTE | 2019-08-23 09:18 | PCM.DC.TKR ---
Discharge Diet: No Restrictions Discharge Activity: May Not Drive May shower in (days): 1 - Dressing must be intact to skin. Turned dressing away from water Ice area for (Minutes): 20 - Every 1-2 hours while awake Weight Bearing Status: Weight bearing as tolerated Elevate: Operative Extremity Additional Activity Instructions:: Wear elastic stockings for 2 weeks after your surgery. Call your doctor if your incision/area has: Continuous Slow Oozing, Sudden Increased Bleeding, Increased Pain/ Swelling, Increased Redness, Foul Smelling Discharge Call your doctor if you observe: Fever of 101 or Higher, Coldness, Increased Pain, Numbness or Tingling, Change in Color, Calf discomfort, Uncontrolled pain Remove Dressing in (days):: 4 - Okay to remove dressing on August 27, 2019 Additional Instructions: Follow orthopedic postop instructions Allergies/Adverse Reactions: Allergies adhesive tape Adverse Reaction (Mild, Verified 08/22/19 07:23) itching Medications to take at Discharge Ascorbic Acid [Vitamin C] 1,000 mg PO DAILY@0800 05/09/14 Calcium Carb/Vitamin D3/Vit K1 [Viactiv Soft Chew] 1 ea PO BID 05/09/14 Tizanidine HCl [Zanaflex] 4 mg PO QHS 11/14/14 celecoxib 50 mg capsule 100 mg PO DAILY 05/15/19 duloxetine 20 mg capsule,delayed release 30 mg PO DAILY 05/15/19 melatonin 3 mg capsule 3 mg PO HS 05/15/19 Acetaminophen [Tylenol] 1,000 mg PO Q8 tablet 08/23/19 Aspirin [Aspirin, Baby] 81 mg PO BIDCM 30 Days tab 08/23/19 Celecoxib [Celebrex] 200 mg PO BID capsule 08/23/19 Doxycycline 100 mg PO BID #12 cap 08/23/19 Oxycodone [Oxyir] 5 - 10 mg PO Q4H PRN PRN 5 Days #60 tablet 08/23/19 Senna/Docusate Sodium [Senokot-S] 2 tab PO BID #10 tab 08/23/19 The following prescriptions were given: Doxycycline 100 mg PO BID #12 cap Transmission Status: Pending to [facility] Oxycodone [Oxyir] 5 - 10 mg PO Q4H PRN PRN 5 Days #60 tablet PRN Reason: Pain Score 4-10/10 Transmission Status: Sent to [facility] Senna/Docusate Sodium [Senokot-S] 2 tab PO BID #10 tab Transmission Status: Pending to [facility] Primary Care Physician: Waldemar Raymond MD [Primary Care Provider] - Test Results: Test results from this visit will be discussed in further detail at your follow-up appointment, if applicable. Please Follow Up With: [facility] Physical Therapy When: 08/27/19 Please Follow Up With: Apolinar Dukes PA-C When: 09/06/18 @ 3:45 pm
[2019-08-23] MEDS: Aspirin 81 MG TAB.CHEW PO (09:24)
[2019-08-23] MEDS: Doxycycline 100 MG CAPSULE PO (09:24)
[2019-08-23] MEDS: DULoxetine Hcl 30 MG Capsule PO (09:24)
[2019-08-23] MEDS: Senna/Docusate Sodium 1 Tablet 2 TABLET PO (09:24)
[2019-08-23] MEDS: Ensure Surgery 237 ML LIQUID PO ×2 (09:28→13:43)
[2019-08-23] MEDS: Famotidine 20 MG Tablet PO (09:28)
[2019-08-23 09:44] VITALS: BP 161/92; PULSE 84; RESP 18; TEMP 36.7; O2SAT 98
--- NOTE | 2019-08-23 09:56 | CASEMGMT ---
RN CM Assessment Introduced role of RN CM to patient, currently sitting up in chair.? Patient is alert, oriented and able?to participate in RN CM Assessment. ?Care providers, pharmacy, and demographics verified. Presentation: Planned Revision Rt total knee arthroplasty polyethylene exchange Admit Dx: None entered, see above presentation. Re-Admit: No Barriers/Issues: None, patient states that she has a good family support system PCP: Ari Raymond Specialists: Ortho- Dr Martinez, Dr Sweet Preferred Pharmacy: [facility] Insurance: [facility] Rx Benefit: Yes? ?LNOK: Isidro Gonzalez LW/HPOA: Both on file with [facility], HPOA- Dtr Maylin Demetriokeren Living Arrangements:?Lives with her in a H, 3 steps to enter home ADL?s: Independent with ambulation short distance, Independent with ADLs Transportation: Both patient and her drive DME: 2WW, RTS, Walk in shower with shower bench HHC: None SNF: None Goal: Home and does not think will have any additional needs. Has 2WW and already scheduled with Outpatient PT at [facility] on 08/27/19. Denies any issues, concerns, or questions with DC planning at this time. DC PLAN: Home with Outpatient PT [facility] and 2[facility] (Already has both completed). HILDA Castellon
[2019-08-23 11:59] VITALS: BP 138/74; PULSE 84; RESP 18; TEMP 36.9; O2SAT 98
[2019-08-23 13:46] VITALS: BP 126/69; PULSE 91; RESP 18; TEMP 36.8; O2SAT 97
== END 2019-08-23 14:05 | disposition home or self-care (01) | DRG 489 ==
LOC: ACINP 06:50 → MS3 07:56
PROVIDERS: Admitting Provider Specialist; Family Provider Family Medicine; PCP Family Medicine; Referring Provider Specialist; Visit Provider Specialist
PROC: 0SPC09Z Removal of Liner from Right Knee Joint, Open Approach (ICD-10-PCS; principal; 2019-08-22 08:40)
DX: T84.022A Instability of internal right knee prosthesis, initial encounter (principal); Y83.1 Surgical operation with implant of artificial internal device as the cause of abnormal reaction of the patient, or of later complication, without mention of misadventure at the time of the procedure; Z96.653 Presence of artificial knee joint, bilateral
CPT/HCPCS: 36415; 73560; 80048; 82040; 82962; 85025; 85027; 87015; 87070; 87075; 87081; 87102; 87116; 87176; 87205; 87206; 93005; 97110; 97162; 97166; 97530; 99251; C1776; J7120; G0463

== ENCOUNTER 2019-08-25 12:30 | Outpatient (RCR) | payer OTHER, SELFPAY ==
[2018-08-18 17:00] VITALS: BMI 34.4
--- NOTE | 2018-09-25 13:19 | MASS.EVAL ---
Massage Therapy Evaluation: Initial Evaluation Date: 09/21/2018 Referred By: Dr. Segundo EDEN/Age: 09 1960, 58 Diagnosis: Cervicalgia Medications: See med list in chart Goals: Decrease frequency and intensity of headaches Increase cervical range of motion Dcrease muscle stiffness Plan: To be seen one time a month or PRN for a total of 10 visits
--- NOTE | 2019-08-25 16:43 | DS.PCM_ITS ---
Massage Therapy Discharge Summary: Discharge Date: 08/25/2019 Meg was seen for a massotherapy evaluation on 09/21/2018 with the diagnosis of cervicalgia. She was treated with ten sessions of massage therapy consisting of moderate to deep pressure soft tissue techniques, myofascial release and trigger point compression to her cervical, thoracic, lower back, upper extremities, lower extremities and hips. Meg responded well to the therapy by reporting decreased tension and pain throughout her head, neck, shoulders, lower back and hips. Her goals for therapy were met throughout the treatment sessions. At this time this patient is being discharged from our care at [facility] facility.
== END 2019-08-25 19:00 | disposition home or self-care (01) ==
LOC: MASS 12:30
PROVIDERS: Family Provider Family Medicine; PCP Family Medicine; Referring Provider Family Medicine; Visit Provider Family Medicine
DX: M54.2 Cervicalgia (principal)
CPT/HCPCS: 97124

== ENCOUNTER 2019-11-15 10:00 | Outpatient (RCR) | payer OTHER, SELFPAY ==
[2019-08-14 08:16] VITALS: BMI 39.3
[2019-08-22 12:45] VITALS: BMI 37.8
--- NOTE | 2019-08-27 15:01 | HP.PTEVAL_ITS ---
Patient's Visit Information DEE DUFFY is a 59 year old F referred to Physical Therapy by Apolinar Dukes PA-C with a diagnosis of S/P R knee prosthesis repair. Date of Evaluation: 08/27/19 Physical Therapist: Peterson Marte PT, ATC - Visit Plan Frequency: 2-3x /Week Duration: 4-6 Weeks Plan: R knee PROM/mobs, stretching and strengthening, balance and proprio, core, and HEP - Subjective Findings: DOS: 08/22/19. Pt reports she had the plastic components of her R TKA replaced. Pt reports she had a R TKA performed in November of 2014, and the components of the presthetic came loose. Pt reports she feels very swollen since having the surgery performed. Pt reports even theough she has a lot of pain and wwelling since the surgery, her knee is much more stable now. Pt reports her knee would give out on her prior to having this surgery. 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 Pt is able to negotiate stairs but must perform them one step at a time. Pt is currently using a walker in the clinic, no AD prior to surgery. sleep difficulty secondary to pain. No unusual tingling or numbness in R LE. 1/10 pain at rest, 5/10 pain at worst. - Pain R knee Pain Intensity (Out of 10): 1 Pain Intensity Range: 5 - Objective Neuro: B LE sensation is WNL to light touch. Observation: MOderate swelling noted this date. Minimal discoloration present. Incision is healing with no signs of infection. Girth at joint line: L knee 44 cm, R knee 48 cm. ROM: L knee 0-130 degrees. R knee 0- 17-97 degrees. MMT: L LE 5/5 throughout. R LE 3- /5 - Goals Goal 1:: Decrease R knee pain x 50% to aid with sleep Goal Time Frame: 4-6 Weeks Goal 2:: Increase R knee ROM x 30 degrees to aid with restoring a normal gait pattern Goal Time Frame: 4-6 Weeks Goal 3:: Increase R knee strength x 1 grade to aid with stair negotiation Goal Time Frame: 4-6 Weeks Goal 4:: I with HEP Goal Time Frame: 4-6 Weeks - Rehabilitation Potential Physical Therapy Diagnosis: R knee pain, swelling, and limited ROM secondary to R knee surgery Rehabilitation Potential: Good - Anticipated Interventions Patient/Client Instruction: Educate patient on: Condition, Plan of Care For the Purpose of:: To improve self management Therapeutic Exercise to Include: Strength training, Endurance training, Flexibilty training, Gait and locomotor training, Passive ROM, Active ROM, Dynamic Lumbar Stabilization For the Purpose of:: To decrease pain, To increase ROM, To improve muscle performance and motor function Cryotherapy (ice pack, ice massage): Yes For the Purpose of:: To decrease pain Thank you for the opportunity to evaluate your patient. For Medicare and Medicare HMO plans, please review the plan of care and approve it. It will need to be FAXED BACK to us at [phone] for Medicare purposes. For Medicare only, by signing this I certify the plan of care. Please let me know if there are questions or concerns regarding this plan of care. Physician Signature: Date:
--- NOTE | 2019-09-12 11:03 | HP.PTREVAL ---
Apolinar Dukes PA-C, It has been my pleasure to treat DEE DUFFY over the last 8 visits for S/P R knee prosthesis repair. Please see the progress note below for an update on the physical therapy plan of care! Subjective: Mild decrease in pain overall Objective/Function: R knee pain 3/10 currently, increases to 5/10 at worst. R knee ROM: 0-7-120 degrees. R knee MMT: 4/5 throughout. Pt is progressign well torward Rx goals. Plan Plan: ttempt to get 12 more visits approved to progress strength and ROM Goals Goal 1:: Decrease R knee pain x 50% to aid with sleep Goal Time Frame: 4-6 Weeks Goal Progress: Progressing Goal 2:: Increase R knee ROM x 30 degrees to aid with restoring a normal gait pattern Goal Time Frame: 4-6 Weeks Goal Progress: Progressing Goal 3:: Increase R knee strength x 1 grade to aid with stair negotiation Goal Time Frame: 4-6 Weeks Goal Progress: Progressing Goal 4:: I with HEP Goal Time Frame: 4-6 Weeks Goal Progress: Progressing Anticipated Interventions Patient/Client Instruction: Educate patient on: Condition, Plan of Care For the Purpose of:: To improve self management Therapeutic Exercise to Include: Strength training, Endurance training, Flexibilty training, Gait and locomotor training, Passive ROM, Active ROM, Dynamic Lumbar Stabilization For the Purpose of:: To decrease pain, To increase ROM, To improve muscle performance and motor function Cryotherapy (ice pack, ice massage): Yes For the Purpose of:: To decrease pain Please do not hesitate to contact me at [phone] by phone or if you have questions or concerns regarding this new plan of care! Sincerely, Peterson Marte, PT, ATC
--- NOTE | 2019-10-03 14:26 | HP.PTREVAL ---
pAolinar Dukes PA-C, It has been my pleasure to treat DEE DUFFY over the last 17 visits for S/P R knee prosthesis repair. Please see the progress note below for an update on the physical therapy plan of care! Subjective: Pt to see Dr. Sweet tomorrow Objective/Function: R knee pain ranges from 1-3/10. R knee ROM: 0-3-123 degrees. R knee MMT: flex= 4-/5, ext= 4+/5. Pt is progressing well toward Rx goals this date. Plan Plan: Cont with POC Goals Goal 1:: Decrease R knee pain x 50% to aid with sleep Goal Time Frame: 4-6 Weeks Goal Progress: Progressing Goal 2:: Increase R knee ROM x 30 degrees to aid with restoring a normal gait pattern Goal Time Frame: 4-6 Weeks Goal Progress: Progressing Goal 3:: Increase R knee strength x 1 grade to aid with stair negotiation Goal Time Frame: 4-6 Weeks Goal Progress: Progressing Goal 4:: I with HEP Goal Time Frame: 4-6 Weeks Goal Progress: Progressing Anticipated Interventions Patient/Client Instruction: Educate patient on: Condition, Plan of Care For the Purpose of:: To improve self management Therapeutic Exercise to Include: Strength training, Endurance training, Flexibilty training, Gait and locomotor training, Passive ROM, Active ROM, Dynamic Lumbar Stabilization For the Purpose of:: To decrease pain, To increase ROM, To improve muscle performance and motor function Cryotherapy (ice pack, ice massage): Yes For the Purpose of:: To decrease pain Please do not hesitate to contact me at [phone] by phone or if you have questions or concerns regarding this new plan of care! Sincerely, Peterson Marte, PT, ATC
--- NOTE | 2019-10-18 11:33 | HP.PTREVAL_ITS ---
Apolinar Dukes PA-C, It has been my pleasure to treat DEE DUFFY over the last 22 visits for S/P R knee prosthesis repair. Please see the progress note below for an update on the physical therapy plan of care! Subjective: Pt reports she feels much better, but is still extremely sore after working like she hosea yesterday Objective/Function: R knee pain currently 12/13. R knee ROM: 0-10-122. R knee MMT: ext= 4+/5, flex= 4-5 and painful. Pt is progressing well but would benefit from further strengthening and pain reduction Plan Plan: Cont with POC Goals Goal 1:: Decrease R knee pain x 50% to aid with sleep Goal Time Frame: 4-6 Weeks Goal Progress: Progressing Goal 2:: Increase R knee ROM x 30 degrees to aid with restoring a normal gait pattern Goal Time Frame: 4-6 Weeks Goal Progress: Progressing Goal 3:: Increase R knee strength x 1 grade to aid with stair negotiation Goal Time Frame: 4-6 Weeks Goal Progress: Progressing Goal 4:: I with HEP Goal Time Frame: 4-6 Weeks Goal Progress: Progressing Anticipated Interventions Patient/Client Instruction: Educate patient on: Condition, Plan of Care For the Purpose of:: To improve self management Therapeutic Exercise to Include: Strength training, Endurance training, Flexibilty training, Gait and locomotor training, Passive ROM, Active ROM, Dynamic Lumbar Stabilization For the Purpose of:: To decrease pain, To increase ROM, To improve muscle performance and motor function Cryotherapy (ice pack, ice massage): Yes For the Purpose of:: To decrease pain Please do not hesitate to contact me at [phone] by phone or Fax: if you have questions or concerns regarding this new plan of care! Sincerely, Peterson Marte, PT, ATC
--- NOTE | 2019-11-15 10:36 | HP.PTDCSUM ---
HP - PT D/C Summary It has been my pleasure to treat DEE DUFFY referred by Apolinar Dukes PA-C, with the diagnosis of S/P R knee prosthesis repair for a total of 30 visit(s). Discharge Date: Please see the following information for a summary of their discharge status. - Subjective Subjective: No pain this date - Pain R knee Pain Intensity (Out of 10): 0 - Overall Improvement % Improvement: 85 - Objective Objective/Function: Pain 0/10. R knee MMT: 5/5 throughout. R knee ROM: 0-4-127. I with HEP. Rx goals achieved - Goals Goal 1:: Decrease R knee pain x 50% to aid with sleep Goal Progress: Goal Met Goal 2:: Increase R knee ROM x 30 degrees to aid with restoring a normal gait pattern Goal Progress: Goal Met Goal 3:: Increase R knee strength x 1 grade to aid with stair negotiation Goal Progress: Goal Met Goal 4:: I with HEP Goal Progress: Goal Met - Plan Plan: Discharge - D/C Information If there are questions or concerns regarding this patient's physical therapy, please feel free to call me at [phone]. Thank you for the referral of this patient. Sincerely, Peterson Marte, PT, ATC
== END 2019-11-15 19:00 | disposition home or self-care (01) ==
LOC: PT 10:00
PROVIDERS: Family Provider Family Medicine; PCP Family Medicine; Referring Provider Physician Assistant Surgical; Visit Provider Physician Assistant Surgical
DX: T84.022D Instability of internal right knee prosthesis, subsequent encounter (principal)
CPT/HCPCS: 97110; 97161; 97164

== ENCOUNTER → 2020-05-09 12:56 | Outpatient (CLI) | payer OTHER, SELFPAY ==
[2019-08-22 12:45] VITALS: BMI 37.8
--- NOTE | 2020-05-09 12:58 | BI_ITS ---
MAMMOGRAPHY - BILATERAL SCREENING REASON FOR EXAM: Female, 59 years old. Routine annual screening examination. PERTINENT HISTORY: Mother with breast cancer. TECHNIQUE: Digital bilateral breast corrina (3D mammographic acquisition) in the CC and MLO projections. 2-D mediolateral oblique (MLO) and craniocaudad (CC) views of both breasts were obtained. CAD: Full Field Digital Mammography with Computer Added Detection was performed. COMPARISON: Comparison is made with prior study dated 04/12/2014 and 03/23/2013. FINDINGS: Breast Composition: The breasts are heterogeneously dense, which may obscure small masses. There are no dominant masses or suspicious calcifications. Stable small bilateral axillary lymph nodes. No other significant abnormalities are identified. There has been no significant change since the prior study. BI/SCREEN MAMM (CAD) W/CORRINA BILAT IMPRESSION: Stable bilateral screening mammogram. Yearly follow-up mammogram recommended. (A) ASSESSMENT CATEGORY: BIRADS Category 2: Benign. A letter regarding these results will be sent to the patient by the facility within 30 days. Approximately 10% of breast cancers are not detected by mammography. A normal mammogram should not delay biopsy of a clinically suspicious abnormality. [id number] Electronically Signed: Juancarlos Garcia, at 14:19 EDT , Service support ,
== END ==
PROVIDERS: PCP Family Medicine; Referring Provider Family Medicine; Visit Provider Family Medicine
DX: Z12.31 Encounter for screening mammogram for malignant neoplasm of breast (principal); Z80.3 Family history of malignant neoplasm of breast
CPT/HCPCS: 77063; 77067

== ENCOUNTER 2020-07-23 10:38 | Outpatient (RCR) | payer OTHER, SELFPAY ==
[2019-08-22 12:45] VITALS: BMI 37.8
== END 2020-08-04 23:59 ==
LOC: LABSPEC 10:38
PROVIDERS: PCP Family Medicine; Visit Provider Family Medicine Geriatric Medicine
DX: Z03.818 Encounter for observation for suspected exposure to other biological agents ruled out (principal)
CPT/HCPCS: 87426

== ENCOUNTER → 2020-08-08 09:42 | Outpatient (CLI) | payer OTHER, SELFPAY ==
[2019-08-22 12:45] VITALS: BMI 37.8
--- NOTE | 2020-08-08 09:47 | RAD_ITS ---
STUDY: X-RAY - RIGHT KNEE REASON FOR EXAM: Female, 60 years old. 1 YEAR FOLLOW UP. PATIENT HAD A TOTAL RIGHT KNEE REVISION 1 YEAR AGO. HX OF A FIRST TOTAL RIGHT KNEE 5 YRS AGO PER PATIENT. TECHNIQUE: 4 view(s) of the knee. COMPARISON: Comparison is made with prior examination dated 08/22/2009 FINDINGS: Normal visualized distal femur. Normal visualized proximal tibia and fibula. Normal proximal tibiofibular articulation. The patient is status post right total knee replacement. There is good alignment. The soft tissue structures are unremarkable. RAD/Knee 4 or More Views IMPRESSION: Status post right total knee replacement. There is good alignment. Electronically Signed: Juancarlos Garcia, at 13:24 EST , Service support ,
== END ==
PROVIDERS: PCP Family Medicine; Referring Provider Physician Assistant Surgical; Visit Provider Physician Assistant Surgical
DX: Z96.651 Presence of right artificial knee joint (principal)
CPT/HCPCS: 73564

== ENCOUNTER 2020-08-26 12:30 | Outpatient (RCR) | payer OTHER, SELFPAY ==
[2019-08-22 12:45] VITALS: BMI 37.8
--- NOTE | 2019-10-24 10:46 | MASS.EVAL ---
Massage Therapy Evaluation: Initial Evaluation Date: 10/22/2019 /Age: 09 1960, 59 Diagnosis: Neck and back pain Goals: Decrease pain in neck, shoulders, back Decrease muscle tension Increase cervical range of motion Assessment: Meg is a good candidate for massage at this time. We have had success treating her symptoms in the past. Plan: To be seen one time per month or PRN for a total of 10 one hour sessions.
--- NOTE | 2020-08-26 14:08 | DS.PCM_ITS ---
Massage Therapy Discharge Summary: Initial Evaluation Date: 10/22/2019 Diagnosis: Neck and Back Pain No. of Visits: 9 Date of last visit: 08/26/2020 This patient is being discharged from our care at the [facility]. Thank you, Moriah Hernandez LMT
== END 2020-08-26 19:00 | disposition home or self-care (01) ==
LOC: MASS 12:30
PROVIDERS: PCP Family Medicine; Referring Provider Family Medicine; Visit Provider Family Medicine
DX: M54.2 Cervicalgia (principal); M54.9 Dorsalgia, unspecified
CPT/HCPCS: 97124

== ENCOUNTER 2020-09-13 08:45 | Outpatient (CLI) | payer OTHER, SELFPAY ==
[2020-09-12 12:40] VITALS: BMI 36.8
[2020-09-13 08:38] VITALS: BP 125/76; PULSE 97; RESP 18; TEMP 35.6; O2SAT 97
[2020-09-13 08:56] VITALS: BMI 36.8
[2020-09-13 10:01] VITALS: BP 117/59; PULSE 71; RESP 18; TEMP 35.3; O2SAT 98
[2020-09-13 10:33] VITALS: BP 119/66; PULSE 73; RESP 18; TEMP 35.6; O2SAT 98
[2020-09-13 11:01] VITALS: BP 126/62; PULSE 74; RESP 18; TEMP 35.9; O2SAT 98
[2020-09-13 11:46] VITALS: BP 126/67; PULSE 69; RESP 18; TEMP 35.4; O2SAT 96
== END 2020-09-13 11:50 | disposition home or self-care (01) ==
LOC: MS2OUT 08:45 → MS2 08:46
PROVIDERS: PCP Family Medicine; Referring Provider Nurse Practitioner Acute Care; Visit Provider Nurse Practitioner Acute Care
DX: U07.1 COVID-19 (principal)
CPT/HCPCS: 96365; J7050; M0239; Q0239

== ENCOUNTER 2020-10-14 10:30 | Outpatient (RCR) | payer OTHER, SELFPAY ==
[2019-08-22 12:45] VITALS: BMI 37.8
== END 2020-11-02 23:59 ==
LOC: EMPH 10:30
PROVIDERS: PCP Family Medicine; Referring Provider Family Medicine Geriatric Medicine; Visit Provider Family Medicine Geriatric Medicine
DX: Z03.818 Encounter for observation for suspected exposure to other biological agents ruled out (principal)
CPT/HCPCS: 87426

== ENCOUNTER 2021-04-17 21:16 | Emergency (ER) | payer OTHER, SELFPAY ==
[2021-04-07 10:09] VITALS: BMI 36.6
[2021-04-17 21:18] VITALS: BP 138/80; PULSE 103; RESP 14; TEMP 36.3; O2SAT 98; BMI 38.4
[2021-04-17] MEDS: predniSONE 20 MG Tablet 60 MG PO (22:46)
--- NOTE | 2021-04-17 22:48 | EX.ED.DYSGE1 ---
HPI History of Present Illness Chief Complaint: Rash Informant: patient Onset/Context/Timing Onset: Days (2 days) Context: Gradual Onset Current Severity: Moderate Maximum Severity: Moderate Narrative Narrative: Patient presents with poison mary rash. She states she first noted it 2 days ago but worse yesterday. It is on her bilateral arms, waistband, on her left leg. She states they were recently out pulling weeds. She did take Benadryl last night to help her sleep. [facility] Medical History (Updated 04/17/21 @ 22:[address] Brianda Hernandez MD) Arthritis DDD (degenerative disc disease), lumbar Deficiency of internal organs History of back pain Knee pain, right Polyneuropathy Post hysterectomy menopause Home Medications ascorbic acid (vitamin C) 1,000 mg PO DAILY@0800 05/09/14 [History Last Taken Unknown] calcium-vitamin D3-vitamin K 1 ea PO BID 05/09/14 [History Last Taken Unknown] tizanidine 4 mg PO QHS 11/14/14 [History Last Taken Unknown] celecoxib 50 mg capsule 100 mg PO DAILY 05/15/19 [History Last Taken Unknown] duloxetine 20 mg capsule,delayed release 30 mg PO DAILY 05/15/19 [History Last Taken Unknown] melatonin 3 mg capsule 3 mg PO HS 05/15/19 [History Last Taken Unknown] acetaminophen 1,000 mg PO Q8 tab 08/23/19 [Rx Last Taken Unknown] glucos sul [id number] [Glucosamine Chondroitin] 2 cap PO BID 04/17/21 [History Last Taken Unknown] prednisone 60 mg PO DAILY #15 tab 04/17/21 [Rx Last Taken Unknown] Allergy/AdvReac Type Severity Reaction Status Date / Time adhesive tape AdvReac Mild itching Verified 04/17/21 21:18 Family History Mother Breast cancer Dementia Father Prostate cancer Hypertension Surgical History H/O arthroscopy of right knee H/O hernia repair H/O tubal ligation History of bunionectomy of left great toe History of surgical removal of ganglion cyst Hx of rotator cuff surgery S/P laparoscopic assisted vaginal hysterectomy (LAVH) Total knee replacement status Social History household members: spouse number of children: 2 current occupational status: employed 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 Smoking Status: Former smoker quit date: 09/05/97 second hand exposure: No alcohol intake: current alcohol intake frequency: 0-2 drinks per day Alcohol type: wine details: Monthly substance use type: does not use what type of physical activity do you participate in: none ROS ROS ED Constitutional Constitutional ED: Denies chills or fever(s) Eyes Eyes: Denies change in vision ENT ENT ED: Denies sore throat Cardiovascular Cardiovascular: Denies chest pain Respiratory/Chest Respiratory/Chest: Denies cough or dyspnea Gastrointestinal Gastrointestinal: Denies abdominal pain, diarrhea, nausea or vomiting Genitourinary Genitourinary ED: Denies dysuria Musculoskeletal Musculoskeletal: Denies back pain Integumentary Reports rash Neurologic Neurologic: Denies headache(s) or weakness Allergic/Immunologic Allergic/Immunologic ED: Denies urticaria EXAM Physical Exam Const Vital Signs: 04/17/21 21:18 Temperature 97.3 F L Temperature Source Temporal Pulse Rate 103 H Respiratory Rate 14 Blood Pressure 138/80 H Blood Pressure Mean 99 Pulse Ox 98 Oxygen Delivery Method Room Air Positive well nourished and well developed General Appearance ED: well developed HEENT Reports normocephalic and head/scalp atraumatic Eyes PERRL and EOMs intact bilaterally Neck supple Chest Wall inspection of chest normal and palpation of chest normal Resp normal respiratory effort and clear to auscultation bilaterally Cardio regular rate and regular rhythm GI normal to inspection, nondistended, normoactive bowel sounds Palpation: soft Neuro oriented x3 and no sensory deficits noted Sensorium / Orientation: alert Motor Exam: strength 5/5 throughout Psych mental status grossly normal Skin Skin Narrative: Flat erythematous rash consistent with poison mary dermatitis noted to the volar forearms, waistline, and left anterior martinez. Small areas are noted on the left upper eyelid and on her chin. No sign of secondary infection. MDM MDM MDM Narrative Medical decision making narrative: Patient be treated with a course of steroids, first dose given here. She will continue Benadryl at home to help control itching. Discharge Plan Triage Chief Complaint: Rash ED Provider: Brianda Hernandez Dx/Rx/DC Orders Clinical Impression: Poison mary dermatitis Instructions: ED Poison Mary Rash Prescriptions: New prednisone 20 mg tablet 60 mg PO DAILY Qty: 15 RF: 0 No Action melatonin 3 mg capsule 3 mg PO HS RF: 0 celecoxib [Celebrex] 50 mg capsule 100 mg PO DAILY RF: 0 duloxetine [Cymbalta] 20 mg capsule,delayed release(DR/EC) 30 mg PO DAILY RF: 0 ascorbic acid (vitamin C) 500 MG tablet 1,000 mg PO DAILY@0800 RF: 0 calcium-vitamin D3-vitamin K 1 EACH tablet,chewable 1 ea PO BID RF: 0 tizanidine 4 MG tablet 4 mg PO QHS RF: 0 acetaminophen 500 MG tablet 1,000 mg PO Q8 RF: 0 Glucosamine Chondroitin 550-30-1 mg Capsule 2 cap PO BID RF: 0 Primary Care Provider: Waldemar Raymond Referrals: Waldemar Raymond MD [Primary Care Provider] - 1 Week if not improving Disposition Disposition: Home, Self Care
== END 2021-04-17 23:06 | disposition home or self-care (01) ==
PROVIDERS: Emergency Provider Emergency Medicine; PCP Family Medicine
DX: L23.7 Allergic contact dermatitis due to plants, except food (principal); Z87.891 Personal history of nicotine dependence
CPT/HCPCS: 99283

== ENCOUNTER → 2021-06-25 16:40 | Outpatient (CLI) | payer OTHER, SELFPAY ==
--- NOTE | 2021-06-25 16:42 | BI_ITS ---
MAMMOGRAPHY - BILATERAL SCREENING REASON FOR EXAM: Female, 61 years old. Routine annual screening examination. PERTINENT HISTORY: Mother with breast cancer. TECHNIQUE: Digital bilateral breast corrina (3D mammographic acquisition) in the CC and MLO projections. 2-D mediolateral oblique (MLO) and craniocaudad (CC) views of both breasts were obtained. CAD: Full Field Digital Mammography with Computer Added Detection was performed. COMPARISON: Comparison is made with prior study dated 05/09/2020 and 04/12/2014. FINDINGS: Breast Composition: The breasts are heterogeneously dense, which may obscure small masses. There are no dominant masses or suspicious calcifications. Stable benign-appearing bilateral axillary lymph nodes. No other significant abnormalities are identified. There has been no significant change since the prior study. BI/SCRN MAMM (CAD)W/CORRINA BILAT IMPRESSION: Stable bilateral screening mammogram. Yearly follow-up mammogram recommended. (A) ASSESSMENT CATEGORY: BIRADS Category 2: Benign. A letter regarding these results will be sent to the patient by the facility within 30 days. Approximately 10% of breast cancers are not detected by mammography. A normal mammogram should not delay biopsy of a clinically suspicious abnormality. [id number] Electronically Signed: Juancarlos Garcia MD at 8:14 EDT , Service support ,
== END ==
PROVIDERS: PCP Family Medicine; Referring Provider Family Medicine; Visit Provider Family Medicine
DX: Z12.31 Encounter for screening mammogram for malignant neoplasm of breast (principal); Z80.3 Family history of malignant neoplasm of breast
CPT/HCPCS: 77063; 77067

== ENCOUNTER 2021-08-31 12:15 | Outpatient (RCR) | payer OTHER, SELFPAY ==
--- NOTE | 2021-08-31 17:24 | MASS.DISCH ---
Massage Therapy Discharge Summary: Initial Evaluation Date: 10/28/20 Diagnosis: Osteoarthritis No. of Visits: 9 Date of last visit: 08/31/21 This patient is being discharged from our care at the [facility]. Thank you, Moriah Hernandez LMT
== END 2021-08-31 19:00 | disposition home or self-care (01) ==
LOC: MASS 12:15
PROVIDERS: PCP Family Medicine; Referring Provider Family Medicine; Visit Provider Family Medicine
DX: M19.90 Unspecified osteoarthritis, unspecified site (principal)
CPT/HCPCS: 97124

== ENCOUNTER 2021-09-16 17:26 | Outpatient (CLI) | payer OTHER, SELFPAY ==
[2021-09-16 17:44] VITALS: BP 136/83; PULSE 103; RESP 16; TEMP 36.4; O2SAT 97; BMI 39.1
[2021-09-16] MEDS: 0.9% Saline Lock 10 ML Syringe IV (17:45)
[2021-09-16 18:17] VITALS: BP 112/08; PULSE 80; RESP 16; TEMP 36.9; O2SAT 99
[2021-09-16 19:09] VITALS: BP 133/67; PULSE 82; RESP 16; TEMP 36.9; O2SAT 100
== END 2021-09-16 23:59 | disposition home or self-care (01) ==
LOC: MS3OUT 17:26 → MS3 17:27
PROVIDERS: PCP Family Medicine; Referring Provider Nurse Practitioner Acute Care; Visit Provider Nurse Practitioner Acute Care
DX: U07.1 COVID-19 (principal)
CPT/HCPCS: J7050; M0245; Q0245; A4216

== ENCOUNTER → 2022-03-22 | Outpatient (CLI) | payer OTHER, SELFPAY ==
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
== END | disposition home or self-care (01) ==
LOC: OPBI 14:24
PROVIDERS: PCP Family Medicine; Visit Provider Family Medicine
DX: N63.14 Unspecified lump in the right breast, lower inner quadrant (principal); Z80.3 Family history of malignant neoplasm of breast
CPT/HCPCS: 76642; 77062; 77066; G0279

== ENCOUNTER → 2022-06-02 | Outpatient (CLI) | payer OTHER, SELFPAY ==
--- NOTE | 2022-06-02 08:25 | BD_ITS ---
STUDY: DUAL ENERGY X-RAY ABSORPTIOMETRY / DXA REASON FOR EXAM: Female, 62 years old. Z13.820 -- SCREENING FOR OSTEO TECHNIQUE: Bone Mineral Density (BMD) measurements of lumbar spine and bilateral hips were obtained. COMPARISON: None. FINDINGS: Lumbar Spine (L1-L4): g/cm2 (1.440) / T-score (3.5) / Z-score (4.9) Findings are suggestive of normal bone density with a low fracture risk. Left Femur Total: g/cm2 (1.094) / T-score (1.2) / Z-score (2.2) Left Femoral Neck: g/cm2 (0.901) / T-score (0.5) / Z-score (1.8) Right Femur Total: g/cm2 (1.079) / T-score (1.1) / Z-score (2.1) Right Femoral Neck: g/cm2 (0.896) / T-score (0.4) / Z-score (1.7) BD/Dexa Bone Density Study IMPRESSION: The patient is considered normal as outlined below according to World Deshawn Organization (WHO) criteria with a low fracture risk. Reference Information: The T-score is the number of standard deviations above or below the standard which is normal for young adults at their peak bone mineral density. The World Health Organization (WHO) interprets the T-scores as follows: Above -1 Normal bone density Between -1 and -2.5 Osteopenia Equal to / or below -2.5 Osteoporosis As a practical clinical guideline, osteopenia may be graded as follows: Mild -1 through -1.5 Moderate -1.6 through -2.0 Severe -2.1 through -2.4 The Z-score is the number of standard deviations above or below age-matched controls. A Z-score of less than -1.5 would be considered abnormal. References: 1. NIH Osteoporosis and Related Bone Diseases www osteo.org 2. International Society for Clinical Densitometry www iscd.org 3. National Osteoporosis Foundation www nof.org Electronically Signed: Juancarlos Garcia MD at 13:44 EDT ,
== END | disposition home or self-care (01) ==
LOC: OPBD 08:11
PROVIDERS: PCP Family Medicine; Visit Provider Family Medicine
DX: Z13.820 Encounter for screening for osteoporosis (principal)
CPT/HCPCS: 77080

== ENCOUNTER → 2022-08-24 | Outpatient (CLI) | payer OTHER, SELFPAY ==
--- NOTE | 2022-08-24 16:16 | RAD_ITS ---
EXAM: XR RIGHT KNEE COMPLETE, 4 OR MORE VIEWS CLINICAL INDICATION: PAIN TECHNIQUE: Four or more views of the right knee. This report was created using [employer] report generation technology. COMPARISON: 08/08/2020 FINDINGS: BONES/JOINTS: There is a total knee prosthesis in anatomic alignment. No acute fracture. Preservation of the joint space. No sclerotic or destructive changes observed. SOFT TISSUES: Unremarkable. No soft tissue swelling or gas. No radiopaque foreign body. RAD/Knee 4 or More Views IMPRESSION: Total knee prosthesis in anatomic alignment. There are no acute osseous abnormalities. Electronically Signed: Chuckie Herndon MD at 19:19 EST ,
--- NOTE | 2022-08-24 16:17 | RAD_ITS ---
EXAM: XR LEFT KNEE COMPLETE, 4 OR MORE VIEWS CLINICAL INDICATION: PAIN TECHNIQUE: Four or more views of the left knee. This report was created using [employer] report generation technology. COMPARISON: 09/18/2018 FINDINGS: BONES/JOINTS: Total knee prosthesis in anatomic alignment. No acute fracture. Preservation of the joint space. No sclerotic or destructive changes observed. SOFT TISSUES: Unremarkable. No soft tissue swelling or gas. No radiopaque foreign body. RAD/Knee 4 or More Views IMPRESSION: Total knee prosthesis in anatomic alignment. There is no acute osseous abnormality. Electronically Signed: Chuckie Herndon MD at 19:23 EST ,
== END | disposition home or self-care (01) ==
LOC: MTRAD 16:13
PROVIDERS: PCP Family Medicine; Referring Provider Physician Assistant Surgical; Visit Provider Physician Assistant Surgical
DX: M25.561 Pain in right knee (principal); Z96.653 Presence of artificial knee joint, bilateral
CPT/HCPCS: 73564

== ENCOUNTER → 2022-10-14 | Outpatient (CLI) | payer OTHER, SELFPAY ==
[2022-10-14 18:07] LABS: Absolute Lymphocyte Count 1.62 X10^3/uL (0.83-4.51); Absolute Neutrophil Count 4.3 X10^3/uL (2.0-7.7); Basophil# 0.06 X10^3/uL; Basophil% 0.9 % (0-1); Eosinophil# 0.07 X10^3/uL; Eosinophils% 1.1 % (0-5); Hematocrit 43.4 % (37-47); Hemoglobin 14.3 g/dL (12.0-15.0); Lymphocyte # 1.62 X10^3/ul (0.83-4.51); Mean Corp Hgb Conc 32.9 g/dL (32-36); Mean Corpuscular Hgb 28.9 pg (27.0-32.0); Mean Corpuscular Volume 87.7 fL (81-99); Mean Platelet Vol. 9.5 fl (6.2-12.0); Monocyte# 0.45 X10^3/uL; Monocyte% 6.9 % (0-10); NRBC Flagged by Analyzer 0 % (0-5); Neutrophil # 4.27 X10^3/uL (2.7-7.7); Neutrophil % 65.9 % (47-70); Platelet Count 228 K/mm3 (150-450); RBC Distribution Width CV 13.2 % (11.6-14.6); RBC Distribution Width SD 41.9 fl (35.1-43.9); Red Blood Count 4.95 M/mm3 (4.2-5.4); White Blood Count 6.5 K/mm3 (4.4-11.0)
[2022-10-14 18:24] LABS: AST(SGOT) 21 U/L (15-37); Alanine Aminotransfer ALT/SGPT 32 U/L (13-56); Albumin, Serum 3.7 g/dL (3.2-5.0); Alkaline Phosphatase 68 U/L (45-117); Anion Gap 10 (5-15); BUN 17 mg/dL (7-18); BUN/Creat Ratio 12.8 RATIO (10-20); Calcium,Total 9.1 mg/dL (8.5-10.1); Chloride 107 mmol/L (98-107); Creatinine, Serum 1.33 mg/dL (0.55-1.02); EST Glomerular Filtration Rate 43 mL/min (>60); Est Glom Filt Rate - Afr Amer 52 mL/min (>60); Globulin 3.6 g/dL (2.2-4.2); Glucose 90 mg/dL (74-106); Potassium 3.5 mmol/L (3.5-5.1); Protein, Total 7.3 g/dL (6.4-8.2); Sodium Level 143 mmol/L (136-145)
[2022-10-14 18:25] LABS: Color, Urine Yellow (Yellow); Glucose, Dipstick Normal (Normal); Ketone-Dipstick 15 mg/dl (Negative); Leukocyte Esterase-Dipstick 25 /ul (Negative); Nitrite-Dipstick Negative (Negative); Occult Blood-Urine 150 /ul (Negative); Protein-Dipstick 15 mg/dl (Negative); Urine Bilirubin Dipstick Negative (Negative); Urine Clarity Clear (Clear); Urine Urobilinogen Normal (Normal)
[2022-10-14 18:36] LABS: Red Blood Cells-Urine 10-25 SEEN /hpf (0-5)
[2022-10-14 18:37] LABS: Bacteria 1+ /hpf (None Seen)
[2022-10-14 18:38] LABS: Mucous, Urine 1+ /hpf (<or=2+); Squamous Epithelial Cells - UA 0-5 SEEN /hpf (5-10); White Blood Cells 0-5 SEEN /hpf (0-5)
== END | disposition home or self-care (01) ==
PROVIDERS: PCP Family Medicine; Referring Provider Family Medicine; Visit Provider Family Medicine
DX: N12 Tubulo-interstitial nephritis, not specified as acute or chronic (principal)
CPT/HCPCS: 36415; 80053; 81001; 85025; 87086; 87088

== ENCOUNTER → 2022-10-14 | Outpatient (CLI) | payer OTHER, SELFPAY ==
--- NOTE | 2022-10-14 16:29 | CT_ITS ---
INDICATION: Suspected pyelonephritis. EXAMINATION: CT ABDOMEN AND PELVIS WITH CONTRAST - CT Abdomen And Pelvis W/ Contrast Injection TECHNIQUE: Helically acquired images were obtained of the abdomen and pelvis following IV contrast. A radiation dose optimization technique was used for this scan. IV Contrast dosage and agent: 100 mL of Isovue-300 Oral contrast: None. COMPARISON: June 16, 2015. FINDINGS: LOWER CHEST: Lung bases are clear. No cardiomegaly or pericardial effusion. LIVER: Liver is of normal size and contour. There are vague hypodensities in segment 2 and 4 8 cm) cysts. There is no enhancing mass GALLBLADDER AND BILIARY TREE: No calcified gallstones. No gallbladder distension or wall edema. No intra- or extrahepatic biliary ductal dilation. PANCREAS: No focal cystic or solid mass. SPLEEN: Normal size without focal cystic or solid mass. ADRENAL GLANDS: No nodules. KIDNEYS AND URETERS: Mild bilateral hydronephrosis. Parapelvic renal cysts.. There is no cortical abnormality to suggest pyelonephritis. Question minimal prominence of the left ureter when compared to the right. The right-sided hydronephrosis and ureterectasis to the prior study has resolved. PERITONEUM: No ascites or free air. No other fluid collection. BOWEL: Retrocardiac hiatal hernia. The stomach is otherwise unremarkable. Normal small intestine. Descending and sigmoid diverticulosis without acute inflammatory change. Normal appendix. LYMPH NODES: No enlarged mesenteric or retroperitoneal lymph nodes. VESSELS: Normal abdominal aorta. Normal IVC. URINARY BLADDER: There is a thrill millimeter calcification along the dependent wall of the urinary bladder without wall thickening or other bladder abnormality. I question recently passed stone. REPRODUCTIVE ORGANS: Status post hysterectomy. The vaginal cuff is unremarkable. There retained ovaries along the pelvic sidewall. The right appears to contain a small cyst/follicle. ABDOMINAL WALL: No discrete abdominal or pelvic wall hernia. BONES: Degenerative changes of the lumbar spine. CT/Abdomen/Pelvis WITH Contrast IMPRESSION: 1. No evidence of renal cortical abnormality to suggest pyelonephritis. 2. Small calcification seen in the bladder with mild prominence of the left ureter. Question recently passed stone. 3. Nonobstructing left renal calculus. 4. No other major interval change. Electronically Signed: Valeriy Diaz DO at 17:28 EST Reading Location ID and State: [facility] / [place] Tel [phone], Service support ,
== END | disposition home or self-care (01) ==
LOC: CT 16:29
PROVIDERS: PCP Family Medicine; Referring Provider Family Medicine; Visit Provider Family Medicine
DX: N12 Tubulo-interstitial nephritis, not specified as acute or chronic (principal)
CPT/HCPCS: 74177; Q9967

== ENCOUNTER → 2022-10-20 | Outpatient (CLI) | payer OTHER, SELFPAY ==
[2022-10-20 18:51] LABS: Anion Gap 9 (5-15); BUN 13 mg/dL (7-18); BUN/Creat Ratio 16.7 RATIO (10-20); Calcium,Total 9.5 mg/dL (8.5-10.1); Chloride 104 mmol/L (98-107); Creatinine, Serum 0.78 mg/dL (0.55-1.02); EST Glomerular Filtration Rate 80 mL/min (>60); Est Glom Filt Rate - Afr Amer 97 mL/min (>60); Glucose 82 mg/dL (74-106); Potassium 3.7 mmol/L (3.5-5.1); Sodium Level 142 mmol/L (136-145)
== END | disposition home or self-care (01) ==
LOC: MTLAB 15:00
PROVIDERS: PCP Family Medicine; Referring Provider Family Medicine; Visit Provider Family Medicine
DX: N28.9 Disorder of kidney and ureter, unspecified (principal)
CPT/HCPCS: 36415; 80048

== ENCOUNTER → 2023-05-23 | Outpatient (CLI) | payer OTHER, SELFPAY ==
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
== END | disposition home or self-care (01) ==
LOC: OPBI 12:10
PROVIDERS: PCP Family Medicine; Referring Provider Family Medicine; Visit Provider Family Medicine
DX: Z12.31 Encounter for screening mammogram for malignant neoplasm of breast (principal); Z80.3 Family history of malignant neoplasm of breast
CPT/HCPCS: 77063; 77067

== ENCOUNTER → 2024-01-14 | Outpatient (CLI) | payer OTHER, SELFPAY ==
--- NOTE | 2024-01-14 09:52 | CT_ITS ---
STUDY: CT RIGHT ANKLE WITHOUT CONTRAST REASON FOR EXAM: Female, 63 years old. RT ANKLE OA RADIATION DOSAGE (If Supplied By Facility): CTDIvol = ( 15.35 ) mGy, DLP = ( 461.22 ) mGycm TECHNIQUE: Thin section transaxial imaging of the ankle was obtained, with sagittal and coronal reconstructed images. Individualized dose optimization techniques were used for this CT. COMPARISON: None. FINDINGS: Metallic prosthesis at the old fracture site in the neck of the calcaneus with bony ankylosis across at least 50% of the fracture site. Mild narrowing of the talonavicular and posterior talocalcaneal articulations. A moderate-sized ventral calcaneal spur is present. Surgical anchoring screw and osteotomy defects seen in the lateral side of the navicular bone. Arthrodesis and hardware of the first TMT and metatarsal bone. No demonstrated hardware complications. Healed fracture deformity in the middle one third aspect of the second metatarsal bone. Normal remaining metatarsal bones and phalanges. No visualized acute fracture. No evidence of osteomyelitis. No fluid collections are present. A small ankle joint effusion is present. Normal visualized distal tibia and fibula. Normal tibiotalar articulation and talar dome. Normal navicular-cuneiform, cuneiform tarsal bones and intercuneiform articulations. Normal tarsometatarsal articulations and visualized metatarsi. The soft tissue structures are grossly normal. CT/Extremity Lower without Contra IMPRESSION: 1. Metallic prosthesis at the old fracture site in the neck of the calcaneus with bony ankylosis across at least 50% of the fracture site. Mild narrowing of the talonavicular and posterior talocalcaneal articulations. 2. A moderate-sized ventral calcaneal spur is present. Surgical anchoring screw and osteotomy defects seen in the lateral side of the navicular bone. Arthrodesis and hardware of the first TMT and metatarsal bone. No demonstrated hardware complications. Healed fracture deformity in the middle one third aspect of the second metatarsal bone Electronically Signed: Henrry Bridges MD at 16:07 EDT ,
== END | disposition home or self-care (01) ==
LOC: CT 09:40
PROVIDERS: PCP Family Medicine; Referring Provider Podiatrist; Visit Provider Podiatrist
DX: M19.021 Primary osteoarthritis, right elbow (principal)
CPT/HCPCS: 73700

== ENCOUNTER → 2024-05-24 | Outpatient (CLI) | payer OTHER, SELFPAY ==
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
== END | disposition home or self-care (01) ==
LOC: OPBI 16:17
PROVIDERS: PCP Family Medicine; Referring Provider Family Medicine; Visit Provider Family Medicine
DX: Z12.31 Encounter for screening mammogram for malignant neoplasm of breast (principal)
CPT/HCPCS: 77063; 77067

== ENCOUNTER → 2024-06-08 | Outpatient (CLI) | payer OTHER, SELFPAY ==
--- NOTE | 2024-06-08 15:03 | US_ITS ---
STUDY: ULTRASOUND BREAST - RIGHT REASON FOR EXAM: Female, 64 years old. Abnormal screening mammogram. TECHNIQUE: Axial and longitudinal images of the RIGHT breast were performed with a high resolution ultrasound transducer. # OF IMAGES: 50 COMPARISON: Comparison is made with prior mammogram dated May 24, 2024 and prior sonogram of the right breast dated March 22, 2022. FINDINGS: RIGHT Breast: The medial aspect of the right breast was examined with ultrasound. There is a 1.4 cm x 2.3 cm x 0.7 cm cystic structure with calcifications along its anterior wall. This may represent a complicated cyst. Drainage recommended. There is also evidence of a 1.6 cm x 2.1 cm x 0.7 cm cystic structure with rim-like calcification at the 3:00 position breast 5 cm from the nipple. US/Breast Limited Unilateral IMPRESSION: The mammographic findings correspond to cystic structures with mural calcification as described. Breast aspiration recommended. ASSESSMENT CATEGORY: BIRADS Category 4: Suspicious - Biopsy Should Be Considered. A letter regarding these results will be sent to the patient by the facility within 30 days. Electronically Signed: Juancarlos Garcia MD at 14:36 EDT ,
== END | disposition home or self-care (01) ==
LOC: OPUS 15:02
PROVIDERS: PCP Family Medicine; Referring Provider Surgery; Visit Provider Surgery
DX: R92.8 Other abnormal and inconclusive findings on diagnostic imaging of breast (principal)
CPT/HCPCS: 76642

== ENCOUNTER → 2024-07-02 | Outpatient (CLI) | payer OTHER, SELFPAY ==
--- OUTSIDE RECORDS SUMMARY | 2024-07-02 19:17 | XMS RPT_ITS | CCD ---
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 dose 0001 (New Bag - Provider: Rock Parisi, DOMENICO)0136 (Stopped - Provider: Rock Parisi RN) FOR RECORDS PERTAINING TO PATIENTS WHO ARE OR HAVE BEEN ENROLLED IN A CHEMICAL DEPENDENCY/SUBSTANCEABUSE PROGRAM, SOME INFORMATION MAY BE OMITTED. This clinical summary was aggregated from multiple sources. Caution should be exercised in using it in the provision of clinical care. This summary normalizes information from multiple sources, and as a consequence, information in this document may materially change the coding, format and clinical context of patient data. In addition, data may be omitted in some cases. CLINICAL DECISIONS SHOULD BE BASED ON THE PRIMARY CLINICAL RECORDS. [facility] [employer] [facility]. provides no warranty or guarantee of the accuracy or completeness of information in this document.
== END | disposition home or self-care (01) ==
LOC: LABSPEC 15:15
PROVIDERS: PCP Family Medicine; Referring Provider Surgery; Visit Provider Surgery
DX: R92.8 Other abnormal and inconclusive findings on diagnostic imaging of breast (principal); N64.4 Mastodynia
CPT/HCPCS: 87070; 87075; 87205

== ENCOUNTER → 2025-02-21 | Outpatient (CLI) | payer OTHER, SELFPAY ==
--- NOTE | 2025-02-21 15:30 | RAD_ITS ---
PROCEDURE: HAND MIN 3 VIEWS 02/21/2025 REASON FOR EXAM: TENDONITIS TECHNIQUE: HAND MIN 3 VIEWS COMPARISON: None. FINDINGS: Normal visualized carpal bones. Normal first metacarpus. Normal second through fifth metacarpi. Normal phalanges. There is no demonstrated fracture. Normal carpal articulations. Normal carpometacarpal (CMC) articulation of the thumb. Normal metacarpophalangeal (MCP) joint of the thumb. Normal interphalangeal (IP) joint of the thumb. Normal second through fifth carpometacarpal (CMC) joints. Normal second through fifth metacarpophalangeal (MCP) joints. Normal proximal interphalangeal (PIP) and distal interphalangeal (DIP) joints of the second through fifth fingers. RAD/Hand Min 3 Views IMPRESSION: No evidence for acute abnormality. Reading [facility]
--- OUTSIDE RECORDS SUMMARY | 2025-02-21 17:37 | XMS RPT_ITS | CCD ---
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 left upper intrinsics and Yes misalignment misalignment: C5, C6 and C7 Thoracic/Lumber: No thoracic and lumbar spine normal to inspection, Yes paraspinal tenderness bilaterally in the upper thoracic, in the lower thoracic and in the upper lumbar and on the right greater than left (lumbopelvic), Yes thoraco-lumbar spasm bilaterally (trap, levator) in the upper thoracic and in the mid thoracic and on the righ (more content not included)... Normal [facility]ropractic Reporton 2024 Chiropractic Report [facility] [address] [place] [address] OFFICE VISIT Date of Service: 01/01/25 MR#: [id number] Acct: [id number] Name: MEG DUFFY Rep #: [id number] : 1960 Provider: LAYNE Michael Age/Sex: 64/F Location: [facility] Status: Signed Intake Vital Signs 10/01/24 06:23 Height 5 ft 5 in Weight: 244 lb 4 oz BMI 40.6 BP 120/80 Position Sitting Pulse 87 Temp 97.7 F L Temp Source Oral Pulse Oximetry (%) 97 Oxygen Delivery Method room air Intake Visit Reasons: Back pain Chief Complaint: neck pain/low back Is patient in pain?: Yes (neck and low back ) Pain scale (1-10): 4 Allergies adhesive tape Adverse Reaction (Mild, Verified 01/01/25 16:35) itching Medications ???Medication ???Instructions ???Recorded ???Confirmed ???Type ascorbic acid (vitamin C) 500 mg 1,000 mg PO DAILY@0800 supplement 05/09/14 01/01/25 History tablet calcium 500 mg-vitamin D3 500 1 ea PO BID supplement 05/09/14 History unit-vitamin K 40 mcg chewable tablet tizanidine 4 mg tablet 4 mg PO QHS pain 11/14/14 01/01/25 History duloxetine 20 mg capsule,delayed 30 mg PO DAILY pain 05/15/1901/01 History release (Cymbalta) melatonin 3 mg capsule 3 mg PO HS sleep 05/15/19 01/01/25 History acetaminophen 500 mg tablet 1,000 mg (2 x 500 mg) PO Q8 01/01/25 Rx glucosamine sulf dipot 2 cap PO BID 04/17/21 01/01/25 His tory chlr,msm,chond 550 mg-C 30 mg-ronak 1 mg capsule (Glucosamine Chondroitin) cetirizine 10 mg capsule (Zyrtec) 10 mg PO DAILY #30 caps 04/25/21 01/01/25 Rx celecoxib 50 mg capsule (Celebrex) 200 mg PO DAILY pain 03/24/22 History PFSH Medical History Sinusitis DDD (degenerative disc disease), lumbar Knee pain, right History of back pain Post hysterectomy menopause Arthritis Deficiency of internal organs Polyneuropathy Surgical History S/P laparoscopic assisted vaginal hysterectomy (LAVH) H/O arthroscopy of right knee History of bunionectomy of left great toe H/O tubal ligation H/O hernia repair Hx of rotator cuff surgery History of surgical removal of ganglion cyst Total knee replacement status Family History Mother Breast cancer Dementia Father [...] activity do you participate in: none HPI Back pain Chief Complaint: Neck/Upper back pain Visit Number: 6 Details: Meg Duffy is a 64 year old F here to f/u on neck/ low back pain. Pt. c/o neck pain and stiffness that is equal bilaterally and extends into her upper back. She rates her pain 4/10 today and states it cracks often throughout the day. She states she holds her stress and tension in her neck but has noticed a decrease in her headaches since her last adjustment. She also complains of low back pain that is equal bilaterally. She rates her pain 3/10 and describes it as an achy pain. She has been sitting on bleachers for sports events a few times recently which has contributed to her low back pain. She denies new injury, numbness, tingling, or radiculopathy at this time. She treats pain at home with Tylenol and stretching as needed. She reports chiropractic adjustments and E-stim are helpful in alleviating her pain/discomfort but it gradually returns. Location: neck/low back Duration: frequent/intermitt ent Aggravating or associated factors: prolonged standing, sitting, stress, computer work Relieving factors: chiro Pain Quality: aching, dull and other (tight) Exam Musc General: Yes normal posture, normal gait, joint tenderness and decreased range of motion Cervical Spine: Yes loss of normal cervical lordosis, Yes cervical muscular tenderness bilateral lower paracervical muscle and trapezius, Yes cervical spasm bilateral lower trapezius, paracervical muscles and intrinsics, left upper intrinsics and Yes misalignment misalignment: C5, C6 and C7 Thoracic/Lumber: No thoracic and lumbar spine normal to inspection, Yes paraspinal tenderness bilaterally in the upper thoracic, in the lower thoracic and in the upper lumbar and on the right greater than left (lumbopelvic), Yes thoraco-lumbar spasm bilaterally (trap, levator) in the upper thoracic and in the mid thoracic an (more content not included)... Normal [facility] Reporton 2024 Chiropractic Report [facility] [place] [address] OFFICE VISIT Date of Service: 12/11/24 MR#: [id number] Acct: [id number] Name: MEG DUFFY Rep #: [id number] : 1960 Provider: LAYNE Michael Age/Sex: 64/F Location: [facility] Status: Signed Intake Vital Signs 06/04/24 15:26 10/01/24 06:23 Height 5 ft 5 in 5 ft 5 in Weight: 244 lb 4 oz BMI 40.6 BP 120/80 Position Sitting Pulse 87 Temp 97.7 F L Temp Source Oral Pulse Oximetry (%) 97 Oxygen Delivery Method room air Intake Visit Reasons: Back pain Chief Complaint: neck pain/low back Is patient in pain?: Yes (Neck, LBP) Pain scale (1-10): 2 Allergies adhesive tape Adverse Reaction (Mild, Verified 12/11/24 16:34) itching Medications ???Medication ???Instructions ???Recorded ???Confirmed ???Type ascorbic acid (vitamin C) 500 mg 1,000 mg PO DAILY@0800 supplement 05/09/14 12/11/24 History tablet calcium 500 mg-vitamin D3 500 1 ea PO BID supplement 05/09/14 History unit-vitamin K 40 mcg chewable tablet tizanidine 4 mg tablet 4 mg PO QHS pain 11/14/14 12/11/24 History duloxetine 20 mg capsule,delayed 30 mg PO DAILY pain 05/15/1912/11 History release (Cymbalta) melatonin 3 mg capsule 3 mg PO HS sleep 05/15/19 12/11/24 History acetaminophen 500 mg tablet 1,000 mg (2 x 500 mg) PO Q8 12/11/24 Rx glucosamine sulf dipot 2 cap PO BID 04/17/21 12/11/24 His tory chlr,msm,chond 550 mg-C 30 mg-ronak 1 mg capsule (Glucosamine Chondroitin) cetirizine 10 mg capsule (Zyrtec) 10 mg PO DAILY #30 caps 04/25/21 12/11/24 Rx celecoxib 50 mg capsule (Celebrex) 200 mg PO DAILY pain 03/24/22 History PFSH Medical History Sinusitis DDD (degenerative disc disease), lumbar Knee pain, right History of back pain Post hysterectomy menopause Arthritis Deficiency of internal organs Polyneuropathy Surgical History S/P laparoscopic assisted vaginal hysterectomy (LAVH) H/O arthroscopy of right knee History of bunionectomy of left great toe H/O tubal ligation H/O hernia repair Hx of rotator cuff surgery History of surgical removal of ganglion cyst Total knee replacement status Family History Mother Breast cancer Dementia Father [...] activity do you participate in: none HPI Back pain Chief Complaint: Neck/Upper back pain Visit Number: 5 Details: Meg Duffy is a 64 year old F here to f/u on neck/ low back pain. She reports continued improvement in her pain with her monthly adjustments. She complains of neck pain and stiffness that is equal bilaterally and extends into her upper back. She holds her stress and tension in her neck. She reports a decrease in her headaches since her last adjustment. She also complains of low back stiffness that is equal bilaterally. She rates her pain 2/10. She denies new injury, numbness, tingling, or radiculopathy at this time. She treats pain at home with Tylenol and stretching as needed. She reports chiropractic adjustments and E-stim are helpful in alleviating her pain/discomfort but it gradually returns. Location: neck/low back Duration: frequent/intermitt ent Aggravating or associated factors: prolonged standing, bending, stress, computer work Relieving factors: chiro Pain Quality: aching, dull and other (tight) Exam Musc General: Yes normal posture, normal gait, joint tenderness and decreased range of motion Cervical Spine: Yes loss of normal cervical lordosis, Yes cervical muscular tenderness bilateral lower paracervical muscle and trapezius, Yes cervical spasm bilateral lower trapezius, paracervical muscles and intrinsics, left upper intrinsics and Yes misalignment misalignment: C5, C6 and C7 Thoracic/Lumber: No thoracic and lumbar spine normal to inspection, Yes paraspinal tenderness bilaterally in the upper thoracic, in the lower thoracic, in the upper lumbar and in the lower lumbar and on the right greater than left (lumbopelvic), Yes thoraco-lumbar spasm bilaterally (trap, levator) in the upper thoracic and in the mid thoracic and on the right greater than left (QL) and Yes misalignment T3, T4, T5, T6, T11, T12, L1, L4, L5 and RIL Sa (more content not included)... Normal [facility] Chiropractic Reporton 2024 Chiropractic Report [facility] [address] [place] [address] OFFICE VISIT Date of Service: 11/20/24 MR#: [id number] Acct: [id number] Name: MEG DUFFY Rep #: [id number] : 1960 Provider: LAYNE Michael Age/Sex: 64/F Location: [facility] Status: Signed Intake Vital Signs 06/04/24 15:26 10/01/24 06:23 Height 5 ft 5 in 5 ft 5 in Weight: 244 lb 4 oz BMI 40.6 BP 120/80 Position Sitting Pulse 87 Temp 97.7 F L Temp Source Oral Pulse Oximetry (%) 97 Oxygen Delivery Method room air Intake Visit Reasons: Back pain Chief Complaint: neck pain/low back Is patient in pain?: Yes (Neck, LBP) Pain scale (1-10): 3 Allergies adhesive tape Adverse Reaction (Mild, Verified 11/20/24 16:37) itching Medications ???Medication ???Instructions ???Recorded ???Confirmed ???Type ascorbic acid (vitamin C) 500 mg 1,000 mg PO DAILY@0800 supplement 05/09/14 11/20/24 History tablet calcium 500 mg-vitamin D3 500 1 ea PO BID supplement 05/09/14 History unit-vitamin K 40 mcg chewable tablet tizanidine 4 mg tablet 4 mg PO QHS pain 11/14/14 11/20/24 History duloxetine 20 mg capsule,delayed 30 mg PO DAILY pain 05/15/1911/20 History release (Cymbalta) melatonin 3 mg capsule 3 mg PO HS sleep 05/15/19 11/20/24 History acetaminophen 500 mg tablet 1,000 mg (2 x 500 mg) PO Q8 11/20/24 Rx glucosamine sulf dipot 2 cap PO BID 04/17/21 11/20/24 His tory chlr,msm,chond 550 mg-C 30 mg-ronak 1 mg capsule (Glucosamine Chondroitin) cetirizine 10 mg capsule (Zyrtec) 10 mg PO DAILY #30 caps 04/25/21 11/20/24 Rx celecoxib 50 mg capsule (Celebrex) 200 mg PO DAILY pain 03/24/22 History PFSH Medical History Sinusitis DDD (degenerative disc disease), lumbar Knee pain, right History of back pain Post hysterectomy menopause Arthritis Deficiency of internal organs Polyneuropathy Surgical History S/P laparoscopic assisted vaginal hysterectomy (LAVH) H/O arthroscopy of right knee History of bunionectomy of left great toe H/O tubal ligation H/O hernia repair Hx of rotator cuff surgery History of surgical removal of ganglion cyst Total knee replacement status Family History Mother Breast cancer Dementia Father [...] activity do you participate in: none HPI Back pain Chief Complaint: Neck/Upper back pain Visit Number: 4 Details: Meg Duffy is a 64 year old F here to f/u on neck/ low back pain. She reports improvement in her pain since her last adjustment. She did have an episode of increased bilateral mid-low back pain a few weeks ago that lasted for 3 days before it finally let up. She complains of neck pain and stiffness that is equal bilaterally. She holds her stress and tension in her neck. She has been experiencing headaches frequently. She rates her pain 3/10. She states her low back has been feeling good recently. She denies new injury, numbness, tingling, or radiculopathy at this time. She treats pain at home with Tylenol and stretching as needed. She reports chiropractic adjustments and E-stim are helpful in alleviating her pain/discomfort but it gradually returns. Location: neck/low back Duration: frequent/intermitt ent Aggravating or associated factors: prolonged standing, bending, stress, computer work Relieving factors: chiro Pain Quality: aching, dull and other (tight) Exam Musc General: Yes normal posture, normal gait, joint tenderness and decreased range of motion Cervical Spine: Yes loss of normal cervical lordosis, Yes cervical muscular tenderness bilateral lower paracervical muscle and trapezius, Yes cervical spasm bilateral lower trapezius, paracervical muscles and intrinsics, left upper intrinsics and Yes misalignment misalignment: C5, C6 and C7 Thoracic/Lumber: No thoracic and lumbar spine normal to inspection, Yes paraspinal tenderness bilaterally in the upper thoracic, in the lower thoracic, in the upper lumbar and in the lower lumbar and on the right greater than left (lumbopelvic), Yes thoraco-lumbar spasm bilaterally (trap, levator) in the upper thoracic and in the mid thoracic and on the right greater than left (QL) and Yes misalign (more content not included)... Normal [facility] Chiropractic Reporton 2024 Chiropractic Report [facility] [address] [id number] OFFICE VISIT Date of Service: 10/30/24 MR#: [id number] Acct: [id number] Name: MEG DUFFY Rep #: [id number] : 1960 Provider: LAYNE Michael Age/Sex: 64/F Location: [facility] Status: Signed Intake Vital Signs 06/04/24 15:26 10/01/24 06:23 Height 5 ft 5 in 5 ft 5 in Weight: 244 lb 4 oz BMI 40.6 BP 120/80 Position Sitting Pulse 87 Temp 97.7 F L Temp Source Oral Pulse Oximetry (%) 97 Oxygen Delivery Method room air Intake Visit Reasons: Back pain Chief Complaint: neck pain/low back Is patient in pain?: Yes (left thoracic area) Pain scale (1-10): 6 Allergies adhesive tape Adverse Reaction (Mild, Verified 10/30/24 16:36) itching Medications ???Medication ???Instructions ???Recorded ???Confirmed ???Type ascorbic acid (vitamin C) 500 mg 1,000 mg PO DAILY@0800 supplement 05/09/14 10/30/24 History tablet calcium 500 mg-vitamin D3 500 1 ea PO BID supplement 05/09/14 History unit-vitamin K 40 mcg chewable tablet tizanidine 4 mg tablet 4 mg PO QHS pain 11/14/14 10/30/24 History duloxetine 20 mg capsule,delayed 30 mg PO DAILY pain 05/15/1910/30 History release (Cymbalta) melatonin 3 mg capsule 3 mg PO HS sleep 05/15/19 10/30/24 History acetaminophen 500 mg tablet 1,000 mg (2 x 500 mg) PO Q8 10/30/24 Rx glucosamine sulf dipot 2 cap PO BID 04/17/21 10/30/24 His tory chlr,msm,chond 550 mg-C 30 mg-ronak 1 mg capsule (Glucosamine Chondroitin) cetirizine 10 mg capsule (Zyrtec) 10 mg PO DAILY #30 caps 04/25/21 10/30/24 Rx celecoxib 50 mg capsule (Celebrex) 200 mg PO DAILY pain 03/24/22 History PFSH Medical History Sinusitis DDD (degenerative disc disease), lumbar Knee pain, right History of back pain Post hysterectomy menopause Arthritis Deficiency of internal organs Polyneuropathy Surgical History S/P laparoscopic assisted vaginal hysterectomy (LAVH) H/O arthroscopy of right knee History of bunionectomy of left great toe H/O tubal ligation H/O hernia repair Hx of rotator cuff surgery History of surgical removal of ganglion cyst Total knee replacement status Family History Mother Breast cancer Dementia Father [...] activity do you participate in: none HPI Back pain Chief Complaint: Neck/Upper back pain Visit Number: 3 Details: Meg Duffy is a 64 year old F here to f/u on neck/ low back pain. Pt. states her left thoracic spine under her ribs flared up Tuesday morning. She states the pain was severe as to take her breath away. She is unsure of the cause. She rates her pain 6/10 and states it is still sore and tender to touch. She complains of neck stiffness that is equal bilaterally. 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 She states her low back has been feeling good recently. She denies new injury, numbness, tingling, or radiculopathy at this time. She treats pain at home with Tylenol and stretching as needed. She reports chiropractic adjustments and E-stim are helpful in alleviating her pain/discomfort but it gradually returns. Location: neck/low back Duration: frequent/intermitt ent Aggravating or associated factors: prolonged standing, bending, stress, computer work Relieving factors: chiro Pain Quality: aching, dull and other (tight) Exam Musc General: Yes normal posture, normal gait, joint tenderness and decreased range of motion Cervical Spine: Yes loss of normal cervical lordosis, Yes cervical muscular tenderness bilateral lower , Yes cervical spasm bilateral lower trapezius, paracervical muscles and intrinsics, left upper intrinsics and Yes misalignment misalignment: C1, C2, C5, C6 and C7 Thoracic/Lumber: No thoracic and lumbar spine normal to inspection, Yes paraspinal tenderness bilaterally in the upper thoracic and in the mid thoracic and on the right greater than left (lumbopelvic), Yes thoraco-lumbar spasm bilaterally (trap, levator) in the upper thoracic and in the mid thoracic and on the right greater than left (QL) and Yes misalignment T3, T4, T5, T6, T1 (more content not included)... Normal [facility] Chiropractic Reporton 2024 Chiropractic Report [facility] [place] [address] OFFICE VISIT Date of Service: 10/09/24 MR#: [id number] Acct: [id number] Name: MEG DUFFY Rep #: [id number] : 1960 Provider: LAYNE Michael Age/Sex: 64/F Location: [facility] Status: Signed Intake Vital Signs 06/04/24 15:26 01/27/25 06:23 Height 5 ft 5 in 5 ft 5 in Intake Visit Reasons: Back pain Chief Complaint: neck pain/low back Allergies adhesive tape Adverse Reaction (Mild, Verified 10/09/24 16:36) itching Medications ???Medication ???Instructions ???Recorded ???Confirmed ???Type ascorbic acid (vitamin C) 500 mg 1,000 mg PO DAILY@0800 supplement 05/09/14 10/09/24 History tablet calcium 500 mg-vitamin D3 500 1 ea PO BID supplement 05/09/14 History unit-vitamin K 40 mcg chewable tablet tizanidine 4 mg tablet 4 mg PO QHS pain 11/14/14 10/09/24 History duloxetine 20 mg capsule,delayed 30 mg PO DAILY pain 05/15/1910/09 History release (Cymbalta) melatonin 3 mg capsule 3 mg PO HS sleep 05/15/19 10/09/24 History acetaminophen 500 mg tablet 1,000 mg (2 x 500 mg) PO Q8 10/09/24 Rx glucosamine sulf dipot 2 cap PO BID 04/17/21 10/09/24 His tory chlr,msm,chond 550 mg-C 30 mg-ronak 1 mg capsule (Glucosamine Chondroitin) cetirizine 10 mg capsule (Zyrtec) 10 mg PO DAILY #30 caps 04/25/21 10/09/24 Rx celecoxib 50 mg capsule (Celebrex) 200 mg PO DAILY pain 03/24/22 History PFSH Medical History Sinusitis DDD (degenerative disc disease), lumbar Knee pain, right History of back pain Post hysterectomy menopause Arthritis Deficiency of internal organs Polyneuropathy Surgical History S/P laparoscopic assisted vaginal hysterectomy (LAVH) H/O arthroscopy of right knee History of bunionectomy of left great toe H/O tubal ligation H/O hernia repair Hx of rotator cuff surgery History of surgical removal of ganglion cyst Total knee replacement status Family History Mother Breast cancer Dementia Father [...] activity do you participate in: none HPI Back pain Chief Complaint: Neck/Upper back pain Visit Number: 2 Details: Meg Duffy is a 64 year old F here to f/u on neck/ low back pain. She states her last adjustment was effective in alleviating her pain and stiffness but it has gradually returned. She reports an increase in her neck pain since her last adjustment. She complains of neck stiffness that is equal bilaterally. She reports frequent headaches. 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 She also complains of low back stiffness. She denies new injury, numbness, tingling, or radiculopathy at this time. She treats pain at home with Tylenol and stretching as needed. She reports chiropractic adjustments and E-stim are helpful in alleviating her pain/discomfort but it gradually returns. Location: neck/low back Duration: frequent/intermitt ent Aggravating or associated factors: prolonged standing, bending, stress, computer work Relieving factors: chiro Pain Quality: aching, dull and other (tight) Exam Musc General: Yes normal posture, normal gait, joint tenderness and decreased range of motion Cervical Spine: Yes loss of normal cervical lordosis, Yes cervical muscular tenderness bilateral diffuse , Yes cervical spasm bilateral lower trapezius, paracervical muscles and intrinsics, left upper intrinsics and Yes misalignment misalignment: C1, C2, C5, C6 and C7 Thoracic/Lumber: No thoracic and lumbar spine normal to inspection, Yes paraspinal tenderness bilaterally in the upper thoracic and in the mid thoracic and on the right greater than left (lumbopelvic), Yes thoraco-lumbar spasm bilaterally (trap, levator) in the upper thoracic and in the mid thoracic and on the right greater than left (QL) and Yes misalignment T3, T4, T5, T6, T11, T12, L1, L4, L5 and RIL Sacroiliac joints: on the right tender to palpation Office Procedures Procedures - Chiropractic Procedures Manipulation: Cervical C6, Lumbar L4, Thoracic T3 and T6 and Pelvis RIL Manipulation: 3-4 regions Electronic Stimulation: Yes Electrica (more content not included)... Normal 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 Results POC CEPH COV,FluAB,RSV PCR CEPHEID COVID PCR Not DETECTED Last Edit by Annita Medina MA on 10/01/24 07:11 CEPHEID FLU AB PCR NOT DETECTED FLU A B Last Edit by Annita Medina MA on 10/01/24 07:11 CEPHEID RSV PCR NOT DETECTED Last Edit by Annita Medina MA on 10/01/24 07:11 Assessment and Plan Plan Details Goals Barriers: Goals Decrease pain Decrease spasm Improve function Barriers Work requirements DDD 10/01/24 0811 Date Bakari AIKEN [facility] Signature: Date (if applicable) CC: Normal [facility] Urgent Care Visit Reporton 0 10-01-2024 Urgent Care Visit Report [facility] [address] , [address] [place] [address] OFFICE VISIT Date of Service: 10/01/24 MR#: [id number] Acct: [id number] Name: MEG DUFFY Rep #: [id number] : 1960 Provider: NELLI José Age/Sex: 64/F Location: [facility] Status: Signed Intake Vital Signs 06/04/24 15:26 10/01/24 06:23 Height 5 ft 5 in 5 ft 5 in Weight: 244 lb 4 oz BMI 40.6 BP 120/80 Position Sitting Pulse 87 Temp 97.7 F L Temp Source Oral Pulse Oximetry (%) 97 Oxygen Delivery Method room air Intake Visit Reasons: sore throat, congestion Allergies adhesive tape Adverse Reaction (Mild, Verified 10/01/24 06:23) itching Medications ???Medication ???Instructions ???Recorded ???Confirmed ???Type ascorbic acid (vitamin C) 500 mg 1,000 mg PO DAILY@0800 supplement 05/09/14 10/01/24 History tablet calcium 500 mg-vitamin D3 500 1 ea PO BID supplement 05/09/14 10/01/24 History unit-vitamin K 40 mcg chewable tablet tizanidine 4 mg tablet 4 mg PO QHS pain 11/14/14 10/01/24 History duloxetine 20 mg capsule,delayed 30 mg PO DAILY pain 05/15/19 10/01/24 History release (Cymbalta) melatonin 3 mg capsule 3 mg PO HS sleep 05/15/19 10/01/24 History acetaminophen 500 mg tablet 1,000 mg (2 x 500 mg) PO Q8 08/23/19 10/01/24 Rx glucosamine sulf dipot 2 cap PO BID 04/17/21 10/01/24 History chlr,msm,chond 550 mg-C 30 mg-ronak 1 mg capsule (Glucosamine Chondroitin) cetirizine 10 mg capsule (Zyrtec) 10 mg PO DAILY #30 caps 04/25/21 10/01/24 Rx celecoxib 50 mg capsule (Celebrex) 200 mg PO DAILY pain 03/24/22 10/01/24 History Nurse's Note: Patient has ST, congestion,ALMEIDA, ears popping and sinus drainage PFSH Medical History Sinusitis DDD (degenerative disc disease), lumbar Knee pain, right History of back pain Post hysterectomy menopause Arthritis Deficiency of internal organs Polyneuropathy Surgical History S/P laparoscopic assisted vaginal hysterectomy (LAVH) H/O arthroscopy of right knee History of bunionectomy of left great toe H/O tubal ligation H/O hernia repair Hx of rotator cuff surgery History of surgical removal of ganglion cyst Total knee replacement status Family History Mother Breast cancer Dementia Father [...] do you participate in: none HPI HPI Details: MEG DUFFY, is a 64 F who presents to the office today for [facility] evaluation at the [facility] for approximately 1 week history of persistent congestion with postnasal drip and headache and sinus pressure and sore/irritated throat. No c/o fever, chills, cough, myalgias, fatigue, nausea, and diarrhea. Patient notes no complaints of chest pain or shortness of breath or dyspnea on exertion. Several close contacts recently dx???d w/ similar URI complaints. No [id number] taken to assist. No other associated symptoms and no other alleviating/aggrav ating factors. ROS Const Constitutional: No other (As above) Exam Const General: cooperative, healthy appearing and no acute distress Orientation: alert, awake and oriented x3 HENMT Head: normal to inspection Ears: hearing grossly normal bilaterally, external ears normal, TM's normal bilaterally and EAC's normal Nose: external nose normal, nares normal, septum normal and clear nasal discharge Face and sinus: normal facial exam, sinuses nontender and face symmetric Mouth: oral mucosae normal, lip normal, tongue normal and oropharynx normal Throat: posterior oropharynx normal, tonsils normal, uvula midline and no postnasal drainage Eyes General: appearance normal, both eyes and all related structures Neck Neck: normal visual inspection, full ROM, no lymphadenopathy, no meningeal signs and supple Neck mass: No Thyroid: thyroid normal Lymphatic: no lymphadenopathy noted Chest Chest palpation inspection: normal inspection of the chest Resp Effort Inspection: normal respiratory effort, able to speak in complete sentences and no unsolicited cough during today's exam Auscultation: Bilateral: Clear to Auscultation Cardio Palpation: normal PMI Rate: tachycardic Rhythm: regular rhythm Heart Sounds: S1 normal, S2 normal, no gallops, no murmurs and no rubs Pulses: ra (more content not included)... Normal [facility] Chiropractic Reporton 2024 Chiropractic Report [facility] [place] [place] [address] OFFICE VISIT Date of Service: 09/17/24 MR#: [id number] Acct: [id number] Name: MEG DUFFY Rep #: [id number] : 1960 Provider: LAYNE Michale Age/Sex: 64/F Location: [facility] Status: Signed Intake Vital Signs 06/04/24 15:26 Height 5 ft 5 in Weight: 242 lb BMI 40.2 BP 150/102 H Blood Pressure Location Rt brachial Position Sitting Respiration 16 Intake Visit Reasons: Back pain Chief Complaint: neck pain/low back Allergies adhesive tape Adverse Reaction (Mild, Verified 09/17/24 16:34) itching Medications ???Medication ???Instructions ???Recorded ???Confirmed ???Type ascorbic acid (vitamin C) 500 mg 1,000 mg PO DAILY@0800 supplement 05/09/14 09/17/24 History tablet calcium 500 mg-vitamin D3 500 1 ea PO BID supplement 05/09/14 09/17/24 History unit-vitamin K 40 mcg chewable tablet tizanidine 4 mg tablet 4 mg PO QHS pain 11/14/14 09/17/24 History duloxetine 20 mg capsule,delayed 30 mg PO DAILY pain 05/15/19 09/17/24 History release (Cymbalta) melatonin 3 mg capsule 3 mg PO HS sleep 05/15/19 09/17/24 History acetaminophen 500 mg tablet 1,000 mg (2 x 500 mg) PO Q8 08/23/19 09/17/24 Rx glucosamine sulf dipot 2 cap PO BID 04/17/21 09/17/24 History chlr,msm,chond 550 mg-C 30 mg-ronak 1 mg capsule (Glucosamine Chondroitin) cetirizine 10 mg capsule (Zyrtec) 10 mg PO DAILY #30 caps 04/25/21 09/17/24 Rx celecoxib 50 mg capsule (Celebrex) 200 mg PO DAILY pain 03/24/22 09/17/24 History PFSH Medical History Sinusitis DDD (degenerative disc disease), lumbar Knee pain, right History of back pain Post hysterectomy menopause Arthritis Deficiency of internal organs Polyneuropathy Surgical History S/P laparoscopic assisted vaginal hysterectomy (LAVH) H/O arthroscopy of right knee History of bunionectomy of left great toe H/O tubal ligation H/O hernia repair Hx of rotator cuff surgery History of surgical removal of ganglion cyst Total knee replacement status Family History Mother Breast cancer Dementia Father [...] activity do you participate in: none HPI Back pain Chief Complaint: Neck/Upper back pain Visit Number: 1 Details: Meg Duffy is a 64 year old F here to f/u on neck/ low back pain. She states her last adjustment was effective in alleviating her pain and stiffness but it has gradually returned. She complains of neck stiffness that is equal bilaterally. She holds a lot stress and tension in her neck. She also complains of low back stiffness. She denies pain today. She denies new injury, numbness, tingling, or radiculopathy at this time. She treats pain at home with Tylenol and stretching as needed. She reports chiropractic adjustments and E-stim are helpful in alleviating her pain/discomfort but it gradually returns. Location: neck/low back Duration: intermittent Aggravating or associated factors: prolonged standing, bending, stress, computer work Relieving factors: chiro Pain Quality: aching, dull and other (tight) Exam Musc General: Yes normal posture, normal gait, joint tenderness and decreased range of motion Cervical Spine: Yes loss of normal cervical lordosis, Yes cervical muscular tenderness bilateral lower , Yes cervical spasm bilateral lower trapezius, paracervical muscles and intrinsics, left upper intrinsics and Yes misalignment misalignment: C1, C2, C5, C6 and C7 Thoracic/Lumber: No thoracic and lumbar spine normal to inspection, Yes paraspinal tenderness bilaterally in the upper thoracic and in the mid thoracic and on the right greater than left (lumbopelvic), Yes thoraco-lumbar spasm bilaterally (trap, levator) in the upper thoracic and in the mid thoracic and on the right greater than left (QL) and Yes misalignment T3, T4, T5, T6, T11, T12, L1, L4, L5 and RIL Sacroiliac joints: on the right tender to palpation Office Procedures Procedures - Chiropractic Procedures Manipulation: Cervical C6, Lumbar L4, Thoracic T3 and T6 and Pelvis RIL Manipulation: 3-4 regions Electronic Stimulation: Yes Electrical Stimulation: Cervical 15 mins (11) mA Therapy Performed by:: Cyndee Morales (more content not included)... Normal [facility] Chiropractic Reporton 2023 Chiropractic Report [facility] [place] [place] [address] OFFICE VISIT Date of Service: 08/27/24 MR#: [id number] Acct: [id number] Name: MEG DUFFY Rep #: [id number] : 1960 Provider: LAYNE Michael Age/Sex: 64/F Location: [facility] Status: Signed Intake Vital Signs 03/24/22 10:06 06/04/24 15:26 Height 5 ft 5 in 5 ft 5 in Intake Visit Reasons: Back pain Chief Complaint: neck pain/low back Is patient in pain?: Yes (Neck, LBP) Pain scale (1-10): 1 Allergies adhesive tape Adverse Reaction (Mild, Verified 08/27/24 16:30) itching Medications ???Medication ???Instructions ???Recorded ???Confirmed ???Type ascorbic acid (vitamin C) 500 mg 1,000 mg PO DAILY@0800 supplement 05/09/14 08/27/24 History tablet calcium 500 mg-vitamin D3 500 1 ea PO BID supplement 05/09/14 08/27/24 History unit-vitamin K 40 mcg chewable tablet tizanidine 4 mg tablet 4 mg PO QHS pain 11/14/14 08/27/24 History duloxetine 20 mg capsule,delayed 30 mg PO DAILY pain 05/15/19 08/27/24 History release (Cymbalta) melatonin 3 mg capsule 3 mg PO HS sleep 05/15/19 08/27/24 History acetaminophen 500 mg tablet 1,000 mg (2 x 500 mg) PO Q8 08/23/19 08/27/24 Rx glucosamine sulf dipot 2 cap PO BID 04/17/21 08/27/24 History chlr,msm,chond 550 mg-C 30 mg-ronak 1 mg capsule (Glucosamine Chondroitin) cetirizine 10 mg capsule (Zyrtec) 10 mg PO DAILY #30 caps 04/25/21 08/27/24 Rx celecoxib 50 mg capsule (Celebrex) 200 mg PO DAILY pain 03/24/22 08/27/24 History PFSH Medical History Sinusitis DDD (degenerative disc disease), lumbar Knee pain, right History of back pain Post hysterectomy menopause Arthritis Deficiency of internal organs Polyneuropathy Surgical History S/P laparoscopic assisted vaginal hysterectomy (LAVH) H/O arthroscopy of right knee History of bunionectomy of left great toe H/O tubal ligation H/O hernia repair Hx of rotator cuff surgery History of surgical removal of ganglion cyst Total knee replacement status Family History Mother Breast cancer Dementia Father [...] activity do you participate in: none HPI Back pain Chief Complaint: Neck/Upper back pain Visit Number: 17 Details: Meg Duffy is a 64 year old F here to f/u on neck/ low back pain. She states her last adjustment was effective in alleviating her pain but it has gradually returned. She complains of neck pain and stiffness that is worse when she is stressed out. She complains of minimal low back pain. She rates her pain 09/14. She denies new injury, numbness, tingling, or radiculopathy at this time. She treats pain at home with Tylenol and stretching as needed. She reports chiropractic adjustments and E-stim are helpful in alleviating her pain/discomfort but it gradually returns. Location: neck/low back Duration: intermittent Aggravating or associated factors: prolonged standing, bending, stress, computer work Relieving factors: chiro Pain Quality: aching, dull and other (tight) Exam Musc General: Yes normal posture, normal gait, joint tenderness and decreased range of motion Cervical Spine: Yes loss of normal cervical lordosis, Yes cervical muscular tenderness bilateral lower , Yes cervical spasm bilateral lower trapezius, paracervical muscles and intrinsics, left upper intrinsics and Yes misalignment misalignment: C1, C2, C5, C6 and C7 Thoracic/Lumber: No thoracic and lumbar spine normal to inspection, Yes paraspinal tenderness bilaterally in the upper thoracic and in the mid thoracic and on the right greater than left (lumbopelvic), Yes thoraco-lumbar spasm bilaterally (trap, levator) in the upper thoracic and in the mid thoracic and on the right greater than left (QL) and Yes misalignment T3, T4, T5, T6, T11, T12, L1, L4, L5 and RIL Sacroiliac joints: on the right tender to palpation Office Procedures Procedures - Chiropractic Procedures Manipulation: Cervical C6, Lumbar L4, Thoracic T3 and T6 and Pelvis RIL Manipulation: 3-4 regions Electronic Stimulation: Yes Electrical Stimulation: Cervical 15 mins (11) mA Therapy Performed by:: Cyndee Ellis Traction, Mechanical: Yes Hot and/or cold packs: No Patient Response: positive A (more content not included)... Normal [facility] Chiropractic Reporton 2023 Chiropractic Report [facility] [place] [place] [address] OFFICE VISIT Date of Service: 08/09/24 MR#: [id number] Acct: [id number] Name: MEG DUFFY Rep #: [id number] : 1960 Provider: LAYNE Michael Age/Sex: 64/F Location: [facility] Status: Signed Intake Vital Signs 03/24/22 10:06 06/04/24 15:26 Height 5 ft 5 in 5 ft 5 in Intake Visit Reasons: Back pain Chief Complaint: neck pain/low back Allergies adhesive tape Adverse Reaction (Mild, Verified 08/09/24 16:33) itching Medications ???Medication ???Instructions ???Recorded ???Confirmed ???Type ascorbic acid (vitamin C) 500 mg 1,000 mg PO DAILY@0800 supplement 05/09/14 08/09/24 History tablet calcium 500 mg-vitamin D3 500 1 ea PO BID supplement 05/09/14 08/09/24 History unit-vitamin K 40 mcg chewable tablet tizanidine 4 mg tablet 4 mg PO QHS pain 11/14/14 08/09/24 History duloxetine 20 mg capsule,delayed 30 mg PO DAILY pain 05/15/19 08/09/24 History release (Cymbalta) melatonin 3 mg capsule 3 mg PO HS sleep 05/15/19 08/09/24 History acetaminophen 500 mg tablet 1,000 mg (2 x 500 mg) PO Q8 08/23/19 08/09/24 Rx glucosamine sulf dipot 2 cap PO BID 04/17/21 08/09/24 History chlr,msm,chond 550 mg-C 30 mg-ronak 1 mg capsule (Glucosamine Chondroitin) cetirizine 10 mg capsule (Zyrtec) 10 mg PO DAILY #30 caps 04/25/21 08/09/24 Rx celecoxib 50 mg capsule (Celebrex) 200 mg PO DAILY pain 03/24/22 08/09/24 History PFSH Medical History Sinusitis DDD (degenerative disc disease), lumbar Knee pain, right History of back pain Post hysterectomy menopause Arthritis Deficiency of internal organs Polyneuropathy Surgical History S/P laparoscopic assisted vaginal hysterectomy (LAVH) H/O arthroscopy of right knee History of bunionectomy of left great toe H/O tubal ligation H/O hernia repair Hx of rotator cuff surgery History of surgical removal of ganglion cyst Total knee replacement status Family History Mother Breast cancer Dementia Father [...] activity do you participate in: none HPI Back pain Chief Complaint: Neck/Upper back pain Visit Number: 16 Details: Meg Duffy is a 64 year old F here to f/u on neck/ low back pain. She complains of stiffness in her neck, she does experience occasional headaches. Her low back continues to improve and she denies any low back pain today. She states stress makes her pain worse and work has been stressful lately. She denies new injury, numbness, tingling, or radiculopathy at this time. She treats pain at home with Tylenol and stretching as needed. She reports chiropractic adjustments and E-stim are helpful in alleviating her pain/discomfort but it gradually returns. Location: neck/low back Duration: intermittent Aggravating or associated factors: prolonged standing, bending, stress, computer work Relieving factors: chiro Pain Quality: aching, dull and other (tight) Exam Musc General: Yes normal posture, normal gait, joint tenderness and decreased range of motion Cervical Spine: Yes loss of normal cervical lordosis, Yes cervical muscular tenderness bilateral lower , Yes cervical spasm bilateral lower trapezius, paracervical muscles and intrinsics, left upper intrinsics and Yes misalignment misalignment: C1, C2, C5, C6 and C7 Thoracic/Lumber: No thoracic and lumbar spine normal to inspection, Yes paraspinal tenderness bilaterally in the upper thoracic and in the mid thoracic and on the right greater than left (lumbopelvic), Yes thoraco-lumbar spasm bilaterally (trap, levator) in the upper thoracic and in the mid thoracic and on the right greater than left (QL) and Yes misalignment T3, T4, T5, T6, T11, T12, L1, L4, L5 and RIL Sacroiliac joints: on the right tender to palpation Office Procedures Procedures - Chiropractic Procedures Manipulation: Cervical C6, Lumbar L4, Thoracic T3 and T6 and Pelvis RIL Manipulation: 3-4 regions Electronic Stimulation: Yes Electrical Stimulation: Cervical 15 mins (17) mA Therapy Performed by:: Cyndee Ellis Traction, Mechanical: Yes Hot and/or cold packs: No Patient Response: positive Assessment and Plan Assessment and Plan (1) Back pain: Status: Acute (more content not included)... Normal [facility] Chiropractic Reporton 2023 Chiropractic Report [facility] [address] [place] [address] OFFICE VISIT Date of Service: 07/19/24 MR#: [id number] Acct: [id number] Name: MEG DUFFY Rep #: [id number] : 1960 Provider: LAYNE Michael Age/Sex: 64/F Location: [facility] Status: Signed Intake Vital Signs 03/24/22 10:06 06/04/24 15:26 Height 5 ft 5 in 5 ft 5 in Intake Visit Reasons: Back pain Chief Complaint: neck pain/low back Is patient in pain?: Yes Pain scale (1-10): 5 Allergies adhesive tape Adverse Reaction (Mild, Verified 07/19/24 16:28) itching PFSH Medical History Sinusitis DDD (degenerative disc disease), lumbar Knee pain, right History of back pain Post hysterectomy menopause Arthritis Deficiency of internal organs Polyneuropathy Surgical History S/P laparoscopic assisted vaginal hysterectomy (LAVH) H/O arthroscopy of right knee History of bunionectomy of left great toe H/O tubal ligation H/O hernia repair Hx of rotator cuff surgery History of surgical removal of ganglion cyst Total knee replacement status Family History Mother Breast cancer Dementia Father [...] activity do you participate in: none HPI Back pain Chief Complaint: Neck/Upper back pain Visit Number: 15 Details: Meg Duffy is a 64 year old F here to f/u on neck/ low back pain. Pt. has c/o achiness and tightness in her BL neck but the R side is worse, denies limited ROM but does state she gets occasional headaches. She stated that work has been extremely busy and a bit stressful which exacerbates her neck discomfort. Her low back continues to improve and she denies any discomfort there today. She denies new injury, numbness, tingling, or radiculopathy at this time. She treats pain at home with Tylenol and stretching as needed. She reports chiropractic adjustments and E-stim are helpful in alleviating her pain/discomfort but it gradually returns. Location: neck/low back Duration: intermittent Aggravating or associated factors: prolonged standing, bending, twisting, computer work Relieving factors: chiro Pain Quality: aching, dull and other (tight) Exam Musc General: Yes normal posture, normal gait, joint tenderness and decreased range of motion Cervical Spine: Yes loss of normal cervical lordosis, Yes cervical muscular tenderness bilateral lower , Yes cervical spasm bilateral lower trapezius, paracervical muscles and intrinsics, left upper intrinsics and Yes misalignment misalignment: C1, C2, C5, C6 and C7 Thoracic/Lumber: No thoracic and lumbar spine normal to inspection, Yes paraspinal tenderness bilaterally in the upper thoracic and in the mid thoracic and on the right greater than left (lumbopelvic), Yes thoraco-lumbar spasm bilaterally (trap, levator) in the upper thoracic and in the mid thoracic and on the right greater than left (QL) and Yes misalignment T3, T4, T5, T6, T11, T12, L1, L4, L5 and RIL Sacroiliac joints: on the right tender to palpation Office Procedures Procedures - Chiropractic Procedures Manipulation: Cervical C6, Lumbar L4, Thoracic T3 and T6 and Pelvis RIL Manipulation: 3-4 regions Electronic Stimulation: Yes Electrical Stimulation: Cervical 15 mins (17) mA Therapy Performed by:: Dr. Beti Anthony DC Traction, Mechanical: Yes Patient Response: positive Assessment and Plan Assessment and Plan (1) Segmental and somatic dysfunction of lumbar region: Status: Acute (2) Segmental and somatic dysfunction of thoracic region: Status: Acute (3) Segmental and somatic dysfunction of cervical region: Status: Acute (4) DDD (degenerative disc disease), lumbar: Status: Chronic Qualifiers: Disc-related pain type: discogenic back pain only Qualified Code(s): M51.360 - Other intervertebral disc degeneration, lumbar region with discogenic back pain only (5) Segmental and somatic dysfunction of pelvic region: Status: Acute Orders: Orders Chiropractic Treatments 07/19/24 M51.360 - Other intervertebral disc degeneration, lumbar region with discogenic back pain only, M99.01 - Segmental and somatic dysfunction of cervical region, M99.02 - Segmental and somatic dysfunction of thoracic region, M99.03 - Segmental and somatic dysfunction of (more content not included)... Normal [facility] Culture, Anaerobic Any Sourc ike 07-08-2024 CUAN Right breast cyst fluid No growth in [address] [facility] Comment on above: Performed By: #### M 100.2000, M100.3000, M100.4001 ####[facility] [id number] [place], [address] Chiropractic Reporton [address] [facility] [address] [place] [id number] OFFICE VISIT Date of Service: 07/05/24 MR#: [id number] Acct: [id number] Name: MEG DUFFY Rep #: [id number] : 1960 Provider: LAYNE Michael Age/Sex: 64/F Location: [facility] Status: Signed Intake Vital Signs 03/24/22 10:06 06/04/24 15:26 Height 5 ft 5 in 5 ft 5 in Intake Visit Reasons: Back pain Chief Complaint: neck pain Is patient in pain?: Yes (neck ) Pain scale (1-10): 2 Allergies adhesive tape Adverse Reaction (Mild, Verified 07/05/24 16:11) itching Medications ???Medication ???Instructions ???Recorded ???Confirmed ???Type ascorbic acid (vitamin C) 500 mg 1,000 mg PO DAILY@0800 supplement 05/09/14 07/05/24 History tablet calcium 500 mg-vitamin D3 500 1 ea PO BID supplement 05/09/14 07/05/24 History unit-vitamin K 40 mcg chewable tablet tizanidine 4 mg tablet 4 mg PO QHS pain 11/14/14 07/05/24 History duloxetine 20 mg capsule,delayed 30 mg PO DAILY pain 05/15/19 07/05/24 History release (Cymbalta) melatonin 3 mg capsule 3 mg PO HS sleep 05/15/19 07/05/24 History acetaminophen 500 mg tablet 1,000 mg (2 x 500 mg) PO Q8 08/23/19 07/05/24 Rx glucosamine sulf dipot 2 cap PO BID 04/17/21 07/05/24 History chlr,msm,chond 550 mg-C 30 mg-ronak 1 mg capsule (Glucosamine Chondroitin) cetirizine 10 mg capsule (Zyrtec) 10 mg PO DAILY #30 caps 04/25/21 07/05/24 Rx celecoxib 50 mg capsule (Celebrex) 200 mg PO DAILY pain 03/24/22 07/05/24 History PFSH Medical History Sinusitis DDD (degenerative disc disease), lumbar Knee pain, right History of back pain Post hysterectomy menopause Arthritis Deficiency of internal organs Polyneuropathy Surgical History S/P laparoscopic assisted vaginal hysterectomy (LAVH) H/O arthroscopy of right knee History of bunionectomy of left great toe H/O tubal ligation H/O hernia repair Hx of rotator cuff surgery History of surgical removal of ganglion cyst Total knee replacement status Family History Mother Breast cancer Dementia Father [...] activity do you participate in: none HPI Back pain Chief Complaint: Neck/Upper back pain Visit Number: 14 Details: Meg Duffy is a 64 year old F here to f/u on neck pain. Pt. c/o mild neck pain and stiffness today. She states the right side of her neck is slightly worse than the left. She states she just returned from vacation and is feeling pretty good. Her low back has been improved since last visit. She denies new injury, numbness, tingling, or radiculopathy at this time. She treats pain at home with Tylenol and stretching as needed. She reports chiropractic adjustments and E-stim are helpful in alleviating her pain/discomfort but it gradually returns. Location: neck/low back Duration: intermittent Aggravating or associated factors: prolonged standing, bending, twisting, computer work Relieving factors: chiro Pain Quality: aching, dull and other (tight) Exam Musc General: Yes normal posture, normal gait, joint tenderness and decreased range of motion Cervical Spine: Yes loss of normal cervical lordosis, Yes cervical muscular tenderness right greater than left diffuse , Yes cervical spasm bilateral lower trapezius, paracervical muscles and intrinsics, left upper intrinsics and Yes misalignment misalignment: C1, C2, C5, C6 and C7 Thoracic/Lumber: No thoracic and lumbar spine normal to inspection, Yes paraspinal tenderness bilaterally in the upper thoracic and in the mid thoracic and on the right greater than left (lumbopelvic), Yes thoraco-lumbar spasm bilaterally (trap, levator) in the upper thoracic and in the mid thoracic and on the right greater than left (QL) and Yes misalignment T3, T4, T5, T6, T11, T12, L1, L4, L5 and RIL Sacroiliac joints: on the right tender to palpation Office Procedures Procedures - Chiropractic Procedures Manipulation: Cervical C6, Lumbar L4, Thoracic T3 and T6 and Pelvis RIL Manipulation: 3-4 regions Electronic Stimulation: Yes Electrical Stimulation: Cervical 15 mins (17) mA Therapy Performed by:: Gaviota Villalpando Traction, Mechanical: Yes Patient Response: positive Assessment and Plan Assessment and Plan (1) Se (more content not included)... Normal [facility] Surgery Visit Reporton 07-04 Surgery Visit Report [facility] [address] [place] [address] OFFICE VISIT Date of Service: 07/02/24 MR#: [id number] Acct: [id number] Name: MEG DUFFY Rep #: [id number] : 1960 Provider: Dr. Yesenia benitez MD Age/Sex: 64/F Location: [facility] Status: Signed Intake Vital Signs 06/04/24 15:26 Height 5 ft 5 in Weight: 242 lb BMI 40.2 BP 150/102 H Blood Pressure Location Rt brachial Position Sitting Respiration 16 Intake Visit Reasons: ASPIRATION OF BREAST CYST Chief Complaint: aspiration of breast cyst Allergies adhesive tape Adverse Reaction (Mild, Verified 06/04/24 15:27) itching PFSH Medical History Sinusitis DDD (degenerative disc disease), lumbar Knee pain, right History of back pain Post hysterectomy menopause Arthritis Deficiency of internal organs Polyneuropathy Surgical History S/P laparoscopic assisted vaginal hysterectomy (LAVH) H/O arthroscopy of right knee History of bunionectomy of left great toe H/O tubal ligation H/O hernia repair Hx of rotator cuff surgery History of surgical removal of ganglion cyst Total knee replacement status Family History Mother Breast cancer Dementia Father [...] do you participate in: none HPI HPI HPI: 64-year-old female presents for aspiration of right breast cyst. Office Procedures Biopsy Provider Documentation Patient's right breast cyst about 2 and 3:00 5 cm from nipple were aspirated after local anesthesia of 1% lidocaine with epinephrine using 18-gauge needle. Thick or yellow discharge was aspirated about 1 cc and half a cc. The 1 cc was sent for culture you know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 in VLDL [Mass/Vol] 16 mg/dL Normal 5-40 [facility] Comment on above: Performed By: #### L 100.0200, L500.2900 ####[facility] [address] [place], [address] CO2 [Moles/Vol] 24.0 mmol/L Normal 21.0-32.0 [facility] Comment on above: Performed By: #### L 100.0200, L500.2900 ####[facility] [address] [place], [address] Creatinine [Mass/Vol] 0.81 mg/dL Normal 0.55-1.02 [facility] Comment on above: Result Comment: The validity of the calculated GFR GFRAA in patients over 70 years has not been determined. Clinical correlation is essential. Performed By: #### L 100.0200, L500.2900 ####[facility] [address] [place], [address] EST GFR - AA 92 mL/min Normal >60 [facility] Comment on above: Result Comment: Afri can Beninese GFR Calc Performed By: #### L 100.0200, L500.2900 ####[facility] [address] [place], [address] GAP 7 Normal 5-15 [facility] Comment on above: Performed By: #### L 100.0200, L500.2900 ####[facility] [address] [place], [address] GFR/1.73 sq M.predicted among non-blacks MDRD (S/P/Bld) [Vol rate/Area] 76 mL/min/{1.73_m2} Normal >60 [facility] Comment on above: Result Comment: Non- GFR Calc Performed By: #### L 100.0200, L500.2900 ####[facility] [address] [place], [address] Globulin (S) [Mass/Vol] 3.4 g/dL Normal 2.2-4.2 [facility] Comment on above: Performed By: #### L 100.0200, L500.2900 ####[facility] [address] [place], [address] Glucose [Mass/Vol] 99 mg/dL Normal 74-106 [facility] Comment on above: Performed By: #### L 100.0200, L500.2900 ####[facility] [address] [place], [address] LDH 243 U/L Normal 84-246 [facility] Comment on above: Performed By: #### L 100.0200, L500.2900 ####[facility] [address] [place], [address] Phosphate [Mass/Vol] 3.9 mg/dL Normal 2.5-4.9 [facility] Comment on above: Performed By: #### L 100.0200, L500.2900 ####[facility] [address] [place], [address] Potassium [Moles/Vol] 3.7 mmol/L Normal 3.5-5.1 [facility] Comment on above: Performed By: #### L 100.0200, L500.2900 ####[facility] [address] [place], [address] Sodium [Moles/Vol] 140 mmol/L Normal 136-145 [facility] Comment on above: Performed By: #### L 100.0200, L500.2900 ####[facility] [address] [place], [address] T PROT 7.0 g/dL Normal 6.4-8.2 [facility] Comment on above: Performed By: #### L 100.0200, L500.2900 ####[facility] [address] [place], [address] Triglyceride [Mass/Vol] 80 mg/dL Normal [facility] Comment on above: Result Comment: The drugs N-Acetylcysteine and Metamizole may falsely depress this assay. Serum Triglycerides Reference Interval Normal <150 mg/dL Borderline high 150 - 199 mg/dL High 200 - 499 mg/dL Very High > or = 500 mg/dL Performed By: #### L 100.0200, L500.2900 ####[facility] [address] [place], [address] Urea nitrogen [Mass/Vol] 12 mg/dL Normal 7-18 [facility] Comment on above: Performed By: #### L 100.0200, L500.2900 ####[facility] [address] [place], [address] URIC 4.3 mg/dL Normal 2.6-6.0 [facility] Comment on above: Result Comment: The drugs N-Acetylcysteine and Metamizole may falsely depress this assay. Performed By: #### L 100.0200, L500.2900 ####[facility] [address] [place], [address] Chiropractic Reporton [address] [facility] [address] [place] [address] OFFICE VISIT Date of Service: 04/26/24 MR#: [id number] Acct: [id number] Name: MEG DUFFY Rep #: [id number] : 1960 Provider: LAYNE Michael Age/Sex: 63/F Location: [facility] Status: Signed Intake Vital Signs 03/24/22 10:06 Height 5 ft 5 in Intake Visit Reasons: Back pain Chief Complaint: neck and Upper back pain Allergies adhesive tape Adverse Reaction (Mild, Verified 04/03/24 16:45) itching [facility] Medical History Sinusitis DDD (degenerative disc disease), lumbar Knee pain, right History of back pain Post hysterectomy menopause Arthritis Deficiency of internal organs Polyneuropathy Surgical History S/P laparoscopic assisted vaginal hysterectomy (LAVH) H/O arthroscopy of right knee History of bunionectomy of left great toe H/O tubal ligation H/O hernia repair Hx of rotator cuff surgery History of surgical removal of ganglion cyst Total knee replacement status Family History Mother Breast cancer Dementia Father [...] activity do you participate in: none HPI Back pain Chief Complaint: Neck/Upper back pain Visit Number: 11 Details: Meg Duffy is a 63 year old F here to f/u on neck pain. Pt. advises she has been experiencing some mild neck pain recently. She rates her pain was 2/10 today. She states her mid back has been achy off and on especially on the right side. Low back discomfort is mild. She denies new injury, numbness, tingling, or radiculopathy at this time. She continues to treat pain at home with Tylenol and stretching as needed. She reports chiropractic adjustments and E-stim are helpful in alleviating her pain/discomfort but it gradually returns. Location: neck/low back Duration: frequent, intermittent Aggravating or associated factors: prolonged standing, bending, twisting, computer work Relieving factors: chiro Pain Quality: aching, dull and other (tight) Exam Musc General: Yes normal posture, normal gait, joint tenderness and decreased range of motion Cervical Spine: Yes loss of normal cervical lordosis, Yes cervical muscular tenderness bilateral lower , Yes cervical spasm bilateral lower trapezius, paracervical muscles and intrinsics, left upper intrinsics and Yes misalignment misalignment: C1, C2, C5, C6 and C7 Thoracic/Lumber: No thoracic and lumbar spine normal to inspection, Yes paraspinal tenderness bilaterally in the upper thoracic and in the mid thoracic and on the right greater than left (lumbopelvic), Yes thoraco-lumbar spasm bilaterally (trap, levator) in the upper thoracic and in the mid thoracic and on the right greater than left (QL) and Yes misalignment T3, T4, T5, T6, T11, T12, L1, L4, L5 and RIL Sacroiliac joints: on the right tender to palpation Office Procedures Procedures - Chiropractic Procedures Manipulation: Cervical C6, Lumbar L4, Thoracic T3 and T6 and Pelvis RIL Manipulation: 3-4 regions Electronic Stimulation: Yes Electrical Stimulation: Cervical 15 mins (16) mA Therapy Performed by:: Gaviota Villalpando Traction, Mechanical: Yes Patient Response: positive Assessment and Plan Assessment and Plan (1) DDD (degenerative disc disease), lumbar: Status: Chronic (2) Segmental and somatic dysfunction of pelvic region: Status: Acute (3) Segmental and somatic dysfunction of cervical region: Status: Acute (4) Segmental and somatic dysfunction of thoracic region: Status: Acute (5) Segmental and somatic dysfunction of lumbar region: Status: Acute Orders: Orders Chiropractic Treatments 04/26/24 M51.36 - Other intervertebral disc degeneration, lumbar region, M54.2 - Cervicalgia, M54.50 - Low back pain, unspecified, M99.05 - Segmental and somatic dysfunction of pelvic region Plan Patient was treated without incident. Continue care as needed. Plan Details Goals Barriers: Goals Decrease pain Decrease spasm Improve function Barriers Work requirements DDD Follow Up: PRN Coding Level of Care Code No Charge Diagnoses DDD (degenerative disc disease), lumbar M51.36 Segmental and somatic dysfunction of pelvic region M99.05 Segmental and somatic dysfunction of cervical region M99.01 Seg (more content not included)... Normal [facility] Chiropractic Reporton 2023 Chiropractic Report [facility] [address] [place] [address] OFFICE VISIT Date of Service: 04/03/24 MR#: [id number] Acct: [id number] Name: MEG DUFFY Rep #: [id number] : 1960 Provider: LAYNE Michael Age/Sex: 63/F Location: [facility] Status: Signed Intake Vital Signs 03/24/22 10:06 Height 5 ft 5 in Intake Visit Reasons: Back pain Chief Complaint: neck and Upper back pain Is patient in pain?: Yes (neck ) Pain scale (1-10): 2 Allergies adhesive tape Adverse Reaction (Mild, Verified 04/03/24 16:45) itching Medications ???Medication ???Instructions ???Recorded ???Confirmed ???Type ascorbic acid (vitamin C) 500 mg 1,000 mg PO DAILY@0800 supplement 05/09/14 04/03/24 History tablet calcium-vitamin D3-vitamin K 500 1 ea PO BID supplement 05/09/14 04/03/24 History mg-500 unit-40 mcg chewable tablet tizanidine 4 mg tablet 4 mg PO QHS pain 11/14/14 04/03/24 History duloxetine 20 mg capsule,delayed 30 mg PO DAILY pain 05/15/19 04/03/24 History release (Cymbalta) melatonin 3 mg capsule 3 mg PO HS sleep 05/15/19 04/03/24 History acetaminophen 500 mg tablet 1,000 mg (2 x 500 mg) PO Q8 08/23/19 04/03/24 Rx glucosamine sulf dipot 2 cap PO BID 04/17/21 04/03/24 History chlr,msm,chond 550 mg-C 30 mg-ronak 1 mg capsule (Glucosamine Chondroitin) cetirizine 10 mg capsule (Zyrtec) 10 mg PO DAILY #30 caps 04/25/21 04/03/24 Rx celecoxib 50 mg capsule (Celebrex) 200 mg PO DAILY pain 03/24/22 04/03/24 History PFSH Medical History Sinusitis DDD (degenerative disc disease), lumbar Knee pain, right History of back pain Post hysterectomy menopause Arthritis Deficiency of internal organs Polyneuropathy Surgical History S/P laparoscopic assisted vaginal hysterectomy (LAVH) H/O arthroscopy of right knee History of bunionectomy of left great toe H/O tubal ligation H/O hernia repair Hx of rotator cuff surgery History of surgical removal of ganglion cyst Total knee replacement status Family History Mother Breast cancer Dementia Father [...] activity do you participate in: none HPI Back pain Chief Complaint: Neck/Upper back pain Visit Number: 10 Details: Meg Duffy is a 63 year old F here to f/u on neck and low back pain. Pt. advises her neck has been bothersome recently. She states is is very tight and tense especially on the right side. She states her pain was 6/10 last night but is 2/10 today. She states her low back is achy off and on. She denies new injury, numbness, tingling, or radiculopathy at this time. She continues to treat pain at home with Tylenol and stretching as needed. She reports chiropractic adjustments and E-stim are helpful in alleviating her pain/discomfort but it gradually returns. Location: neck/low back Duration: frequent, intermittent Aggravating or associated factors: prolonged standing, bending, twisting, computer work Relieving factors: chiro Pain Quality: aching, dull and other (tight) Exam Musc General: Yes normal posture, normal gait, joint tenderness and decreased range of motion Cervical Spine: Yes loss of normal cervical lordosis, Yes cervical muscular tenderness right greater than left lower , Yes cervical spasm bilateral lower trapezius, paracervical muscles and intrinsics, left upper intrinsics and Yes misalignment misalignment: C1, C2, C5, C6 and C7 Thoracic/Lumber: No thoracic and lumbar spine normal to inspection, Yes paraspinal tenderness bilaterally in the upper thoracic and in the mid thoracic and on the right greater than left (lumbopelvic), Yes thoraco-lumbar spasm bilaterally (trap, levator) in the upper thoracic and in the mid thoracic and on the right greater than left (QL) and Yes misalignment T3, T4, T5, T6, T11, T12, L1, L4, L5 and RIL Sacroiliac joints: on the right tender to palpation Office Procedures Procedures - Chiropractic Procedures Manipulation: Cervical C6, Lumbar L4, Thoracic T3 and T6 and Pelvis RIL Manipulation: 3-4 regions Electronic Stimulation: Yes Electrical Stimulation: Cervical 15 mins (17) mA Therapy Performed by:: Gaviota Villalpando Traction, Mechanical: Yes Patient Response: positive Assessment and Plan Assessment and Plan (1 (more content not included)... Normal [facility] Chiropractic Reporton 2023 Chiropractic Report [facility] [address] [place] [address] OFFICE VISIT Date of Service: 03/15/24 MR#: [id number] Acct: [id number] Name: MEG DUFFY Rep #: [id number] : 1960 Provider: LAYNE Michael Age/Sex: 63/F Location: [facility] Status: Signed Intake Vital Signs 03/24/22 10:06 Height 5 ft 5 in Intake Visit Reasons: Back pain Chief Complaint: neck and Upper back pain Is patient in pain?: Yes (neck) Pain scale (1-10): 3 Allergies adhesive tape Adverse Reaction (Mild, Verified 03/15/24 16:37) itching Medications ???Medication ???Instructions ???Recorded ???Confirmed ???Type ascorbic acid (vitamin C) 500 mg 1,000 mg PO DAILY@0800 supplement 05/09/14 03/15/24 History tablet calcium-vitamin D3-vitamin K 500 1 ea PO BID supplement 05/09/14 03/15/24 History mg-500 unit-40 mcg chewable tablet tizanidine 4 mg tablet 4 mg PO QHS pain 11/14/14 03/15/24 History duloxetine 20 mg capsule,delayed 30 mg PO DAILY pain 05/15/19 03/15/24 History release (Cymbalta) melatonin 3 mg capsule 3 mg PO HS sleep 05/15/19 03/15/24 History acetaminophen 500 mg tablet 1,000 mg (2 x 500 mg) PO Q8 08/23/19 03/15/24 Rx glucosamine sulf dipot 2 cap PO BID 04/17/21 03/15/24 History chlr,msm,chond 550 mg-C 30 mg-ronak 1 mg capsule (Glucosamine Chondroitin) cetirizine 10 mg capsule (Zyrtec) 10 mg PO DAILY #30 caps 04/25/21 03/15/24 Rx celecoxib 50 mg capsule (Celebrex) 200 mg PO DAILY pain 03/24/22 03/15/24 History PFSH Medical History Sinusitis DDD (degenerative disc disease), lumbar Knee pain, right History of back pain Post hysterectomy menopause Arthritis Deficiency of internal organs Polyneuropathy Surgical History S/P laparoscopic assisted vaginal hysterectomy (LAVH) H/O arthroscopy of right knee History of bunionectomy of left great toe H/O tubal ligation H/O hernia repair Hx of rotator cuff surgery History of surgical removal of ganglion cyst Total knee replacement status Family History Mother Breast cancer Dementia Father [...] activity do you participate in: none HPI Back pain Chief Complaint: Neck/Upper back pain Visit Number: 9 Details: Meg Duffy is a 63 year old F here to f/u on neck and low back pain. Pt. advises her neck is tight and tense causing her a ALMEIDA this morning. She rates her neck pain 3/10 today. She denies low back pain today. She continues to treat pain at home with Tylenol and stretching as needed. She denies new injury, numbness, tingling, or radiculopathy at this time. She reports chiropractic adjustments and E-stim are helpful in alleviating her pain/discomfort but it gradually returns. Location: neck/low back Duration: frequent, intermittent Aggravating or associated factors: prolonged standing, bending, twisting, computer work Relieving factors: chiro Pain Quality: aching, dull and other (tight) Exam Musc General: Yes normal posture, normal gait, joint tenderness and decreased range of motion Cervical Spine: Yes loss of normal cervical lordosis, Yes cervical muscular tenderness bilateral diffuse , Yes cervical spasm bilateral lower trapezius, paracervical muscles and intrinsics, left upper intrinsics and Yes misalignment misalignment: C1, C2, C5, C6 and C7 Thoracic/Lumber: No thoracic and lumbar spine normal to inspection, Yes paraspinal tenderness bilaterally in the upper thoracic and in the mid thoracic and on the right greater than left (lumbopelvic), Yes thoraco-lumbar spasm bilaterally (trap, levator) in the upper thoracic and in the mid thoracic and on the right greater than left (QL) and Yes misalignment T3, T4, T5, T6, T11, T12, L1, L4, L5 and RIL Sacroiliac joints: on the right tender to palpation Office Procedures Procedures - Chiropractic Procedures Manipulation: Cervical C6, Lumbar L4, Thoracic T3 and T6 and Pelvis RIL Manipulation: 3-4 regions Electronic Stimulation: Yes Electrical Stimulation: Cervical 15 mins (18) mA Therapy Performed by:: Gaviota Villalpando Traction, Mechanical: Yes Patient Response: positive Assessment and Plan Assessment and Plan (1) Back pain: Status: Acute Qualifiers: Back pain laterality: right Back pain location: low ba (more content not included)... Normal [facility] Chiropractic Reporton 2023 Chiropractic Report [facility] [address] [place] [address] OFFICE VISIT Date of Service: 02/23/24 MR#: [id number] Acct: [id number] Name: MEG DUFFY Rep #: [id number] : 1960 Provider: LAYNE Michael Age/Sex: 63/F Location: [facility] Status: Signed Intake Vital Signs 03/24/22 10:06 Height 5 ft 5 in Intake Visit Reasons: Back pain Chief Complaint: neck and Upper back pain Is patient in pain?: No Allergies adhesive tape Adverse Reaction (Mild, Verified 02/23/24 16:37) itching Medications ???Medication ???Instructions ???Recorded ???Confirmed ???Type ascorbic acid (vitamin C) 500 mg 1,000 mg PO DAILY@0800 supplement 05/09/14 02/23/24 History tablet calcium-vitamin D3-vitamin K 500 1 ea PO BID supplement 05/09/14 02/23/24 History mg-500 unit-40 mcg chewable tablet tizanidine 4 mg tablet 4 mg PO QHS pain 11/14/14 02/23/24 History duloxetine 20 mg capsule,delayed 30 mg PO DAILY pain 05/15/19 02/23/24 History release (Cymbalta) melatonin 3 mg capsule 3 mg PO HS sleep 05/15/19 02/23/24 History acetaminophen 500 mg tablet 1,000 mg (2 x 500 mg) PO Q8 08/23/19 02/23/24 Rx glucosamine sulf dipot 2 cap PO BID 04/17/21 02/23/24 History chlr,msm,chond 550 mg-C 30 mg-ronak 1 mg capsule (Glucosamine Chondroitin) cetirizine 10 mg capsule (Zyrtec) 10 mg PO DAILY #30 caps 04/25/21 02/23/24 Rx celecoxib 50 mg capsule (Celebrex) 200 mg PO DAILY pain 03/24/22 02/23/24 History PFSH Medical History Sinusitis DDD (degenerative disc disease), lumbar Knee pain, right History of back pain Post hysterectomy menopause Arthritis Deficiency of internal organs Polyneuropathy Surgical History S/P laparoscopic assisted vaginal hysterectomy (LAVH) H/O arthroscopy of right knee History of bunionectomy of left great toe H/O tubal ligation H/O hernia repair Hx of rotator cuff surgery History of surgical removal of ganglion cyst Total knee replacement status Family History Mother Breast cancer Dementia Father [...] activity do you participate in: none HPI Back pain Chief Complaint: Neck/Upper back pain Visit Number: 8 Details: Meg Duffy is a 63 year old F here to f/u on neck and low back pain. Pt. advises her last adjustment was helpful in alleviating her pain and stiffness but it has gradually returned. She recently returned from vacation and just went back to work. Since she has not been working she has not experienced pain. She reports stiffness in her neck. She denies low back pain today. She continues to treat pain at home with Tylenol and stretching as needed. She denies low back pain today. She denies new injury, numbness, tingling, or radiculopathy at this time. She reports chiropractic adjustments and E-stim are helpful in alleviating her pain/discomfort. Location: neck/low back Duration: frequent, intermittent Aggravating or associated factors: prolonged standing, bending, twisting, computer work Relieving factors: chiro Pain Quality: aching, dull and other (tight) Exam Musc General: Yes normal posture, normal gait, joint tenderness and decreased range of motion Cervical Spine: Yes loss of normal cervical lordosis, Yes cervical muscular tenderness bilateral lower , Yes cervical spasm bilateral lower trapezius, paracervical muscles and intrinsics, left upper intrinsics and Yes misalignment misalignment: C1, C2, C5, C6 and C7 Thoracic/Lumber: No thoracic and lumbar spine normal to inspection, Yes paraspinal tenderness bilaterally in the upper thoracic and in the mid thoracic and on the right greater than left (lumbopelvic), Yes thoraco-lumbar spasm bilaterally (trap, levator) in the upper thoracic and in the mid thoracic and on the right greater than left (QL) and Yes misalignment T3, T4, T5, T6, T11, T12, L1, L4, L5 and RIL Sacroiliac joints: on the right tender to palpation Office Procedures Procedures - Chiropractic Procedures Manipulation: Cervical C6, Lumbar L4, Thoracic T3 and T6 and Pelvis RIL Manipulation: 3-4 regions Electronic Stimulation: Yes Electrical Stimulation: Cervical 15 mins (13) mA Therapy Performed by:: Cyndee Scott, Mechanical: Yes Patient Response: positive (more content not included)... Normal [facility] Absolute lymphocyte countOrd ered By: HEALTH ASSESSMENT on 05-05-2023 Lymphocytes Auto (Unsp spec) [#/Vol] 1.60 10*3/uL 0.83-4.51 [facility] Absolute reticulocyte countO rdered By: HEALTH ASSESSMENT on 05-05-2023 Reticulocytes (Bld) [#/Vol] 0.00 10*3/uL 0-5 [facility] Basophil percentageOrdered B y: HEALTH ASSESSMENT on 05-05-2023 Basophil percentage 4.5 mg/dL 2.5-4.9 [facility] Bilirubin [Mass/Vol] 0.70 mg/dL 0.20-1.00 [facility] Comment on above: For patients on eltr ombopag therapy, use of Dimension Red Bud TBIL is not recommended. Chloride [Moles/Vol] 110 mmol/L 98-107 [facility] Cholesterol [Mass/Vol] 233 mg/dL <200 [facility] Comment on above: <200 mg/dL Desirable 200-240 mg/dL Borderline >240 mg/dL High Risk Glucose [Mass/Vol] 97 mg/dL 74-106 [facility] LDH [Catalytic activity/Vol] 210 U/L 84-246 [facility] Neutrophils (Bld) [#/Vol] 2.4 10*3/uL 2.0-7.7 [facility] Potassium [Moles/Vol] 4.2 mmol/L 3.5-5.1 [facility] Protein [Mass/Vol] 7.0 g/dL 6.4-8.2 [facility] Sodium [Moles/Vol] 143 mmol/L 136-145 [facility] Triglyceride [Mass/Vol] 68 mg/dL <199 [facility] Comment on above: The drugs N-Acetylcy steine and Metamizole may falsely depress this assay.Serum Triglycerides Reference Interval Normal <150 mg/dL Borderline high 150 - 199 mg/dL High 200 - 499 mg/dL Very High > or = 500 mg/dL WBC (Bld) [#/Vol] 4.5 10*3/uL 4.4-11.0 [facility] Blood erythrocytes count (nu mber/volume)Ordered By: HEALTH ASSESSMENT on 05-05-2023 RBC (Bld) [#/Vol] 4.95 10*6/uL 4.2-5.4 [facility] Blood hemoglobin measurement (mass/volume)Ordered By: HEALTH ASSESSMENT on 05-05-2023 Hemoglobin (Bld) [Mass/Vol] 14.4 g/dL 12.0-15.0 [facility] Blood platelet mean volumeOr dered By: HEALTH ASSESSMENT on 05-05-2023 Platelet mean volume (Bld) [Entitic vol] 8.8 fL 6.2-12.0 [facility] Determination of erythrocyte mean corpuscular volume (MCV)Ordered By: HEALTH ASSESSMENT on 05-05-2023 MCV (RBC) [Entitic vol] 87.3 fL 81-99 [facility] Direct bilirubinOrdered By: HEALTH ASSESSMENT on 05-05-2023 Bilirubin.direct [Mass/Vol] 0.18 mg/dL 0.00-0.30 [facility] Hematocrit Auto (Bld) [Volum e fraction]Ordered By: HEALTH ASSESSMENT on 05-05-2023 Hematocrit (Bld) [Volume fraction] 43.2 % 37-47 [facility] Laboratory - Chemistry and C hemistry - challengeOrdered By: HEALTH ASSESSMENT on 05-05-2023 ALP [Catalytic activity/Vol] 74 U/L 45-117 [facility] ALT [Catalytic activity/Vol] 26 U/L 13-56 [facility] Cholesterol.total/Rubina sterol in HDL [Mass ratio] 2.80 {ratio} [facility] CO2 [Moles/Vol] 26.0 mmol/L 21.0-32.0 [facility] Globulin (S) [Mass/Vol] 3.3 g/dL 2.2-4.2 [facility] Urea nitrogen/Creatinine [Mass ratio] 17.4 mg/mg 10-20 [facility] Laboratory - Hematology and Cell countsOrdered By: HEALTH ASSESSMENT on 05-05-2023 Erythrocyte distribution width (RBC) [Entitic vol] 42.0 fL 35.1-43.9 [facility] Erythrocyte distribution width (RBC) [Ratio] 13.1 % 11.6-14.6 [facility] MCH (RBC) [Entitic mass] 29.1 pg 27.0-32.0 [facility] Nucleated RBC/100 WBC (Bld) [Ratio] 0 % 0-5 [facility] MCHC Auto (RBC) [Mass/Vol]Or dered By: HEALTH ASSESSMENT on 05-05-2023 MCHC (RBC) [Mass/Vol] 33.3 g/dL 32-36 [facility] No Panel InformationOrdered By: HEALTH ASSESSMENT on 05-05-2023 Estimated GFR (MDRD) Amer 86 mL/min >60 [facility] Comment on above: GFR Calc Estimated GFR (MDRD) Non-Af Amer 71 mL/min >60 [facility] Comment on above: Non- GFR Calc Platelets bldOrdered By: HEA LT ASSESSMENT on 05-05-2023 Platelets (Bld) [#/Vol] 223 10*3/uL 150-450 [facility] Segmented neutrophils/100 WB C Auto (Bld)Ordered By: HEALTH ASSESSMENT on 05-05-2023 Segmented neutrophils/100 WBC (Bld) 53.2 % 47-70 [facility] Serum or plasma albumin kashif urement (mass/volume)Ordered By: HEALTH ASSESSMENT on 05-05-2023 Albumin [Mass/Vol] 3.7 g/dL 3.2-5.0 [facility] Serum or plasma albumin/glob ulin mass ratioOrdered By: HEALTH ASSESSMENT on 05-05-2023 Albumin/Globulin [Mass ratio] 1.1 {ratio} 0.9-2.4 [facility] Serum or plasma calcium kashif urement (mass/volume)Ordered By: HEALTH ASSESSMENT on 05-05-2023 Calcium [Mass/Vol] 8.9 mg/dL 8.5-10.1 [facility] Serum or plasma cholesterol in HDL measurement (mass/volume)Ordered By: HEALTH ASSESSMENT on 05-05-2023 Cholesterol in HDL [Mass/Vol] 82 mg/dL >40 [facility] Comment on above: The drugs N-Acetylcy steine and Metamizole may falsely depress this assay. Reference Range HDL <40 mg/dL Low HDL Cholesterol HDL >or= 60 mg/dL High HDL Cholesterol Serum or plasma cholesterol in VLDL measurement (mass/volume)Ordered By: HEALTH ASSESSMENT on 05-05-2023 Cholesterol in VLDL [Mass/Vol] 14 mg/dL 5-40 [facility] Serum or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 acute Segmental and somatic dysfunction of lumbar region acute Segmental and somatic dysfunction of pelvic region acute Segmental and somatic dysfunction of thoracic region acute DDD (degenerative disc disease), lumbar chronic [facility] Work Phone: Evaluation note* Diagnosis Onset Date Resolution Status Neck pain acute Segmental and somatic dysfunction of cervical region acute Segmental and somatic dysfunction of lumbar region acute Segmental and somatic dysfunction of pelvic region acute Segmental and somatic dysfunction of thoracic region acute DDD (degenerative disc disease), lumbar chronic Neck pain acute Segmental and somatic dysfunction of cervical region acute Segmental and somatic dysfunction of lumbar region acute Segmental and somatic dysfunction of pelvic region acute Segmental and somatic dysfunction of thoracic region acute DDD (degenerative disc disease), lumbar chronic Neck pain acute Segmental and somatic dysfunction of cervical region acute Segmental and somatic dysfunction of lumbar region acute Segmental and somatic dysfunction of pelvic region acute Segmental and somatic dysfunction of thoracic region acute DDD (degenerative disc disease), lumbar chronic Neck pain acute Segmental and somatic dysfunction of cervical region acute Segmental and somatic dysfunction of lumbar region acute Segmental and somatic dysfunction of pelvic region acute Segmental and somatic dysfunction of thoracic region acute DDD (degenerative disc disease), lumbar chronic Neck pain acute Segmental and somatic dysfunction of cervical region acute Segmental and somatic dysfunction of lumbar region acute Segmental and somatic dysfunction of pelvic region acute Segmental and somatic dysfunction of thoracic region acute DDD (degenerative disc disease), lumbar chronic Neck pain acute Segmental and somatic dysfunction of cervical region acute Segmental and somatic dysfunction of lumbar region acute Segmental and somatic dysfunction of pelvic region acute Segmental and somatic dysfunction of thoracic region acute DDD (degenerative disc disease), lumbar chronic Neck pain acute Segmental and somatic dysfunction of cervical region acute Segmental and somatic dysfunction of lumbar region acute Segmental and somatic dysfunction of pelvic region acute Segmental and somatic dysfunction of thoracic region acute DDD (degenerative disc disease), lumbar chronic [facility] Work Phone: Evaluation note* Diagnosis Onset Date Resolution Status Neck pain acute Segmental and somatic dysfunction of cervical region acute Segmental and somatic dysfunction of lumbar region acute Segmental and somatic dysfunction of pelvic region acute Segmental and somatic dysfunction of thoracic region acute DDD (degenerative disc disease), lumbar chronic Neck pain acute Segmental and somatic dysfunction of cervical region acute Segmental and somatic dysfunction of lumbar region acute Segmental and somatic dysfunction of pelvic region acute Segmental and somatic dysfunction of thoracic region acute DDD (degenerative disc disease), lumbar chronic Neck pain acute Segmental and somatic dysfunction of cervical region acute Segmental and somatic dysfunction of lumbar region acute Segmental and somatic dysfunction of pelvic region acute Segmental and somatic dysfunction of thoracic region acute DDD (degenerative disc disease), lumbar chronic Neck pain acute Segmental and somatic dysfunction of cervical region acute Segmental and somatic dysfunction of lumbar region acute Segmental and somatic dysfunction of pelvic region acute Segmental and somatic dysfunction of thoracic region acute DDD (degenerative disc disease), lumbar chronic Neck pain acute Segmental and somatic dysfunction of cervical region acute Segmental and somatic dysfunction of lumbar region acute Segmental and somatic dysfunction of pelvic region acute Segmental and somatic dysfunction of thoracic region acute DDD (degenerative disc disease), lumbar chronic [facility] Work Phone: Hospital Discharge instructions* Instructions* Lizzie Perez MD - 08/21/2021 As we discussed if you have concerns for shortness of breath, chest pain, sudden weakness, loss of sensation or other concerning symptoms return to the ED. Follow-up with the trauma clinic as instructed. 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 Pilot Yes September 22, 2021 5:35pm Advance Directive Response Recorded Date/ Time Advance Directives No November 04 11:01am Living Will Yes September 22 4:35pm Power of Aerial Applicator Pilot Yes September 22, 2021 4:35pm Advance Directive Response Recorded Date/ Time Advance Directives No November 04 12:01pm Chief Complaint and Reason for Visit Chief Complaint Back pain Back pain Back pain Back pain Back pain RT BREAST PAIN/MASS RIGHT BREAST LUMP/BIRADS 2 Reason for Visit Neck pain Segmental and somatic dysfunction of cervical region Segmental and somatic dysfunction of lumbar region Segmental and somatic dysfunction of pelvic region Segmental and somatic dysfunction of thoracic region DDD (degenerative disc disease), lumbar Neck pain Segmental and somatic dysfunction of cervical region Segmental and somatic dysfunction of lumbar region Segmental and somatic dysfunction of pelvic region Segmental and somatic dysfunction of thoracic region DDD (degenerative disc disease), lumbar Neck pain Segmental and somatic dysfunction of cervical region Segmental and somatic dysfunction of lumbar region Segmental and somatic dysfunction of pelvic region Segmental and somatic dysfunction of thoracic region DDD (degenerative disc disease), lumbar Neck pain Segmental and somatic dysfunction of cervical region Segmental and somatic dysfunction of lumbar region Segmental and somatic dysfunction of pelvic region Segmental and somatic dysfunction of thoracic region DDD (degenerative disc disease), lumbar Neck pain Segmental and somatic dysfunction of cervical region Segmental and somatic dysfunction of lumbar region Segmental and somatic dysfunction of pelvic region Segmental and somatic dysfunction of thoracic region DDD (degenerative disc disease), lumbar Breast pain, right Posttraumatic hematoma of right breast Chief Complaint Back pain Back pain RT BREAST PAIN/MASS RIGHT BREAST LUMP/BIRADS 2 Back pain [employer] Back pain 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 Neck pain Segmental and somatic dysfunction of cervical region Segmental and somatic dysfunction of lumbar region Segmental and somatic dysfunction of pelvic region Segmental and somatic dysfunction of thoracic region DDD (degenerative disc disease), lumbar Neck pain Segmental and somatic dysfunction of cervical region Segmental and somatic dysfunction of lumbar region Segmental and somatic dysfunction of pelvic region Segmental and somatic dysfunction of thoracic region DDD (degenerative disc disease), lumbar Breast pain, right Posttraumatic hematoma of right breast Neck pain Segmental and somatic dysfunction of cervical region Segmental and somatic dysfunction of lumbar region Segmental and somatic dysfunction of pelvic region Segmental and somatic dysfunction of thoracic region DDD (degenerative disc disease), lumbar Neck pain Segmental and somatic dysfunction of cervical region Segmental and somatic dysfunction of lumbar region Segmental and somatic dysfunction of pelvic region Segmental and somatic dysfunction of thoracic region DDD (degenerative disc disease), lumbar Neck pain Segmental and somatic dysfunction of cervical region Segmental and somatic dysfunction of lumbar region Segmental and somatic dysfunction of pelvic region Segmental and somatic dysfunction of thoracic region DDD (degenerative disc disease), lumbar Chief Complaint Back pain Back pain Back pain Back pain Back pain [employer] 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[employer] Reason for Visit Neck pain Segmental and somatic dysfunction of cervical region Segmental and somatic dysfunction of lumbar region Segmental and somatic dysfunction of pelvic region Segmental and somatic dysfunction of thoracic region DDD (degenerative disc disease), lumbar Neck pain Segmental and somatic dysfunction of cervical region Segmental and somatic dysfunction of lumbar region Segmental and somatic dysfunction of pelvic region Segmental and somatic dysfunction of thoracic region DDD (degenerative disc disease), lumbar Neck pain Segmental and somatic dysfunction of cervical region Segmental and somatic dysfunction of lumbar region Segmental and somatic dysfunction of pelvic region Segmental and somatic dysfunction of thoracic region DDD (degenerative disc disease), lumbar Neck pain Segmental and somatic dysfunction of cervical region Segmental and somatic dysfunction of lumbar region Segmental and somatic dysfunction of pelvic region Segmental and somatic dysfunction of thoracic region DDD (degenerative disc disease), lumbar Neck pain Segmental and somatic dysfunction of cervical region Segmental and somatic dysfunction of lumbar region Segmental and somatic dysfunction of pelvic region Segmental and somatic dysfunction of thoracic region DDD (degenerative disc disease), lumbar Chief Complaint Admit Date Back pain October 09, 2024 4 :27pm Back pain October 30, 2024 4:22pm back pain November 20, 2024 4:2 4pm back pain December 11, 2024 4:41 pm BACK PAIN January 01, 2025 4:2 4pm BACK PAIN January 31, 2025 4:25p m Reason for Visit Admit Date Segmental and somatic dysfunction of cer vical region October 09, 2024 4:27pm Segmental and somatic dysfunction of lum bar region October 09, 2024 4:27pm Segmental and somatic dysfunction of pel charlee region October 09, 2024 4:27pm Segmental and somatic dysfunction of tho racic region October 09, 2024 4:27pm DDD (degenerative disc disease), lumbar October 09, 2024 4:27pm Segmental and somatic dysfunction of cer vical region October 30, 2024 4:22pm Segmental and somatic dysfunction of lum bar region October 30, 2024 4:22pm Segmental and somatic dysfunction of pel charlee region October 30, 2024 4:22pm Segmental and somatic dysfunction of tho racic region October 30, 2024 4:22pm DDD (degenerative disc disease), lumbar October 30, 2024 4:22pm Back pain November 20, 2024 4:2 4pm Segmental and somatic dysfunction of cer vical region November 20, 2024 4:24pm Segmental and somatic dysfunction of lum bar region November 20, 2024 4:24pm Segmental and somatic dysfunction of pel charlee region November 20, 2024 4:24pm Segmental and somatic dysfunction of tho racic region November 20, 2024 4:24pm DDD (degenerative disc disease), lumbar November 20, 2024 4:24pm Segmental and somatic dysfunction of cer vical region December 11, 2024 4:41pm Segmental and somatic dysfunction of lum bar region December 11, 2024 4:41pm Segmental and somatic dysfunction of pel charlee region December 11, 2024 4:41pm Segmental and somatic dysfunction of tho racic region December 11, 2024 4:41pm DDD (degenerative disc disease), lumbar December 11, 2024 4:41pm Segmental and somatic dysfunction of cer vical region January 01, 2025 4:24pm Segmental and somatic dysfunction of lum bar region January 01, 2025 4:24pm Segmental and somatic dysfunction of pel charlee region January 01, 2025 4:24pm Segmental and somatic dysfunction of tho racic region January 01, 2025 4:24pm DDD (degenerative disc disease), lumbar January 01, 2025 4:24pm Back pain January 31, 2025 4:25p m Segmental and somatic dysfunction of cer vical region January 31, 2025 4:25pm Segmental and somatic dysfunction of lum bar region January 31, 2025 4:25pm Segmental and somatic dysfunction of pel charlee region January 31, 2025 4:25pm Segmental and somatic dysfunction of tho racic region January 31, 2025 4:25pm DDD (degenerative disc disease), lumbar January 31, 2025 4:25pm Chief Complaint Admit Date Back pain October 30, 2024 4:22pm back pain November 20, 2024 4:2 4pm back pain December 11, 2024 4:41 pm BACK PAIN January 01, 2025 4:2 4pm BACK PAIN January 31, 2025 4:25p m BACK PAIN February 19, 2025 4:30 pm Reason for Visit Admit Date Segmental and somatic dysfunction of cer vical region October 30, 2024 4:22pm Segmental and somatic dysfunction of lum bar region October 30, 2024 4:22pm Segmental and somatic dysfunction of pel charlee region October 30, 2024 4:22pm Segmental and somatic dysfunction of tho racic region October 30, 2024 4:22pm DDD (degenerative disc disease), lumbar October 30, 2024 4:22pm Back pain November 20, 2024 4:2 4pm Segmental and somatic dysfunction of cer vical region November 20, 2024 4:24pm Segmental and somatic dysfunction of lum bar region November 20, 2024 4:24pm Segmental and somatic dysfunction of pel charlee region November 20, 2024 4:24pm Segmental and somatic dysfunction of tho racic region November 20, 2024 4:24pm DDD (degenerative disc disease), lumbar November 20, 2024 4:24pm Segmental and somatic dysfunction of cer vical region December 11, 2024 4:41pm Segmental and somatic dysfunction of lum bar region December 11, 2024 4:41pm Segmental and somatic dysfunction of pel charlee region December 11, 2024 4:41pm Segmental and somatic dysfunction of tho racic region December 11, 2024 4:41pm DDD (degenerative disc disease), lumbar December 11, 2024 4:41pm Segmental and somatic dysfunction of cer vical region January 01, 2025 4:24pm Segmental and somatic dysfunction of lum bar region January 01, 2025 4:24pm Segmental and somatic dysfunction of pel charlee region January 01, 2025 4:24pm Segmental and somatic dysfunction of tho racic region January 01, 2025 4:24pm DDD (degenerative disc disease), lumbar January 01, 2025 4:24pm Back pain January 31, 2025 4:25p m Segmental and somatic dysfunction of cer vical region January 31, 2025 4:25pm Segmental and somatic dysfunction of lum bar region January 31, 2025 4:25pm Segmental and somatic dysfunction of pel charlee region January 31, 2025 4:25pm Segmental and somatic dysfunction of tho racic region January 31, 2025 4:25pm DDD (degenerative disc disease), lumbar January 31, 2025 4:25pm Segmental and somatic dysfunction of cer vical region February 19, 2025 4:30pm Segmental and somatic dysfunction of lum bar region February 19, 2025 4:30pm Segmental and somatic dysfunction of pel charlee region February 19, 2025 4:30pm Segmental and somatic dysfunction of tho racic region February 19, 2025 4:30pm DDD (degenerative disc disease), lumbar February 19, 2025 4:30pm Additional Source Comments INFORMATION SOURCE (unrecogn ized section and content) DATE CREATED AUTHOR 06/13/2021 [facility] ([place]) DATE CREATED AUTHOR AUTHOR'S ORGANIZ ATION 11/27/2021 [facility] DATE CREATED AUTHOR AUTHOR'S ORGANIZ ATION 02/19/2025 [facility] Ordered Prescriptions (unrec ognized section and content) [...] hour of each other unless specifically ordered. 1922 (Given - Provider: Rock Parisi RN) lactated ringers bolus (COMPLETED) 1,000 mL, IntraVENous, at 1,000 mL/hr, Administer over 1 Hours, ONCE, On Angela 08/20/21 at 2345, For 1 dose 0001 (New Bag - Provider: Rock Parisi RN)0136 (Stopped - Provider: Rock Parisi RN) Care Teams (unrecognized sec tion and content) Team Status: Active Member Role Status Dates Dr. Waldemar Raymond MD Family Provider Active Dr. Waldemar Raymond MD Primary Care Provider Activ e Team Status: Inactive Member Role Status Dates Dr. Waldemar Raymond MD Primary Care Provider, Refe rring Provider Active Dr. Beti Anthony DC Attending Provider Active Team Status: Inactive Member Role Status Dates Dr. Waldemar Raymond MD Primary Care Provider, Refe rring Provider Active Bakari AIKEN, PA Attending Provider Active Team Status: Inactive Member Role Status Dates Dr. Waldemar Raymond MD Primary Care Provider Activ e Satya AIKEN, PA-C Attending Provider, Referring Pr marianela Active Team Status: Inactive Member Role Status Dates Dr. Waldemar Raymond MD Primary Care Provider Activ e Dr. Jac Monsivais MD Attending Provider, Referring Provider Active Team Status: Active Member Role Status Dates Dr. Waldemar Raymond MD Primary Care Provider Activ e Jac Monsivais MD Attending Provider Active Dr. Jac Monsivais MD Referring Provider Active Team Status: Active Member Role Status Dates Dr. Waldemar Raymond MD Primary Care Provider, Attending Provider, Referring Provider Active Team Status: Inactive Member Role Status Dates Dr. Waldemar Raymond MD Primary Care Provider Activ e Jac Monsivais MD Attending Provider Active Dr. Jac Monsivais MD Referring Provider Active Team Status: Inactive Member Role Status Dates Dr. Waldemar Raymond MD Primary Care Provider, Attending Provider, Referring Provider Active Team Status: Active Member Role Status Dates Dr. Waldemar Raymond MD Primary Care Provider Activ e Health Risk Assessment Attending Provider, Referring P sally Active Team Status: Active Member Role Status Dates Dr. Ari Raymond MD Family Provider Active Dr. Ari Raymond MD Primary Care Provider Acti ve Team Status: Inactive Member Role Status Dates Dr. Ari Raymond MD Primary Care Provider Acti ve Start: October 09, 2024 End: October 09, 2024 Dr. Ari Raymond MD Referring Provider Active Start: October 09, 2024 End: October 09, 2024 Dr. Beti Anthony DC Attending Provider Active S tart: October 09, 2024 End: October 09, 2024 Team Status: Inactive Member Role Status Dates Dr. Ari Raymond MD Primary Care Provider Acti ve Start: October 30, 2024 End: October 30, 2024 Dr. Ari Raymond MD Referring Provider Active Start: October 30, 2024 End: October 30, 2024 Dr. Beti Anthony DC Attending Provider Active S tart: October 30, 2024 End: October 30, 2024 Team Status: Inactive Member Role Status Dates Dr. Ari Raymond MD Primary Care Provider Acti ve Start: November 20, 2024 End: November 20, 2024 Dr. Ari Raymond MD Referring Provider Active Start: November 20, 2024 End: November 20, 2024 Dr. Beti Anthony DC Attending Provider Active S tart: November 20, 2024 End: November 20, 2024 Team Status: Inactive Member Role Status Dates Dr. Ari Raymond MD Primary Care Provider Acti ve Start: December 11, 2024 End: December 11, 2024 Dr. Ari Raymond MD Referring Provider Active Start: December 11, 2024 End: December 11, 2024 Dr. Beti Anthony DC Attending Provider Active S tart: December 11, 2024 End: December 11, 2024 Team Status: Inactive Member Role Status Dates Dr. Ari Raymond MD Primary Care Provider Acti ve Start: January 01, 2025 End: January 01, 2025 Dr. Ari Raymond MD Referring Provider Active Start: January 01, 2025 End: January 01, 2025 Dr. Beti Anthony DC Attending Provider Active S tart: January 01, 2025 End: January 01, 2025 Team Status: Inactive Member Role Status Dates Dr. Ari Raymond MD Primary Care Provider Acti ve Start: January 31, 2025 End: January 31, 2025 Dr. Ari Raymond MD Referring Provider Active Start: January 31, 2025 End: January 31, 2025 Dr. Beti Anthony DC Attending Provider Active S tart: January 31, 2025 End: January 31, 2025 Team Status: Inactive Member Role Status Dates Dr. Ari Raymond MD Primary Care Provider Acti ve Start: February 19, 2025 End: February 19, 2025 Dr. Ari Raymond MD Referring Provider Active Start: February 19, 2025 End: February 19, 2025 Dr. Beti Anthony DC Attending Provider Active S tart: February 19, 2025 End: February 19, 2025 FOR RECORDS PERTAINING TO PATIENTS WHO ARE [...] BE BASED ON THE PRIMARY CLINICAL RECORDS. [facility] [employer] provides no warranty or guarantee of the accuracy or completeness of information in this document.
== END | disposition home or self-care (01) ==
LOC: MTRAD 15:24
PROVIDERS: PCP Family Medicine
DX: M77.9 Enthesopathy, unspecified (principal)
CPT/HCPCS: 73130

== ENCOUNTER → 2025-05-28 | Outpatient (CLI) | payer OTHER, SELFPAY ==
--- NOTE | 2025-05-28 15:15 | BD_ITS ---
PROCEDURE: DEXA BONE DENSITY STUDY 05/28/2025 REASON FOR EXAM: F, age 65 y/o . TECHNIQUE: Procedure Code: BDDBD Modality: DX Procedure: DEXA BONE DENSITY STUDY COMPARISON: 06/02/2022 FINDINGS: BMD and T-SCORES Lumbar spine: 1.447 g/cm2, T-score 3.6 Levels: L1 through L4 Left femoral neck: 0.833 g/cm2, T-score -0.1 Left total hip: 1.084 g/cm2, T-score 1.2 Change from prior: -1%. Right femoral neck: 0.855 g/cm2, T-score 0.1 Right total hip: 1.086 g/cm2, T-score 1.2 Change from prior: +0.7%. The World Health Organization has defined the following categories based on bone density: Normal bone density: T-score equal to or greater than -1.0 Osteopenia: T-score between -1.0 and -2.5 Osteoporosis: T-score equal to or less than -2.5 FRAX (or Comparable) Fracture Risk Assessment: 10 Year Probability of Fracture: Major Osteoporotic Fracture: 9.9% Hip Fracture: 0.2% (Note: FRAX is not to be reported in setting of normal range bone density, osteoporosis on DEXA, known history of osteoporosis, prior osteoporotic hip or vertebral fracture, or for any patient undergoing pharmacological treatment for bone loss.) The National Osteoporosis Foundation (NOF) recommends pharmacological treatment for patients with a FRAX 10-year risk of 3% or higher for a hip fracture, or 20% or higher for a major osteoporotic fracture, to prevent osteoporosis and reduce fracture risk. The patient does not meet the pharmacological treatment recommendations for prevention of osteoporosis. BD/Dexa Bone Density Study IMPRESSION: The lumbar spine is abnormally dense. There is normal bone mineral density of both hips. Recommend follow-up as clinically warranted. Note: Review of the AP image of the lumbar spine, in this patient, demonstrates multilevel facet arthropathy and degenerative disc disease, as well as scoliosis. This artifactually elevates the bone clay miner al density measurement. In the future, the non dominant wrist should be used, rather than the lumbar spine, for the determinat ion of bone mineral density, in this patient. Reading Location: [facility]
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
== END | disposition home or self-care (01) ==
LOC: OPBD 15:14
PROVIDERS: PCP Family Medicine; Referring Provider Family Medicine; Visit Provider Family Medicine
DX: Z13.820 Encounter for screening for osteoporosis (principal); Z78.0 Asymptomatic menopausal state; Z12.31 Encounter for screening mammogram for malignant neoplasm of breast
CPT/HCPCS: 77063; 77067; 77080